=== PATIENT | male | born 1970 | race Caucasian/White ===

== ENCOUNTER 2018-10-11 09:42 | Inpatient (IN) | payer OTHER ==
[2018-10-11] MEDS ORDERED: ONDANSETRON 4 MG/2 ML VIAL IVPUSH ONE ×2 (09:59→13:02)
[2018-10-11] MEDS ORDERED: PANTOPRAZOLE SODIUM 40 MG VIAL IVPUSH ONE (09:59)
[2018-10-11] MEDS ORDERED: SODIUM CHLORIDE 0.9% 1000 ML INFUS.BAG IV ONE ×2 (10:00→11:54)
--- NOTE | 2018-10-11 10:06 | PDOC ---
History of Present Illness - General Chief Complaint: Pain Stated Complaint: VOMITING, ABD DISTENTION, DIARRHEA/CONSTIP Time Seen by Provider: 10/11/18 09:48 History Source: Patient Exam Limitations: No Limitations - History of Present Illness Initial Comments: 10/11/18 10:01 48 yo male here with his mother c/o abd pain n/v. states abd pain started one week ago. initially with mild discomfort and nausea, over the last 2 days pain has progressed to vomiting . pt has threw up today too many times to count. emesis is coffee grounds. abd distension and pain. mostly right sided. no h/o prior abd surgery. also c/o constipation. pt was started on amoxicillin and zofran by doctor few days ago for possible strept throat. had sick contact of nephew who had strept throat. no urinary complaints. does feel generalized weakness and lightheaded. denies vertigo. Past History - Past Medical History Allergies/Adverse Reactions: Allergies Allergy/AdvReac Type Severity Reaction Status Date / Time No Known Allergies Allergy Verified 10/11/18 09:44 Home Medications: Ambulatory Orders Amoxicillin - [Amoxicillin 500mg Capsule -] 500 mg PO BID 10/11/18 Ondansetron HCl [Zofran] 4 mg PO TID PRN 10/11/18 COPD: No Other medical history: CEREBRAL PALSEY Review of Systems - Review of Systems Constitutional: No: Chills, Diaphoresis, Fever HEENTM: No: Eye Pain Respiratory: Yes: Shortness of Breath. No: Cough, Orthopnea Cardiac (ROS): No: Chest Pain ABD/GI: Yes: Abdominal Distended, Constipated, Nausea, Vomiting : No: Burning, Dysuria Musculoskeletal: No: Back Pain, Gout Integumentary: No: Bruising All Other Systems: Reviewed and Negative *Physical Exam - Physical Exam Comments: 10/11/18 10:03 awake alert dry mucous membranes poor dentition. lungs with crackels right base , no wheezes normal effort. heart reg tachycardia. abd distended. RUQ ttp, pos whitmore's . mild right lower quad ttp. ext wwp no edema. skin warm and dry mild pallor. ED Treatment Course - LABORATORY CBC & Chemistry Diagram: 10/11/18 10:15 10/11/18 10:15 - RADIOLOGY Radiology Studies Ordered: Category Date Time Status CHEST X-RAY PORTABLE* [RAD] Stat Radiology 10/11/18 10:00 Ordered GALLBLADDER US [US] Stat Ultrasound 10/11/18 09:58 Ordered Medical Decision Making - Medical Decision Making 10/11/18 10:05 48 yo male with no pmhx here with n/v abd pain which started one week ago, distended abd with ruq ttp. differential cholecystitis, pud, gastric ulcer, perforated ulcer, appendicitis, pyelonephritis, renal colic, plan ruq us, labs lipase, if nondiagnostic will require ct a/p . upright chest xray r/o free air. if fluids rescusitationn, antacid and anti-emetics. 10/11/18 11:52 pt in renal failure creatinine of 3, high wbc 23. us gb normal. will obtain ct / no oral or iv contrast due to severe distension, vomiting concerns for aspiration, and renal failure. iv hydration given, second liter. cxr wtih what appears dilated loops bowel, unclear if free air. 10/11/18 13:03 pt case d/w dr correa promotion producer for surgery. bowel obstruction with free air. pt lactate 6, has been given 2 L NS. wbc 23. given zosyn. pt with persistant emesis in ED. difficult NG tube. dr correa requesting transfer to [facility] for operation there. will d/w ICU due to severity of illness. 10/11/18 13:16 pt d/w student career development specialist at [facility], microblog sent. d/w ICU at [facility]. awaiting transfer and call back from hospitalist. 10/11/18 13:[address] MERCEDES, PT ACCEPTED . 10/11/18 14:14 ng TUBE PLACED, 1400 mL OUT. D/W ANESTHESIA, PT TO BE INTUBATED IN OR BY ANESTHESIA DUE TO FULL STOMACH, concerns for difficult intubation. awaiting superintendent track for transfer to [facility]. 10/11/18 15:06 following ng tube placement, stomach decompressoin, oxygen sats improved to 95 % wth NC 10/11/18 18:51 *DC/Admit/Observation/Transfer Diagnosis at time of Disposition: Bowel perforation, Sepsis Bowel obstruction Qualifiers: Intestinal obstruction type: other intestinal obstruction Renal failure Qualifiers: Renal failure chronicity: acute - Discharge Dispostion Condition at time of disposition: Stable Decision to Admit order: Yes - Referrals - Patient Instructions - Post Discharge Activity
[2018-10-11] MEDS ORDERED: ONDANSETRON 4 MG/2 ML VIAL ONE ×2 (10:23→13:28)
[2018-10-11] MEDS ORDERED: PANTOPRAZOLE SODIUM 40 MG VIAL ONE (10:23)
[2018-10-11 10:31] LABS: HEMATOCRIT 49.6 % (35.4-49); HEMOGLOBIN 16.4 GM/dl (11.7-16.9); MEAN CELL VOLUME 90.9 fl (80-96); MEAN PLT VOLUME 9.5 fl (7.5-11.1); PLATELET COUNT 562 K/MM3 (134-434); RBC 5.45 M/mm3 (4.00-5.60); RDW 13.7 % (11.9-15.9); WHITE BLOOD COUNT 23.1 K/mm3 (4.0-10.8)
[2018-10-11 10:50] LABS: ALK PHOS 80 U/L (45-117); ANION GAP 23 MMOL/L (8-16); BILIRUBIN,TOTAL 1.7 mg/dl (0.2-1); BLOOD UREA NITROGEN 65 mg/dl (7-18); CHLORIDE 82 mmol/L (98-107); CO2 25 mmol/L (21-32); CREATININE 3.4 mg/dl (0.55-1.3); GLUCOSE,RANDOM 150 mg/dl (74-106); POTASSIUM 3.7 mmol/L (3.5-5.1); SGOT/AST 46 U/L (15-37); SGPT/ALT 31 U/L (13-61); SODIUM 130 mmol/L (136-145); TOT PROT 6.8 g/dl (6.4-8.2)
[2018-10-11 11:04] LABS: INR 1.35 (0.82-1.09)
[2018-10-11 11:39] LABS: PLATELET ESTIMATE INCREASED; SMUDGE CELLS FEW
[2018-10-11 12:10] LABS: LIPASE 76 U/L (73-393)
[2018-10-11] MEDS ORDERED: PIPERACILLIN/TAZOB 3.375 GM 3.375 GM in DEXTROSE 5%-WATER - 50 ML IVPB ONE (12:28)
[2018-10-11] MEDS ORDERED: PIPERACILLIN/TAZOBACTAM 3.375 GM VIAL IVPB ONE (12:46)
[2018-10-11] MEDS ORDERED: BENZOCAINE 20% UNIT DOSE SPRAY MM ONE (12:48)
[2018-10-11] MEDS ORDERED: ALBUTEROL SO4 2.5/IPRATROPIUM 0.5 INH SOL 3 ML VIAL.NEB. NEB ONE ×2 (13:03→13:06)
[2018-10-11] MEDS ORDERED: ACETAMINOPHEN INJECTION 100 ML IVPB ONE (13:08)
[2018-10-11] MEDS ORDERED: ACETAMINOPHEN 1000 MG/100 ML VIAL (NON FORMULARY) IVPB ONE (13:17)
--- NOTE | 2018-10-11 13:26 | CONSULT ---
Consult Consult Specialty:: General Surgery Reason for Consultation:: Abdominal pain and vomiting - History of Present Illness History of Present Illness: 48 yo male PMH CP here with his mother c/o abd pain n/v. states abd pain started one week ago. initially with mild discomfort and nausea, over the last 2 days pain has progressed to vomiting . pt has threw up today too many times to count. emesis is coffee grounds. abdominal distension and pain. mostly right sided. no h/o prior abdominal surgery. also c/o constipation. patient was started on amoxicillin and zofran by doctor few days ago for possible strept throat. had sick contact of nephew who had strept throat. no urinary complaints. does feel generalized weakness and lightheaded. denies vertigo. we were called after the CT scan resulted to assess. 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) - Alcohol/Substance Use Hx Alcohol Use: No History of Substance Use: reports: None - Smoking History Smoking history: Never smoked Have you smoked in the past 12 months: No - Social History Usual Living Arrangement: Alone Place of : [facility] History of Recent Travel: No Home Medications - Allergies Allergies/Adverse Reactions: Allergies Allergy/AdvReac Type Severity Reaction Status Date / Time No Known Allergies Allergy Verified 10/11/18 09:44 - Home Medications Home Medications: Ambulatory Orders Amoxicillin - [Amoxicillin 500mg Capsule -] 500 mg PO BID 10/11/18 Ondansetron HCl [Zofran] 4 mg PO TID PRN 10/11/18 Review of Systems - Review of Systems Constitutional: denies: Chills, Fever Eyes: denies: Blind Spots, Recent Change in Vision HENT: denies: Difficult Swallowing, Toothache Neck: denies: Decreased ROM, Pain on Movement Cardiovascular: denies: Chest Pain, Palpitations Respiratory: denies: Cough, SOB Gastrointestinal: reports: Abdominal Pain, Bloating, Indigestion Genitourinary: denies: Discharge, Dysuria Breasts: reports: No Symptoms Reported. denies: Pain Musculoskeletal: denies: Back Pain, Decreased ROM, Muscle Pain Integumentary: denies: Wound, Other Neurological: denies: Seizure, Syncope Endocrine: denies: Unexplained Weight Gain, Unexplained Weight Loss Hematology/Lymphatic: denies: Easily Bruised, Excessive Bleeding Psychiatric: denies: Anxiety, Depression Physical Exam Vital Signs: Vital Signs Temperature 100.9 F H 10/11/18 13:22 Pulse Rate 107 H 10/11/18 13:22 Respiratory Rate 38 H 10/11/18 13:22 Blood Pressure 131/74 10/11/18 13:22 O2 Sat by Pulse Oximetry (%) 92 L 10/11/18 13:22 Constitutional: Yes: Well Nourished, Calm, Mild Distress, Obese Eyes: Yes: Conjunctiva Clear, EOM Intact HENT: Yes: Atraumatic, Normocephalic Neck: Yes: Supple, Trachea Midline Cardiovascular: Yes: Regular Rate and Rhythm, S1, S2 Respiratory: Yes: Regular, CTA Bilaterally Gastrointestinal: Yes: Normal Bowel Sounds, Soft ...Rectal Exam: Yes: Deferred Renal/: No: CVA Tenderness - Left, CVA Tenderness - Right Breast(s): No: Discharge from Nipple, Nipple Inversion Musculoskeletal: No: Muscle Pain, Muscle Weakness Extremities: No: Cool, Cyanosis Edema: No Peripheral Pulses WNL: Yes Integumentary: No: Jaundice, Rash Neurological: Yes: Alert, Oriented Psychiatric: Yes: Alert, Oriented Labs: CBC, BMP 10/11/18 10:15 10/11/18 10:15 Imaging - Results Chest X-ray: Report Reviewed, Image Reviewed Cat Scan: Report Reviewed (portal venous gas, pneumotosis intestinalis and pneumoperitoniuem), Image Reviewed Problem List - Problems (1) Bowel perforation Assessment/Plan: 48yo male with peritonitis and perforated viscus that will need surgical exploration NPO and IVF hydration IV antibiotics Adequate analgesia Exploratory Laparotomy, possible bowel ressection possible ostomy Discussed with patient risks, benefits and alternatives of aformentioned procedure, including but not limited to bleeding, infection, injury to adjacent structures, leak or injury, intraabdominal abscess, incisional hernia, need for further procedures, ; alternatives include antibiotics, delayed or no surgery - risks of this include failure of nonoperative therapy, perforation, sepsis, recurrence, . Patient desires to proceed with operation - will take to OR for above. Informed consent signed for same. Thank you for the opportunity to participate in the care of this patient. Code(s): K63.1 - PERFORATION OF INTESTINE (NONTRAUMATIC) (2) Cerebral palsy Code(s): G80.9 - CEREBRAL PALSY, UNSPECIFIED (3) Bowel obstruction Code(s): K56.609 - UNSP INTESTNL OBST, UNSP TO PARTIAL VERSUS COMPLETE OBST Qualifiers: Intestinal obstruction type: other intestinal obstruction (4) Renal failure Code(s): N19 - UNSPECIFIED KIDNEY FAILURE Qualifiers: Renal failure chronicity: acute (5) Sepsis Code(s): A41.9 - SEPSIS, UNSPECIFIED ORGANISM
[2018-10-11] MEDS ORDERED: LIDOCAINE HCL 2% JELLY (5 ML/TUBE) TP ONE (13:35)
[2018-10-11] MEDS ORDERED: LIDOCAINE HCL 2% JELLY (5 ML/TUBE) ONE (13:37)
[2018-10-11 14:54] LABS: URINE APPEARANCE CLOUDY; URINE BILIRUBIN 2+ (NEGATIVE); URINE COLOR YELLOW; URINE GLUCOSE (UA) NEGATIVE (NEGATIVE); URINE KETONE TRACE (NEGATIVE); URINE LEUK ESTERASE NEGATIVE (NEGATIVE); URINE NITRITE NEGATIVE (NEGATIVE); URINE PROTEIN 2+ (NEGATIVE)
[2018-10-11 14:56] LABS: EPI CELLS 1+ /HPF
[2018-10-11 14:57] LABS: AMORP URATES 3+ /hpf (NONE SEEN)
[2018-10-11 14:58] LABS: URINE HYALINE CAST 0-1 /lpf
[2018-10-11] MEDS ORDERED: SODIUM CHLORIDE 1,000 ML IV SCH ×2 (15:15→18:39)
[2018-10-11] MEDS ORDERED: CEFOXITIN SODIUM 2 GM IVPB ONE (16:23)
[2018-10-11] MEDS ORDERED: cefOXitin SODIUM 2 GM VIAL (RESTRICTED TO ID) IVPB ONE (16:26)
[2018-10-11] MEDS ORDERED: PROPOFOL 20 ML ONE (16:34)
[2018-10-11] MEDS ORDERED: fentaNYL CITRATE 250 MCG/5 ML VIAL ONE ×2 (16:34→20:53)
[2018-10-11] MEDS ORDERED: ROCURONIUM BROMIDE 50 MG/5 ML VIAL ONE ×2 (16:35)
[2018-10-11] MEDS ORDERED: DEXAMETHASONE SOD PHOSPHATE 4 MG/1 ML VIAL ONE (16:49)
[2018-10-11] MEDS ORDERED: MIDAZOLAM HCL 2 MG/2 ML SINGLE DOSE VIAL ONE ×2 (18:14→18:25)
--- NOTE | 2018-10-11 18:28 | OP ---
Operative Note - Note: Operative Date: 10/11/18 Pre-Operative Diagnosis: perforated viscus and pneumoperitonium Operation: exploratory laparotomy, ileocecetomy, with ileocolic stapled anastomosis Findings: ruptured appendix with abscess and fecal contamination of RLQ. Surgeon: Preet Calle Billet Bed Operator: Zack Aponte Anesthesiologist/FAMILY MANAGER: Manjinder Gould Anesthesia: General Specimens Removed: portion of ileum, cecem, appendix ruptued at the base Estimated Blood Loss (mls): 30 Drains & Tubes with Location: hall, NGT Fluid Volume Replaced (mls): 5,100 Operative Report Dictated: Yes
[2018-10-11] MEDS ORDERED: MIDAZOLAM HCL 2 MG/2 ML SINGLE DOSE VIAL IVPUSH PRN ×2 (18:53→22:30)
--- NOTE | 2018-10-11 19:41 | CONSULT ---
Consultation: REQUESTING PROVIDER: CONSULT REQUEST: We have been asked to medically evaluate this patient for ( specify). HISTORY OF PRESENT ILLNESS: REVIEW OF SYSTEMS: CONSTITUTIONAL: Absent: fever, chills, diaphoresis, generalized weakness, malaise, loss of appetite, weight change HEENT: Absent: rhinorrhea, nasal congestion, throat pain, throat swelling, difficulty swallowing, mouth swelling, ear pain, eye pain, visual changes CARDIOVASCULAR: Absent: chest pain, syncope, palpitations, irregular heart rate, lightheadedness , peripheral edema RESPIRATORY: Absent: cough, shortness of breath, dyspnea with exertion, orthopnea, wheezing, stridor, hemoptysis GASTROINTESTINAL: Absent: abdominal pain, abdominal distension, nausea, vomiting, diarrhea, constipation, melena, hematochezia GENITOURINARY: Absent: dysuria, frequency, urgency, hesitancy, hematuria, flank pain, genital pain MUSCULOSKELETAL: Absent: myalgia, arthralgia, joint swelling, back pain, neck pain SKIN: Absent: rash, itching, pallor HEMATOLOGIC/IMMUNOLOGIC: Absent: easy bleeding, easy bruising, lymphadenopathy, frequent infections ENDOCRINE: Absent: unexplained weight gain, unexplained weight loss, heat intolerance, cold intolerance NEUROLOGIC: Absent: headache, focal weakness or paresthesias, dizziness, unsteady gait, seizure, mental status changes, bladder or bowel incontinence PSYCHIATRIC: Absent: anxiety, depression, suicidal or homicidal ideation, hallucinations. PHYSICAL EXAMINATION Vital Signs - 24 hr 10/11/18 10/11/18 10/11/18 09:42 10:30 13:22 Temperature 97.6 F 100.9 F H 100.9 F H Pulse Rate 115 H Pulse Rate [ 107 H Left Apical] Respiratory 20 38 H Rate Blood Pressure 119/73 Blood Pressure 131/74 [Left Arm] O2 Sat by Pulse 95 92 L Oximetry (%) 10/11/18 10/11/18 10/11/18 14:28 14:30 15:15 Temperature 97.6 F Pulse Rate 111 H 101 H Pulse Rate [ 102 H Left Apical] Respiratory 31 H 33 H Rate Blood Pressure 125/74 Blood Pressure 129/77 [Left Arm] O2 Sat by Pulse 96 95 Oximetry (%) 10/11/18 10/11/18 10/11/18 18:43 19:00 19:08 Temperature 97. F L Pulse Rate 97 H 92 H Pulse Rate [ Left Apical] Respiratory 10 10 14 Rate Blood Pressure 117/65 118/71 Blood Pressure [Left Arm] O2 Sat by Pulse 95 96 Oximetry (%) 10/11/18 19:15 Temperature Pulse Rate 95 H Pulse Rate [ Left Apical] Respiratory 10 Rate Blood Pressure 126/72 Blood Pressure [Left Arm] O2 Sat by Pulse 98 Oximetry (%) GENERAL: Awake, alert, and fully oriented, in no acute distress. HEAD: Normal with no signs of trauma. EYES: Pupils equal, round and reactive to light, extraocular movements intact, sclera anicteric, conjunctiva clear. No lid lag. EARS, NOSE, THROAT: Ears normal, nares patent, oropharynx clear without exudates. Moist mucous membranes. NECK: Normal range of motion, supple without lymphadenopathy, JVD, or masses. LUNGS: Breath sounds equal, clear to auscultation bilaterally. No wheezes, and no crackles. No accessory muscle use. HEART: Regular rate and rhythm, normal S1 and S2 without murmur, rub or gallop. ABDOMEN: Soft, nontender, not distended, normoactive bowel sounds, no guarding, no rebound, no masses. No hepatomegaly or splenomegaly. MUSCULOSKELETAL: Normal range of motion at all joints. No bony deformities or tenderness. No CVA tenderness. UPPER EXTREMITIES: 2+ pulses, warm, well-perfused. No cyanosis. No clubbing. Cap refill <2 seconds. No peripheral edema. LOWER EXTREMITIES: 2+ pulses, warm, well-perfused. No calf tenderness. No peripheral edema. NEUROLOGICAL: Cranial nerves II-XII intact. Normal speech. Normal gait. PSYCHIATRIC: Cooperative. Good eye contact. Appropriate mood and affect. SKIN: Warm, dry, normal turgor, no rashes or lesions noted. Laboratory Results - last 24 hr 10/11/18 10/11/18 10/11/18 10:10 10:12 10:15 WBC 23.1 H RBC 5.45 Hgb 16.4 Hct 49.6 H MCV 90.9 MCH 30.0 MCHC 33.0 RDW 13.7 Plt Count 562 H MPV 9.5 Absolute Neuts (auto) 18.7 Neutrophils % No Result Required. Neutrophils % (Manual) 49.0 Band Neutrophils % 22.0 H Lymphocytes % No Result Required. Lymphocytes % (Manual) 12.0 Monocytes % (Manual) 10 Metamyelocytes 7 H Smudge Cells Few Platelet Estimate Increased Platelet Comment Few giant platelets PT with INR 15.0 H INR 1.35 H PTT (Actin FS) 22.0 L Sodium Potassium Chloride Carbon Dioxide Anion Gap BUN Creatinine Creat Clearance w eGFR Random Glucose Lactic Acid Calcium Total Bilirubin AST ALT Alkaline Phosphatase Total Protein Albumin Lipase Urine Color Urine Appearance Urine pH Ur Specific Bow Urine Protein Urine Glucose (UA) Urine Ketones Urine Blood Urine Nitrite Urine Bilirubin Urine Urobilinogen Ur Leukocyte Esterase Urine RBC Urine WBC Ur Epithelial Cells Amorphous Urates Hyaline Casts Group A Strep Rapid Blood Type O POSITIVE Antibody Screen 10/11/18 10/11/18 10/11/18 10:15 10:15 10:15 WBC RBC Hgb Hct MCV MCH MCHC RDW Plt Count MPV Absolute Neuts (auto) Neutrophils % Neutrophils % (Manual) Band Neutrophils % Lymphocytes % Lymphocytes % (Manual) Monocytes % (Manual) Metamyelocytes Smudge Cells Platelet Estimate Platelet Comment PT with INR INR PTT (Actin FS) Sodium 130 L Potassium 3.7 Chloride 82 L Carbon Dioxide 25 Anion Gap 23 H BUN 65 H Creatinine 3.4 H Creat Clearance w eGFR 19.35 Random Glucose 150 H Lactic Acid 6.6 H* Calcium 9.0 Total Bilirubin 1.7 H AST 46 H ALT 31 Alkaline Phosphatase 80 Total Protein 6.8 Albumin 3.0 L Lipase 76 Urine Color Urine Appearance Urine pH Ur Specific Bow Urine Protein Urine Glucose (UA) Urine Ketones Urine Blood Urine Nitrite Urine Bilirubin Urine Urobilinogen Ur Leukocyte Esterase Urine RBC Urine WBC Ur Epithelial Cells Amorphous Urates Hyaline Casts Group A Strep Rapid Negative Blood Type Antibody Screen 10/11/18 10/11/18 10/11/18 10:15 14:29 14:45 WBC RBC Hgb Hct MCV MCH MCHC RDW Plt Count MPV Absolute Neuts (auto) Neutrophils % Neutrophils % (Manual) Band Neutrophils % Lymphocytes % Lymphocytes % (Manual) Monocytes % (Manual) Metamyelocytes Smudge Cells Platelet Estimate Platelet Comment PT with INR INR PTT (Actin FS) Sodium Potassium Chloride Carbon Dioxide Anion Gap BUN Creatinine Creat Clearance w eGFR Random Glucose Lactic Acid 3.8 H* Calcium Total Bilirubin AST ALT Alkaline Phosphatase Total Protein Albumin Lipase Urine Color Yellow Urine Appearance Cloudy Urine pH 5.0 Ur Specific Bow >= 1.030 Urine Protein 2+ H Urine Glucose (UA) Negative Urine Ketones Trace H Urine Blood 1+ H Urine Nitrite Negative Urine Bilirubin 2+ H Urine Urobilinogen 1.0 Ur Leukocyte Esterase Negative Urine RBC 2-5 Urine WBC 2-5 Ur Epithelial Cells 1+ Amorphous Urates 3+ Hyaline Casts 0-1 Group A Strep Rapid Blood Type O POSITIVE Antibody Screen Negative Active Medications Generic Name Dose Route Start Last Admin Trade Name Freq PRN Reason Stop Dose Admin Chlorhexidine Gluconate 1 applic 10/11/18 22:00 Hibiclens For Decolonization - TP HS LYNNE Fentanyl 50 mcg 10/11/18 18:52 Sublimaze Injection - IVPUSH 10/12/18 04:00 Q5M PRN PAIN-PACU ORDER X 4 DOSES ONLY Sodium Chloride 1,000 mls @ 200 mls/hr 10/11/18 18:39 Normal Saline - IV ASDIR [facility] Midazolam HCl 5 mg 10/11/18 18:53 Versed - IVPUSH 10/12/18 18:52 ONCE PRN AGITATION Mupirocin 1 applic 10/11/18 22:00 Bactroban Ointment (For Decolonization) - NS 10/16/18 21:59 BID [facility] ASSESSMENT/PLAN: Dispo: We will continue to follow the patient. Thank you for this consultative opportunity.
--- NOTE | 2018-10-11 19:42 | CONSULT ---
Consultation: REQUESTING PROVIDER: CONSULT REQUEST: We have been asked to medically evaluate this patient for ( post op care). HISTORY OF PRESENT ILLNESS: Patient is sedated and intubated. History obtained from the chart. Patient is a 48 year old male was brought in to the ED by family for evaluation of abdominal pain, nausea and vomiting x week ago. Patient had vomiting, uncountable times, later was coffee ground hence brought in to the ED. Patient was treated with Amoxicillin and Zofran for possible strep throat few days ago as he had sick contact with nephew who had Strep throat. In the ED, CT Abdomen/Pelvis showed: Pneumoperitoneum indicative of bowel perforation. High-grade SBO. Suspected portal venous air. He was then taken to the OR for emergent Ex lap and brought in to the ICU for further monitoring. PAST MEDICAL HISTORY: Cerebral palsy (Mild, able to communicate and give consent ) ALLERGIES: NKDA PAST SURGICAL HISTORY: Unknown SOCIAL HISTORY Smoking: Unknown Alcohol: Unknown Drugs: Unknown REVIEW OF SYSTEMS: Unable to provide PHYSICAL EXAMINATION Vital Signs - 24 hr 10/11/18 10/11/18 10/11/18 09:42 10:30 13:22 Temperature 97.6 F 100.9 F H 100.9 F H Pulse Rate 115 H Pulse Rate [ 107 H Left Apical] Respiratory 20 38 H Rate Blood Pressure 119/73 Blood Pressure 131/74 [Left Arm] O2 Sat by Pulse 95 92 L Oximetry (%) 10/11/18 10/11/18 10/11/18 14:28 14:30 15:15 Temperature 97.6 F Pulse Rate 111 H 101 H Pulse Rate [ 102 H Left Apical] Respiratory 31 H 33 H Rate Blood Pressure 125/74 Blood Pressure 129/77 [Left Arm] O2 Sat by Pulse 96 95 Oximetry (%) 10/11/18 10/11/18 10/11/18 18:43 19:00 19:08 Temperature 97. F L Pulse Rate 97 H 92 H Pulse Rate [ Left Apical] Respiratory 10 10 14 Rate Blood Pressure 117/65 118/71 Blood Pressure [Left Arm] O2 Sat by Pulse 95 96 Oximetry (%) 10/11/18 19:15 Temperature Pulse Rate 95 H Pulse Rate [ Left Apical] Respiratory 10 Rate Blood Pressure 126/72 Blood Pressure [Left Arm] O2 Sat by Pulse 98 Oximetry (%) GENERAL: Intubated and sedated. EYES: No pallor or icterus. EARS, NOSE, THROAT:Moist mucous membranes. NECK: No JVD. LUNGS:B/L decreased breath sounds at the bases, no added sounds. HEART: Regular rate and rhythm, normal S1 and S2 without murmur. ABDOMEN: Surgical dressing in place. Hypoactive bowel sounds. UPPER EXTREMITIES: No peripheral edema. LOWER EXTREMITIES: No peripheral edema. NEUROLOGICAL: Off sedation, able to follow commands and also wrote " Thank you very much" SKIN: Warm, dry, normal turgor, no rashes or lesions noted. Laboratory Results - last 24 hr 10/11/18 10/11/18 10/11/18 10:10 10:12 10:15 WBC 23.1 H RBC 5.45 Hgb 16.4 Hct 49.6 H MCV 90.9 MCH 30.0 MCHC 33.0 RDW 13.7 Plt Count 562 H MPV 9.5 Absolute Neuts (auto) 18.7 Neutrophils % No Result Required. Neutrophils % (Manual) 49.0 Band Neutrophils % 22.0 H Lymphocytes % No Result Required. Lymphocytes % (Manual) 12.0 Monocytes % (Manual) 10 Metamyelocytes 7 H Smudge Cells Few Platelet Estimate Increased Platelet Comment Few giant platelets PT with INR 15.0 H INR 1.35 H PTT (Actin FS) 22.0 L Sodium Potassium Chloride Carbon Dioxide Anion Gap BUN Creatinine Creat Clearance w eGFR Random Glucose Lactic Acid Calcium Total Bilirubin AST ALT Alkaline Phosphatase Total Protein Albumin Lipase Urine Color Urine Appearance Urine pH Ur Specific [place] Urine Protein Urine Glucose (UA) Urine Ketones Urine Blood Urine Nitrite Urine Bilirubin Urine Urobilinogen Ur Leukocyte Esterase Urine RBC Urine WBC Ur Epithelial Cells Amorphous Urates Hyaline Casts Group A Strep Rapid Blood Type O POSITIVE Antibody Screen 10/11/18 10/11/18 10/11/18 10:15 10:15 10:15 WBC RBC Hgb Hct MCV MCH MCHC RDW Plt Count MPV Absolute Neuts (auto) Neutrophils % Neutrophils % (Manual) Band Neutrophils % Lymphocytes % Lymphocytes % (Manual) Monocytes % (Manual) Metamyelocytes Smudge Cells Platelet Estimate Platelet Comment PT with INR INR PTT (Actin FS) Sodium 130 L Potassium 3.7 Chloride 82 L Carbon Dioxide 25 Anion Gap 23 H BUN 65 H Creatinine 3.4 H Creat Clearance w eGFR 19.35 Random Glucose 150 H Lactic Acid 6.6 H* Calcium 9.0 Total Bilirubin 1.7 H AST 46 H ALT 31 Alkaline Phosphatase 80 Total Protein 6.8 Albumin 3.0 L Lipase 76 Urine Color Urine Appearance Urine pH Ur Specific [place] Urine Protein Urine Glucose (UA) Urine Ketones Urine Blood Urine Nitrite Urine Bilirubin Urine Urobilinogen Ur Leukocyte Esterase Urine RBC Urine WBC Ur Epithelial Cells Amorphous Urates Hyaline Casts Group A Strep Rapid Negative Blood Type Antibody Screen 10/11/18 10/11/18 10/11/18 10:15 14:29 14:45 WBC RBC Hgb Hct MCV MCH MCHC RDW Plt Count MPV Absolute Neuts (auto) Neutrophils % Neutrophils % (Manual) Band Neutrophils % Lymphocytes % Lymphocytes % (Manual) Monocytes % (Manual) Metamyelocytes Smudge Cells Platelet Estimate Platelet Comment PT with INR INR PTT (Actin FS) Sodium Potassium Chloride Carbon Dioxide Anion Gap BUN Creatinine Creat Clearance w eGFR Random Glucose Lactic Acid 3.8 H* Calcium Total Bilirubin AST ALT Alkaline Phosphatase Total Protein Albumin Lipase Urine Color Yellow Urine Appearance Cloudy Urine pH 5.0 Ur Specific [place] >= 1.030 Urine Protein 2+ H Urine Glucose (UA) Negative Urine Ketones Trace H Urine Blood 1+ H Urine Nitrite Negative Urine Bilirubin 2+ H Urine Urobilinogen 1.0 Ur Leukocyte Esterase Negative Urine RBC 2-5 Urine WBC 2-5 Ur Epithelial Cells 1+ Amorphous Urates 3+ Hyaline Casts 0-1 Group A Strep Rapid Blood Type O POSITIVE Antibody Screen Negative Active Medications Generic Name Dose Route Start Last Admin Trade Name Freq PRN Reason Stop Dose Admin Chlorhexidine Gluconate 1 applic 10/11/18 22:00 Hibiclens For Decolonization - TP HS [facility] Fentanyl 50 mcg 10/11/18 18:52 Sublimaze Injection - IVPUSH 10/12/18 04:00 Q5M PRN PAIN-PACU ORDER X 4 DOSES ONLY Sodium Chloride 1,000 mls @ 200 mls/hr 10/11/18 18:39 Normal Saline - IV ASDIR [facility] Midazolam HCl 5 mg 10/11/18 18:53 Versed - IVPUSH 10/12/18 18:52 ONCE PRN AGITATION Mupirocin 1 applic 10/11/18 22:00 Bactroban Ointment (For Decolonization) - NS 10/16/18 21:59 BID [facility] IMAGING: CT Abdomen/Pelvis showed 1. Pneumoperitoneum indicative of bowel perforation. 2. Marked distention of the stomach and proximal small bowel loops consistent with a high-grade SBO. 3. Suspected portal venous air. 4. Atrophic horseshoe kidneys. ASSESSMENT/PLAN: Patient is a 48 year old male with significant past medical history of Cerebral palsy (mild) was brought in to the ED by family for evaluation of abdominal pain , nausea and vomiting x week ago was found to have perforated viscus, went for emergent Ex. lap and now brought in to the ICU post op intubated/sedated for further monitoring # Severe sepsis due to Perforated viscus and pneumoperitoneuum from ruptured appendix with abscess and fecal contamination of RLQ s/p Exploratory laparotomy, ileocecetomy with ileocolic stapled anastomosis-- ---POD 0 Received 5.5 L of fluids (reported patient was severely dehydrated), EBL 30. Sedated and Intubated A/C settings at 10/600/100/5 Started on Fentanyl 50mcg and Propofol. Has been hypotensive with Propofol. Will switch to versed 2mg Q3H PRN. If patient still gets agitated, will start on Versed Drip IV NS @ 100 mls/hr Received IV Zosyn 2.275 gm and Cefoxitin once dose Continued IV Zosyn 2.275 gm Q8H and 1000 mg of Vanc one dose ordered. ID consult requested Lactic acid 6.6---> 3.8---> 2.9 Post op labs repeated. NG in place, with low wall suction draining fluid Tomlinson in place, monitor urinary output. Blood cultures/Urine cultures/ Periotneal fluid pending Repeat labs and CXR in AM # Acute kidney injury likely prerenal Creatinien 3.4--> 3.2 Given 5.5 L of fluid in the OR. Will continue IV NS @ 100 mls.hr Avoid nephrotoxic drug # FEN IV NS @ 100 mls/hr Electrolytes WNL NPO # Prophylaxis For DVT: On SCDs, no chemical prophylaxis For GI: IV Protonix daily # Code Status: Full Code. Illness, Investigation and plan of care explained to the patients family. They verbalized understanding. Evie Gaming, PGY 3 Dispo: We will continue to follow the patient. Thank you for this consultative opportunity.
[2018-10-11] MEDS ORDERED: PROPOFOL 1,000,000 MCG/100 ML VIAL IVPB SCH (19:45)
--- NOTE | 2018-10-11 19:57 | HP ---
Admitting History and Physical - Primary Care Physician PCP: Mark Camp - Admission Chief Complaint: abdominal pain History of Present Illness: 48 yo male here with his mother c/o abd pain n/v. states abd pain started one week ago. initially with mild discomfort and nausea, over the last 2 days pain has progressed to vomiting . pt has threw up today too many times to count. emesis is coffee grounds. abd distension and pain. mostly right sided. no h/o prior abd surgery. also c/o constipation. pt was started on amoxicillin and zofran by doctor few days ago for possible strept throat. had sick contact of nephew who had strept throat. no urinary complaints. does feel generalized weakness and lightheaded. denies vertigo. - Smoking History Smoking history: Never smoked Have you smoked in the past 12 months: No - Alcohol/Substance Use Hx Alcohol Use: No History of Substance Use: reports: None - Social History History of Recent Travel: No Home Medications - Allergies Allergies/Adverse Reactions: Allergies Allergy/AdvReac Type Severity Reaction Status Date / Time No Known Allergies Allergy Verified 10/11/18 09:44 - Home Medications Home Medications: Ambulatory Orders Amoxicillin - [Amoxicillin 500mg Capsule -] 500 mg PO BID 10/11/18 Ondansetron HCl [Zofran] 4 mg PO TID PRN 10/11/18 Physical Examination Vital Signs: Vital Signs Temperature 97. F L 10/11/18 18:43 Pulse Rate 95 H 10/11/18 19:15 Respiratory Rate 10 10/11/18 19:15 Blood Pressure 126/72 10/11/18 19:15 O2 Sat by Pulse Oximetry (%) 98 10/11/18 19:15 Constitutional: Yes: Calm Cardiovascular: Yes: Regular Rate and Rhythm Respiratory: Yes: Rhonchi Gastrointestinal: Yes: Hypoactive Bowel Sounds Extremities: Yes: WNL Edema: No Neurological: Yes: Other (intubated) Labs: CBC, BMP 10/11/18 10:15 10/11/18 10:15 Imaging - Results Cat Scan: Report Reviewed Problem List - Problems (1) Appendix perforation Assessment/Plan: s/p surgery intubated iv abx ng tube Code(s): K35.32 - ACUTE APPENDICITIS WITH PERF AND LOC PERITONITIS, W/O ABSCS (2) Bowel obstruction Assessment/Plan: s/p surgery Code(s): K56.609 - UNSP INTESTNL OBST, UNSP TO PARTIAL VERSUS COMPLETE OBST Qualifiers: Intestinal obstruction type: other intestinal obstruction (3) Bowel perforation Code(s): K63.1 - PERFORATION OF INTESTINE (NONTRAUMATIC) (4) Sepsis Assessment/Plan: on abx Code(s): A41.9 - SEPSIS, UNSPECIFIED ORGANISM Assessment/Plan Laboratory Tests 10/11/18 10/11/18 10/11/18 10:10 10:12 10:15 WBC 23.1 H RBC 5.45 Hgb 16.4 Hct 49.6 H MCV 90.9 MCH 30.0 MCHC 33.0 RDW 13.7 Plt Count 562 H MPV 9.5 Absolute Neuts (auto) 18.7 Neutrophils % No Result Required. Neutrophils % (Manual) 49.0 Band Neutrophils % 22.0 H Lymphocytes % No Result Required. Lymphocytes % (Manual) 12.0 Monocytes % (Manual) 10 Metamyelocytes 7 H Smudge Cells Few Platelet Estimate Increased Platelet Comment Few giant platelets PT with INR 15.0 H INR 1.35 H PTT (Actin FS) 22.0 L Sodium Potassium Chloride Carbon Dioxide Anion Gap BUN Creatinine Creat Clearance w eGFR Random Glucose Lactic Acid Calcium Total Bilirubin AST ALT Alkaline Phosphatase Total Protein Albumin Lipase Urine Color Urine Appearance Urine pH Ur Specific [place] Urine Protein Urine Glucose (UA) Urine Ketones Urine Blood Urine Nitrite Urine Bilirubin Urine Urobilinogen Ur Leukocyte Esterase Urine RBC Urine WBC Ur Epithelial Cells Amorphous Urates Hyaline Casts Group A Strep Rapid Blood Type O POSITIVE Antibody Screen 10/11/18 10/11/18 10/11/18 10:15 10:15 10:15 WBC RBC Hgb Hct MCV MCH MCHC RDW Plt Count MPV Absolute Neuts (auto) Neutrophils % Neutrophils % (Manual) Band Neutrophils % Lymphocytes % Lymphocytes % (Manual) Monocytes % (Manual) Metamyelocytes Smudge Cells Platelet Estimate Platelet Comment PT with INR INR PTT (Actin FS) Sodium 130 L Potassium 3.7 Chloride 82 L Carbon Dioxide 25 Anion Gap 23 H BUN 65 H Creatinine 3.4 H Creat Clearance w eGFR 19.35 Random Glucose 150 H Lactic Acid 6.6 H* Calcium 9.0 Total Bilirubin 1.7 H AST 46 H ALT 31 Alkaline Phosphatase 80 Total Protein 6.8 Albumin 3.0 L Lipase 76 Urine Color Urine Appearance Urine pH Ur Specific [place] Urine Protein Urine Glucose (UA) Urine Ketones Urine Blood Urine Nitrite Urine Bilirubin Urine Urobilinogen Ur Leukocyte Esterase Urine RBC Urine WBC Ur Epithelial Cells Amorphous Urates Hyaline Casts Group A Strep Rapid Negative Blood Type Antibody Screen 10/11/18 10/11/18 10/11/18 10:15 14:29 14:45 WBC RBC Hgb Hct MCV MCH MCHC RDW Plt Count MPV Absolute Neuts (auto) Neutrophils % Neutrophils % (Manual) Band Neutrophils % Lymphocytes % Lymphocytes % (Manual) Monocytes % (Manual) Metamyelocytes Smudge Cells Platelet Estimate Platelet Comment PT with INR INR PTT (Actin FS) Sodium Potassium Chloride Carbon Dioxide Anion Gap BUN Creatinine Creat Clearance w eGFR Random Glucose Lactic Acid 3.8 H* Calcium Total Bilirubin AST ALT Alkaline Phosphatase Total Protein Albumin Lipase Urine Color Yellow Urine Appearance Cloudy Urine pH 5.0 Ur Specific [place] >= 1.030 Urine Protein 2+ H Urine Glucose (UA) Negative Urine Ketones Trace H Urine Blood 1+ H Urine Nitrite Negative Urine Bilirubin 2+ H Urine Urobilinogen 1.0 Ur Leukocyte Esterase Negative Urine RBC 2-5 Urine WBC 2-5 Ur Epithelial Cells 1+ Amorphous Urates 3+ Hyaline Casts 0-1 Group A Strep Rapid Blood Type O POSITIVE Antibody Screen Negative Active Medications Generic Name Dose Route Start Last Admin Trade Name Freq PRN Reason Stop Dose Admin Chlorhexidine Gluconate 1 applic 10/11/18 22:00 Hibiclens For Decolonization - TP HS [facility] Fentanyl 50 mcg 10/11/18 18:52 Sublimaze Injection - IVPUSH 10/12/18 04:00 Q5M PRN PAIN-PACU ORDER X 4 DOSES ONLY Sodium Chloride 1,000 mls @ 200 mls/hr 10/11/18 18:39 Normal Saline - IV ASDIR [facility] Fentanyl 500 mcg/ Dextrose 100 mls @ 10 mls/hr 10/11/18 19:45 IVPB TITR [facility] 50 MCG/HR Propofol 1,000,000 mcg in 100 mls @ 2.517 mls/hr 10/11/18 19:45 Diprivan - IVPB TITR [facility] Protocol 5 MCG/KG/MIN Midazolam HCl 5 mg 10/11/18 18:53 Versed - IVPUSH 10/12/18 18:52 ONCE PRN AGITATION Mupirocin 1 applic 10/11/18 22:00 Bactroban Ointment (For Decolonization) - NS 10/16/18 21:59 BID [facility] DIAGNOSIS Ruptured Appendicitis/Fecal Peritonitis s/p ex-lap/ileocecectomy/ileocolic anastamosis s/p Acute Respiratory Failure Severe Sepsis Acute Kidney Injury Lactic Acidosis Cerebral Palsy CC TIME 60 MIN - p
[2018-10-11 20:56] LABS: HEMOGLOBIN 14.9 GM/dL (11.7-16.9); MCH 31.3 pg (25.7-33.7); MCHC 34.5 g/dl (32.0-35.9); MEAN CELL VOLUME 90.7 fl (80-96); MEAN PLT VOLUME 9.1 fl (7.5-11.1); PLATELET COUNT 336 K/MM3 (134-434); RBC 4.74 M/mm3 (4.00-5.60); RDW 14.2 % (11.9-15.9); WHITE BLOOD COUNT 29.8 K/mm3 (4.0-10.0)
[2018-10-11] MEDS: MUPIROCIN 2% TOPICAL OINTMENT FOR DECOLONIZATION NS SCH (21:09)
[2018-10-11] MEDS: CHLORHEXIDINE GLUCONATE 4% CLEANSER FOR DECOLONIZATION TP SCH (21:10)
[2018-10-11 21:15] LABS: INR 1.29 (0.83-1.09); PROTHROMBIN TIME (PATIENT) 15.3 SEC (9.7-13.0)
[2018-10-11] MEDS: FENTANYL INJECTION 500 MCG in DEXTROSE 5%-WATER - 90 ML IVPB SCH (21:22)
[2018-10-11 21:28] LABS: ALBUMIN 1.6 g/dl (3.4-5.0); ALK PHOS 50 U/L (45-117); ANION GAP 13 MMOL/L (8-16); BILIRUBIN,TOTAL 1.9 mg/dL (0.2-1); BLOOD UREA NITROGEN 60 mg/dL (7-18); CHLORIDE 96 mmol/L (98-107); CO2 25 mmol/L (21-32); CREATININE 3.2 mg/dL (0.55-1.3); GLUCOSE,RANDOM 108 mg/dL (74-106); MAGNESIUM 2.1 mg/dL (1.8-2.4); PHOSPHOROUS 7.6 mg/dL (2.5-4.9); POTASSIUM 3.7 mmol/L (3.5-5.1); SGOT/AST 39 U/L (15-37); SGPT/ALT 25 U/L (13-61); SODIUM 134 mmol/L (136-145); TOT PROT 4.1 g/dl (6.4-8.2)
[2018-10-11 21:33] LABS: CALCIUM 6.9 mg/dL (8.5-10.1)
[2018-10-11 21:39] LABS: ARTERIAL BLD GAS O2 SATURATION 90.9 % (95-98); ARTERIAL BLOOD GAS PCO2 37.4 mmHg (35-45); ARTERIAL BLOOD GAS pH 7.39 (7.35-7.45)
[2018-10-11 21:40] LABS: ALLENS TEST POSITIVE; ARTERIAL BLOOD GAS PO2 66.4 mmHg (80-105)
--- NOTE | 2018-10-11 22:52 | EKG ---
Test Reason : Blood Pressure : / mmHG Vent. Rate : 109 BPM Atrial Rate : 109 BPM P-R Int : 122 ms QRS Dur : 092 ms QT Int : 362 ms P-R-T Axes : 026 026 004 degrees QTc Int : 487 ms SINUS TACHYCARDIA NONSPECIFIC ST AND T WAVE ABNORMALITY ABNORMAL ECG NO PREVIOUS ECGS AVAILABLE Confirmed by GILMA ESPINO MD ([id number]) on 10/11/2018 10:51:41 PM Referred By: DR BACA Confirmed By:GILMA ESPINO MD
[2018-10-11] MEDS ORDERED: PIPERACILLIN/TAZOB 2.25 GM 2.25 GM in DEXTROSE 5%-WATER - 50 ML IVPB SCH (23:45)
[2018-10-11] MEDS ORDERED: VANCOMYCIN 1 GRAM (PRE-DOCKED) 1,000 MG/250 ML BAG IVPB ONE (23:45)
[2018-10-12] MEDS ORDERED: DEXTROSE 5%-WATER - 50 ML IVPB ONE ×4 (02:03→21:43)
[2018-10-12] MEDS ORDERED: PIPERACILLIN/TAZOBACTAM 2.25 GM VIAL IVPB ONE ×4 (02:03→21:43)
[2018-10-12] MEDS: PIPERACILLIN/TAZOB 2.25 GM 2.25 GM in DEXTROSE 5%-WATER - 50 ML IVPB SCH ×4 (03:31→21:44)
[2018-10-12] MEDS: SODIUM CHLORIDE 1,000 ML IV SCH (03:31)
[2018-10-12 06:10] LABS: HEMATOCRIT 36.6 % (35.4-49); HEMOGLOBIN 12.4 GM/dL (11.7-16.9); MCH 31.1 pg (25.7-33.7); MCHC 33.9 g/dl (32.0-35.9); MEAN CELL VOLUME 91.7 fl (80-96); MEAN PLT VOLUME 9.4 fl (7.5-11.1); PLATELET COUNT 289 K/MM3 (134-434); RBC 3.99 M/mm3 (4.00-5.60); RDW 14.6 % (11.9-15.9)
[2018-10-12 06:20] LABS: ARTERIAL BLD GAS O2 SATURATION 97.8 % (95-98); ARTERIAL BLOOD GAS BASE EXCESS -0.5 meq/l (-2-2); ARTERIAL BLOOD GAS PCO2 35.4 mmHg (35-45); ARTERIAL BLOOD GAS PO2 119 mmHg (80-105); ARTERIAL BLOOD GAS pH 7.43 (7.35-7.45)
[2018-10-12] MEDS: ACETAMINOPHEN 1000 MG/100 ML VIAL (NON FORMULARY) IVPB PRN (06:27)
[2018-10-12 06:29] LABS: ALLENS TEST POSITIVE
[2018-10-12 06:57] LABS: ANION GAP 12 MMOL/L (8-16); BLOOD UREA NITROGEN 45 mg/dL (7-18); CHLORIDE 107 mmol/L (98-107); CO2 20 mmol/L (21-32); GLUCOSE,RANDOM 184 mg/dL (74-106); SODIUM 139 mmol/L (136-145)
[2018-10-12 06:58] LABS: ALBUMIN 0.9 g/dl (3.4-5.0); ALK PHOS 32 U/L (45-117); BILIRUBIN,TOTAL 1.7 mg/dL (0.2-1); MAGNESIUM 1.3 mg/dL (1.8-2.4); PHOSPHOROUS 4.1 mg/dL (2.5-4.9); SGOT/AST 33 U/L (15-37); SGPT/ALT 19 U/L (13-61); TOT PROT 2.7 g/dl (6.4-8.2)
--- NOTE | 2018-10-12 07:37 | PN ---
Physical Exam: SUBJECTIVE: Patient seen and examined at bedside. Pt has no symptomatic complaints. Awake and alert, communicating via writing that it is hot in the room. Denies chest pain, naqvi/d, n/v, abd pain. OBJECTIVE: Vital Signs Period Temp Pulse Resp BP Sys/Osorio Pulse Ox Last 24 Hr 97. F-100.9 F 92-115 10-38 84-131/60-87 92-98 GENERAL: Intubated and sedated although awake and alert, communicating via writing. EYES: No pallor or icterus. EARS, NOSE, THROAT:Moist mucous membranes. NECK: No JVD. LUNGS:B/L decreased breath sounds at the bases, no added sounds. HEART: Regular rate and rhythm, normal S1 and S2 without murmur. ABDOMEN: Surgical dressing in place, c/d/i. Hypoactive bowel sounds. UPPER EXTREMITIES: No peripheral edema. LOWER EXTREMITIES: No peripheral edema. NEUROLOGICAL: Able to follow commands and says he is "sweating" via writing SKIN: Warm, dry, normal turgor, no rashes or lesions noted. CBC, BMP 10/12/18 05:30 10/12/18 05:30 Active Medications Acetaminophen (Ofirmev Injection -) 1,000 mg IVPB Q6H PRN PRN Reason: PAIN LEVEL 7 - 10 Last Admin: 10/12/18 06:27 Dose: 1,000 mg Chlorhexidine Gluconate (Hibiclens For Decolonization -) 1 applic TP HS [facility] Last Admin: 10/11/18 21:10 Dose: 1 applic Fentanyl 500 mcg/ Dextrose 100 mls @ 10 mls/hr IVPB TITR [facility]; Protocol Last Admin: 10/11/18 21:22 Dose: 50 mcg/hr, 10 mls/hr Propofol (Diprivan -) 1,000,000 mcg in 100 mls @ 2.517 mls/hr IVPB TITR [facility]; Protocol Last Titration: 10/12/18 01:31 Dose: 10 mcg/kg/min, 5.035 mls/hr Piperacillin Sod/Tazobactam (Sod 2.25 gm/ Dextrose) 50 mls @ 100 mls/hr IVPB Q6H-IV [facility]; Protocol Last Admin: 10/12/18 03:31 Dose: 100 mls/hr Sodium Chloride (Normal Saline -) 1,000 mls @ 100 mls/hr IV ASDIR ON LICENSE OF [facility] Last Admin: 10/12/18 03:31 Dose: 100 mls/hr Midazolam HCl (Versed -) 5 mg IVPUSH ONCE PRN PRN Reason: AGITATION Stop: 10/12/18 18:52 Midazolam HCl (Versed -) 2 mg IVPUSH ONCE PRN PRN Reason: ANXIETY Stop: 10/12/18 22:29 Mupirocin (Bactroban Ointment (For Decolonization) -) 1 applic NS BID ON LICENSE OF [facility] Stop: 10/16/18 21:59 Last Admin: 10/11/18 21:09 Dose: 1 applic Pantoprazole Sodium (Protonix Iv) 40 mg IVPUSH DAILY ON LICENSE OF [facility] CONSULT: Surg- Dr. Calle Cardio- Dr. Mueller ID- Dr. Arroyo IMAGING: * Abd U/S (10/11/18): Limited study with sludge filled GB and air throughout biliary tree. * CTAP (10/11/18): Pneumoperitoneum indicative of bowel perf. Marked distension of stomach and proximal small bowel loops c/w high grade SBO. Suspected portal venous air. Atrophic horseshoe kidneys. * EKG (10/12/18): Afib w/ RVR, HR 137, QTc 465 ms, No ST-T changes ASSESSMENT/PLAN: 48M w/ pmhx of mild CP presented with perforated viscus and pneumoperitoneum admitted to the ICU for post-op monitoring s/p ex lap, ileocecotomy, with ileocolic stapled anastomosis, POD #1. Neuro -Extubated this AM. Doing well on venti-mask, satting 98%. Pulm -Satting at 97% on venturi mask -Cont to monitor O2 sat CV #Sinus tachycardia and intermittent PSVT -Per cardio, recommend IV Lopressor 5 mg Q4H for PSVT; then may give PO Lopressor when no longer NPO -Echo ordered to assess LV/RV and valvular fxn -cont to monitor tele for cardiac events GI #S/p ex lap 2/2 perf viscus and pneumoperitoneum, POD #1 -Per ID, cont Zosyn 2.25 Q6H IVPB (started 10/11/18) Day 1 -NG in place, with low wall suction draining fluid -Tomlinson in place, monitor urinary output. -Blood cultures/Urine cultures/ Peritoneal fluid pending -NS @ 100; will additionally give NS 2L bolus. Renal #TITI; Cr today 2.0 - improved -cont NS @ 100 -Add NS x2L bolus -Maintain urine output at >0.5cc/kg/hr; monitor UOP -recheck BMP #Hypokalemia; today K+ 2.6 -Repleted with KCl 10 mEq x3 bags; recheck BMP at 1pm today ID #Perforated viscus w/ ruptured appendix -Per ID, cont Zosyn 2.25 gm Q6H IVP -Peritoneal fluid cx, Ucx, Bcx pending -Throat cx neg Prophylaxis GI- Protonix 40 IVP QD DVT- SQH/SCDs FEN -NS @ 100 -replete lytes PRN (K+) -NPO dispo -cont to monitor in ICU Visit type - Emergency Visit Emergency Visit: Yes ED Registration Date: 10/11/18 Care time: The patient presented to the Emergency Department on the above date and was hospitalized for further evaluation of their emergent condition. - New Patient This patient is new to me today: No - Critical Care Critical Care patient: Yes Total Critical Care Time (in minutes): 30 Critical Care Statement: The care of this patient involved high complexity decision making to prevent further life threatening deterioration of the patient 's condition and/or to evaluate & treat vital organ system(s) failure or risk of failure.
[2018-10-12 07:39] LABS: POTASSIUM 2.6 mmol/L (3.5-5.1)
[2018-10-12] MEDS ORDERED: MAGNESIUM SULF 50% (8.12 MEQ/2 ML-1 GM VIAL) IVPB ONE (08:15)
[2018-10-12] MEDS ORDERED: fentaNYL CITRATE 250 MCG/5 ML VIAL ONE (08:27)
[2018-10-12] MEDS: KCL 10 MEQ IVPB 10 MEQ/100 ML INFUS.BAG IVPB SCH ×3 (08:34→11:42)
[2018-10-12] MEDS: FENTANYL INJECTION 500 MCG in DEXTROSE 5%-WATER - 90 ML IVPB SCH (08:36)
[2018-10-12 09:33] LABS: CALCIUM < 8.5 mg/dL (8.5-10.1)
[2018-10-12] MEDS: MUPIROCIN 2% TOPICAL OINTMENT FOR DECOLONIZATION NS SCH ×2 (10:16→21:44)
[2018-10-12] MEDS: PANTOPRAZOLE SODIUM 40 MG VIAL IVPUSH SCH (10:17)
[2018-10-12] MEDS ORDERED: METOPROLOL TARTRATE 5 MG/5 ML VIAL ONE (11:12)
--- NOTE | 2018-10-12 11:16 | PN ---
Progress Note, Physician Chief Complaint: abdominal pain History of Present Illness: 48 yo male PMH CP here with his mother c/o abd pain n/v. states abd pain started one week ago. initially with mild discomfort and nausea, over the last 2 days pain has progressed to vomiting . He has been stable post operatively. - Current Medication List Current Medications: Active Medications Acetaminophen (Ofirmev Injection -) 1,000 mg IVPB Q6H PRN PRN Reason: PAIN LEVEL 7 - 10 Last Admin: 10/12/18 06:27 Dose: 1,000 mg Chlorhexidine Gluconate (Hibiclens For Decolonization -) 1 applic TP HS [facility] Last Admin: 10/11/18 21:10 Dose: 1 applic Fentanyl 500 mcg/ Dextrose 100 mls @ 10 mls/hr IVPB TITR [facility]; Protocol Last Titration: 10/12/18 10:17 Dose: 0 mcg/hr, 0 mls/hr Propofol (Diprivan -) 1,000,000 mcg in 100 mls @ 2.517 mls/hr IVPB TITR [facility]; Protocol Last Titration: 10/12/18 08:35 Dose: 0 mcg/kg/min, 0 mls/hr Piperacillin Sod/Tazobactam (Sod 2.25 gm/ Dextrose) 50 mls @ 100 mls/hr IVPB Q6H-IV [facility]; Protocol Last Admin: 10/12/18 09:35 Dose: 100 mls/hr Sodium Chloride (Normal Saline -) 1,000 mls @ 100 mls/hr IV ASDIR [facility] Last Admin: 10/12/18 03:31 Dose: 100 mls/hr Midazolam HCl (Versed -) 5 mg IVPUSH ONCE PRN PRN Reason: AGITATION Stop: 10/12/18 18:52 Midazolam HCl (Versed -) 2 mg IVPUSH ONCE PRN PRN Reason: ANXIETY Stop: 10/12/18 22:29 Mupirocin (Bactroban Ointment (For Decolonization) -) 1 applic NS BID [facility] Stop: 10/16/18 21:59 Last Admin: 10/12/18 10:16 Dose: 1 applic Pantoprazole Sodium (Protonix Iv) 40 mg IVPUSH DAILY [facility] Last Admin: 10/12/18 10:17 Dose: 40 mg - Objective Vital Signs: Vital Signs Temperature 100.3 F H 10/12/18 05:00 Pulse Rate 112 H 10/12/18 09:00 Respiratory Rate 17 10/12/18 09:00 Blood Pressure 110/65 10/12/18 09:00 O2 Sat by Pulse Oximetry (%) 96 10/11/18 19:30 Vital Signs Period Temp Pulse Resp BP Sys/Osorio Pulse Ox Last 24 Hr 98.2 F-99 F 83-161 14-26 104-133/59-95 95-98 Intake & Output 10/12/18 10/13/18 10/13/18 23:59 07:59 15:59 Intake Total 2500 1400 Output Total 1100 2800 Balance 1400 -1400 Weight 203 lb 195 lb 11.2 oz Intake: IV 2000 1200 Normal Saline - 1,000 ml 1200 @ 100 mls/hr IV ASDIR [facility] Rx#:[id number] Normal Saline - 1,000 ml 1000 @ 1000 mls/hr IV ASDIR [facility] Rx#:[id number] Normal Saline - 1,000 ml 1000 @ 1000 mls/hr IV ASDIR [facility] Rx#:[id number] IVPB 500 200 Output: Gastric Drainage 800 Urine 1100 2000 Tomlinson 1100 2000 Other: Voiding Method Indwelling Catheter Bowel Movement No No Height 5 ft 8 in Body Mass Index (BMI) 30.9 Weight Measurement Method Built in [facility] Constitutional: Yes: Well Nourished, No Distress, Calm Eyes: Yes: Conjunctiva Clear, EOM Intact HENT: Yes: Atraumatic, Normocephalic Neck: Yes: Supple, Trachea Midline Cardiovascular: Yes: Regular Rate and Rhythm, S1, S2 Respiratory: Yes: Regular, CTA Bilaterally Gastrointestinal: Yes: Normal Bowel Sounds, Soft. No: Tenderness ...Rectal Exam: Yes: Deferred Genitourinary: No: CVA Tenderness - Left, CVA Tenderness - Right Musculoskeletal: No: Muscle Pain, Muscle Weakness Extremities: No: Cool, Cyanosis Edema: No Peripheral Pulses WNL: Yes Peripheral Pulses: Left Radial: 2+, Right Radial: 2+, Left Doralis Pedis: 2+, Right Dorsalis Pedis: 2+, Left Femoral: 2+, Right Femoral: 2+ Integumentary: No: Jaundice, Rash Wound/Incision: Yes: Clean/Dry, [place] Intact, Unapproximated Neurological: Yes: Alert, Oriented Psychiatric: Yes: Alert, Oriented Labs: CBC, BMP 10/12/18 05:30 10/12/18 05:30 INR, PTT INR 1.29 (0.83-1.09) H 10/11/18 20:30 Problem List - Problems (1) Bowel perforation Assessment/Plan: 48yo male with peritonitis and perforated viscus that will need surgical exploration POD#1 s/p Exp Lap, ileocecetomy for a ruptured appendicitis NPO and IVF hydration NGT to LCWS IV antibiotics per ID Adequate analgesia OOB aand ambulate will follow Code(s): K63.1 - PERFORATION OF INTESTINE (NONTRAUMATIC) (2) Cerebral palsy Code(s): G80.9 - CEREBRAL PALSY, UNSPECIFIED (3) Bowel obstruction Code(s): K56.609 - UNSP INTESTNL OBST, UNSP TO PARTIAL VERSUS COMPLETE OBST Qualifiers: Intestinal obstruction type: other intestinal obstruction (4) Renal failure Code(s): N19 - UNSPECIFIED KIDNEY FAILURE Qualifiers: Renal failure chronicity: acute (5) Sepsis Code(s): A41.9 - SEPSIS, UNSPECIFIED ORGANISM
--- NOTE | 2018-10-12 11:18 | CON.CARD ---
Consult Consult Specialty:: Cardiology Referred by:: Dr. Camp Reason for Consultation:: Cardiac evaluation - History of Present Illness Chief Complaint: Post op abdominal surgery for ruptured viscus and having narrow complex tachycardia intermittently History of Present Illness: Patient is a 48 year old male with underlying history of Cerebral Palsy who presented with nausea and vomiting and found to have pneumoperitoneum indicative of bowel perforation and underlying high grade SBO. Patient underwent emergent ex. laparotomy and repair and then now in ICU. He is awake and alert. He denies chest pain or SOB. Monitor reveals underlying sinus tachycardia at 110-120 bpm and at times develops what appears to be SVT at 160 bpm. WBC is elevated to 41,000. Denies headache or lightheadedness. He is on a ventimask O2 and is tolerating. Cardiology consultation was called for further evaluation. - History Source History Provided By: Patient, Family Member Limitations to Obtaining History: No Limitations - Past Surgical History Additional Surgical History: Surgery on his lower extemity in the past - Alcohol/Substance Use Hx Alcohol Use: No History of Substance Use: reports: None - Smoking History Smoking history: Never smoked Have you smoked in the past 12 months: No - Social History Usual Living Arrangement: Alone History of Recent Travel: No Home Medications - Allergies Allergies/Adverse Reactions: Allergies Allergy/AdvReac Type Severity Reaction Status Date / Time No Known Allergies Allergy Verified 10/11/18 09:44 - Home Medications Home Medications: Ambulatory Orders Amoxicillin - [Amoxicillin 500mg Capsule -] 500 mg PO BID 10/11/18 Ondansetron HCl [Zofran] 4 mg PO TID PRN 10/11/18 Review of Systems - Review of Systems Constitutional: denies: Chills, Fever Cardiovascular: denies: Chest Pain, Palpitations, Shortness of Breath Respiratory: denies: Cough, Hemoptysis, Orthopnea, PND, SOB, SOB on Exertion Gastrointestinal: reports: Abdominal Pain, Nausea, Vomiting Neurological: denies: Dizziness, Headache, Seizure, Syncope Vital Signs: Vital Signs Temperature 100.3 F H 10/12/18 05:00 Pulse Rate 112 H 10/12/18 09:00 Respiratory Rate 17 10/12/18 09:00 Blood Pressure 110/65 10/12/18 09:00 O2 Sat by Pulse Oximetry (%) 96 10/11/18 19:30 Neck: Yes: Supple Respiratory: Yes: CTA Bilaterally Gastrointestinal: Yes: Other (Post op) Cardiovascular: Yes: Regular Rate and Rhythm, Tachycardia JVD: No Carotid Bruit: No PMI: Non-Displaced Heart Sounds: Yes: S1, S2 Edema: No - Other Data Labs, Other Data: CBC, BMP 10/12/18 05:30 10/12/18 05:30 INR, PTT INR 1.29 (0.83-1.09) H 10/11/18 20:30 Troponin, BNP 10/11/18 20:30 Troponin I < 0.02 Laboratory Results - last 24 hr 10/11/18 10/11/18 10/11/18 10:15 10:15 14:29 WBC RBC Hgb Hct MCV MCH MCHC RDW Plt Count MPV Neutrophils % (Manual) Band Neutrophils % Lymphocytes % (Manual) Monocytes % (Manual) Metamyelocytes Smudge Cells Platelet Estimate Platelet Comment PT with INR INR Puncture Site ABG pH ABG pCO2 at Pt Temp ABG pO2 at Pt Temp ABG HCO3 ABG O2 Sat (Measured) ABG O2 Content ABG Base Excess Garry Test O2 Delivery Device Oxygen Flow Rate Vent Mode Vent Rate Mechanical Rate PEEP Pressure Support Vent Sodium Potassium Chloride Carbon Dioxide Anion Gap BUN Creatinine Creat Clearance w eGFR Random Glucose Lactic Acid 6.6 H* Calcium Phosphorus Magnesium Total Bilirubin AST ALT Alkaline Phosphatase Troponin I Total Protein Albumin Lipase Urine Color Yellow Urine Appearance Cloudy Urine pH 5.0 Ur Specific Ortley >= 1.030 Urine Protein 2+ H Urine Glucose (UA) Negative Urine Ketones Trace H Urine Blood 1+ H Urine Nitrite Negative Urine Bilirubin 2+ H Urine Urobilinogen 1.0 Ur Leukocyte Esterase Negative Urine RBC 2-5 Urine WBC 2-5 Ur Epithelial Cells 1+ Amorphous Urates 3+ Hyaline Casts 0-1 Blood Type O POSITIVE Antibody Screen Negative 10/11/18 10/11/18 10/11/18 20:30 20:30 20:30 WBC RBC Hgb Hct MCV MCH MCHC RDW Plt Count MPV Neutrophils % (Manual) Band Neutrophils % Lymphocytes % (Manual) Monocytes % (Manual) Metamyelocytes Smudge Cells Platelet Estimate Platelet Comment PT with INR INR Puncture Site ABG pH ABG pCO2 at Pt Temp ABG pO2 at Pt Temp ABG HCO3 ABG O2 Sat (Measured) ABG O2 Content ABG Base Excess Garry Test O2 Delivery Device Oxygen Flow Rate Vent Mode Vent Rate Mechanical Rate PEEP Pressure Support Vent Sodium 134 L Potassium 3.7 Chloride 96 L Carbon Dioxide 25 Anion Gap 13 BUN 60 H Creatinine 3.2 H Creat Clearance w eGFR 20.75 Random Glucose 108 H Lactic Acid 2.9 H* Calcium 6.9 L* Phosphorus 7.6 H Magnesium 2.1 Total Bilirubin 1.9 H AST 39 H ALT 25 Alkaline Phosphatase 50 Troponin I < 0.02 Total Protein 4.1 L Albumin 1.6 L Lipase Urine Color Urine Appearance Urine pH Ur Specific Ortley Urine Protein Urine Glucose (UA) Urine Ketones Urine Blood Urine Nitrite Urine Bilirubin Urine Urobilinogen Ur Leukocyte Esterase Urine RBC Urine WBC Ur Epithelial Cells Amorphous Urates Hyaline Casts Blood Type Antibody Screen 10/11/18 10/12/18 10/12/18 21:30 00:20 05:30 WBC 41.0 H* RBC 3.99 L Hgb 12.4 Hct 36.6 MCV 91.7 MCH 31.1 MCHC 33.9 RDW 14.6 Plt Count 289 MPV 9.4 Neutrophils % (Manual) Band Neutrophils % Lymphocytes % (Manual) Monocytes % (Manual) Metamyelocytes Smudge Cells Platelet Estimate Platelet Comment PT with INR INR Puncture Site Right radial ABG pH 7.39 ABG pCO2 at Pt Temp 37.4 ABG pO2 at Pt Temp 66.4 L ABG HCO3 22.1 ABG O2 Sat (Measured) 90.9 L ABG O2 Content 17.8 ABG Base Excess -2.0 Garry Test Positive O2 Delivery Device Mech vent Oxygen Flow Rate 100% Vent Mode A/c Vent Rate 10 Mechanical Rate Yes PEEP 5.0 Pressure Support Vent 600 Sodium Potassium Chloride Carbon Dioxide Anion Gap BUN Creatinine Creat Clearance w eGFR Random Glucose Lactic Acid 0.7 Calcium Phosphorus Magnesium Total Bilirubin AST ALT Alkaline Phosphatase Troponin I Total Protein Albumin Lipase Urine Color Urine Appearance Urine pH Ur Specific Ortley Urine Protein Urine Glucose (UA) Urine Ketones Urine Blood Urine Nitrite Urine Bilirubin Urine Urobilinogen Ur Leukocyte Esterase Urine RBC Urine WBC Ur Epithelial Cells Amorphous Urates Hyaline Casts Blood Type Antibody Screen 10/12/18 10/12/18 10/12/18 05:30 05:30 06:00 WBC RBC Hgb Hct MCV MCH MCHC RDW Plt Count MPV Neutrophils % (Manual) Band Neutrophils % Lymphocytes % (Manual) Monocytes % (Manual) Metamyelocytes Smudge Cells Platelet Estimate Platelet Comment PT with INR INR Puncture Site Right radial ABG pH 7.43 ABG pCO2 at Pt Temp 35.4 ABG pO2 at Pt Temp 119 H ABG HCO3 22.9 ABG O2 Sat (Measured) 97.8 ABG O2 Content 19.7 ABG Base Excess -0.5 Garry Test Positive O2 Delivery Device Oxygen Flow Rate 100 Vent Mode A/c Vent Rate 10 Mechanical Rate Yes PEEP 5.0 Pressure Support Vent 600 Sodium 139 Potassium 2.6 L* Chloride 107 Carbon Dioxide 20 L Anion Gap 12 BUN 45 H Creatinine 2.0 H Creat Clearance w eGFR 35.69 Random Glucose 184 H Lactic Acid 2.9 H* Calcium < 8.5 L Phosphorus 4.1 Magnesium 1.3 L Total Bilirubin 1.7 H AST 33 ALT 19 Alkaline Phosphatase 32 L Troponin I Total Protein 2.7 L Albumin 0.9 L Lipase Urine Color Urine Appearance Urine pH Ur Specific Ortley Urine Protein Urine Glucose (UA) Urine Ketones Urine Blood Urine Nitrite Urine Bilirubin Urine Urobilinogen Ur Leukocyte Esterase Urine RBC Urine WBC Ur Epithelial Cells Amorphous Urates Hyaline Casts Blood Type Antibody Screen Sinus tachycardia Echo: Pending Imaging - Results Chest X-ray: Report Reviewed (Decreased bibasilar changes) Cat Scan: Report Reviewed (Abd/pelvic CT pneumoperitoneum) EKG: Report Reviewed Problem List - Problems (1) PSVT (paroxysmal supraventricular tachycardia) Code(s): I47.1 - SUPRAVENTRICULAR TACHYCARDIA (2) Sinus tachycardia Code(s): R00.0 - TACHYCARDIA, UNSPECIFIED (3) Appendix perforation Code(s): K35.32 - ACUTE APPENDICITIS WITH PERF AND LOC PERITONITIS, W/O ABSCS (4) Bowel obstruction Code(s): K56.609 - UNSP INTESTNL OBST, UNSP TO PARTIAL VERSUS COMPLETE OBST Qualifiers: Intestinal obstruction type: other intestinal obstruction (5) Bowel perforation Code(s): K63.1 - PERFORATION OF INTESTINE (NONTRAUMATIC) (6) Cerebral palsy Code(s): G80.9 - CEREBRAL PALSY, UNSPECIFIED (7) Renal failure Code(s): N19 - UNSPECIFIED KIDNEY FAILURE Qualifiers: Renal failure chronicity: acute (8) Sepsis Code(s): A41.9 - SEPSIS, UNSPECIFIED ORGANISM Assessment/Plan 1. Pneumoperitoneum due to bowel perforation and underlying SBO s/p exp lap and repair 2. Sinus tachycardia and intermittent PSVT 3. Leukocytosis 4. Hypokalemia 5. Underlying cerebral palsy PLAN: 1. May give IV Lopressor for PSVT and then PO Lopressor when oral intake is restored 2. Echocardiography to assess LV/RV and valvular function 3. Broad spectrum antibiotic post operatively 4. Surgical follow up and continue with wound care 5. K supplement Further plans are to follow Jet Blank MD
[2018-10-12] MEDS ORDERED: METOPROLOL TARTRATE 5 MG/5 ML VIAL IVPUSH PRN ×3 (11:28→12:39)
--- NOTE | 2018-10-12 11:41 | PN ---
Teaching Attending Note Name of Resident: Briseida Lema ATTENDING PHYSICIAN STATEMENT I saw and evaluated the patient. I reviewed the resident's note and discussed the case with the resident. I agree with the resident's findings and plan as documented. SUBJECTIVE: Pt seen and examined in the ICU. s/p ex-lap/ileocecectomy/ileocolic anastamosis. Awake, following commands. Tolerated CPAP/PS trials with good RSBI and subsequently extubated. OBJECTIVE: Vital Signs Period Temp Pulse Resp BP Sys/Osorio Pulse Ox Last 24 Hr 97. F-100.9 F 92-115 10-38 84-131/60-87 92-98 Intake & Output 10/09/18 10/10/18 10/11/18 10/12/18 23:59 23:59 23:59 23:59 Intake Total 9800 1620 Output Total 2480 950 Balance 7320 670 Weight 92.442 kg Gen: extubated Heart: RRR Lung: decreased breath sounds at the bases Abd: soft, nontender, dressings dry Ext: no edema CBC, BMP 10/12/18 05:30 10/12/18 05:30 Active Medications Acetaminophen (Ofirmev Injection -) 1,000 mg IVPB Q6H PRN PRN Reason: PAIN LEVEL 7 - 10 Last Admin: 10/12/18 06:27 Dose: 1,000 mg Chlorhexidine Gluconate (Hibiclens For Decolonization -) 1 applic TP HS LYNNE Last Admin: 10/11/18 21:10 Dose: 1 applic Fentanyl 500 mcg/ Dextrose 100 mls @ 10 mls/hr IVPB TITR LYNNE; Protocol Last Titration: 10/12/18 10:17 Dose: 0 mcg/hr, 0 mls/hr Propofol (Diprivan -) 1,000,000 mcg in 100 mls @ 2.517 mls/hr IVPB TITR LYNNE; Protocol Last Titration: 10/12/18 08:35 Dose: 0 mcg/kg/min, 0 mls/hr Piperacillin Sod/Tazobactam (Sod 2.25 gm/ Dextrose) 50 mls @ 100 mls/hr IVPB Q6H-IV LYNNE; Protocol Last Admin: 10/12/18 09:35 Dose: 100 mls/hr Sodium Chloride (Normal Saline -) 1,000 mls @ 100 mls/hr IV ASDIR LYNNE Last Admin: 10/12/18 03:31 Dose: 100 mls/hr Metoprolol Tartrate (Lopressor Injection -) 5 mg IVPUSH Q4H PRN PRN Reason: HYPERTENSION Midazolam HCl (Versed -) 5 mg IVPUSH ONCE PRN PRN Reason: AGITATION Stop: 10/12/18 18:52 Midazolam HCl (Versed -) 2 mg IVPUSH ONCE PRN PRN Reason: ANXIETY Stop: 10/12/18 22:29 Mupirocin (Bactroban Ointment (For Decolonization) -) 1 applic NS BID [facility] Stop: 10/16/18 21:59 Last Admin: 10/12/18 10:16 Dose: 1 applic Pantoprazole Sodium (Protonix Iv) 40 mg IVPUSH DAILY [facility] Last Admin: 10/12/18 10:17 Dose: 40 mg ASSESSMENT AND PLAN: Ruptured Appendicitis/Fecal Peritonitis s/p ex-lap/ileocecectomy/ileocolic anastamosis s/p Acute Respiratory Failure Severe Sepsis Acute Kidney Injury Lactic Acidosis Cerebral Palsy - pt extubated - continue antibiotics - f/u cultures - IVF resuscitation - monitor urine output, creatinine - maintain urine output >0.5cc/kg/hr - replete and monitor lytes - pain control - incentive spirometry - NPO - DVT prophylaxis - continue ICU monitoring critical care time spent in reviewing chart, evaluating patient and formulating plan 35 min
[2018-10-12] MEDS ORDERED: SODIUM CHLORIDE 1,000 ML IV STA ×2 (11:58→11:59)
--- NOTE | 2018-10-12 12:39 | PN ---
Progress Note (short form) - Note Progress Note: Anesthesia postop note 48 y/o M, s/p GA for exploratory laparotomy POD#1, vss, in icu, aaox3, no complaints. No anesthesia complications.
--- NOTE | 2018-10-12 13:43 | OP ---
DATE OF OPERATION: 10/11/2018 PREOPERATIVE DIAGNOSIS: Perforated viscus with pneumoperitoneum. POSTOPERATIVE DIAGNOSIS: Ruptured appendicitis with abscess and fecal contamination. PROCEDURE: Exploratory laparotomy, ileocecectomy inclusive of the appendix, with ileocolic stapled anastomosis. ATTENDING SURGEON: Preet Calle MD HOUSEKEEPING CLEANER: BEKAH Dee ANESTHESIOLOGIST: Manjinder Gould MD ANESTHESIA TYPE: General. ESTIMATED BLOOD LOSS: 30 mL. INTRAVENOUS FLUID ADMINISTERED: Crystalloid, 5100 mL. DRAINS POSTOPERATIVELY: Tomlinson and NG tube. BRIEF FINDINGS: Patient had a ruptured appendix localized in the right lower quadrant of the cecum causing significant inflammation and ischemia. It was ruptured at the base. There was cecal contamination. Stool and pus was recovered from the area. INDICATIONS: Patient is a 48-year-old male with cerebral palsy who presented with a week of worsening lower abdominal pain, perfuse vomiting in the emergency department. He was counseled regarding risks, benefits, and alternatives to surgical exploration once the CT scan confirmed the presence of a significant pneumoperitoneum with the high suspicion for perforated viscus and peritonitis. He signed informed consent and was taken for the procedure. DESCRIPTION OF PROCEDURE: The patient was brought to the operating room. He was placed in supine position on the operating table. Lower extremities had SCDs placed to compression. He received intravenous antibiotics in the form of 2 g of Mefoxin prior to the start of surgery. He was induced with general anesthesia, endotracheally intubated. At which point, the anterior abdominal wall was clipped, prepped, and draped in standard surgical fashion. A midline laparotomy entry was planned. It was scribed on the skin, and after a formal time-out identifying the operative site and procedure, we began with a 10-blade scalpel into the abdomen. It was used to deepen and widen through subcutaneous tissue. Bovie cautery was used to obtain hemostasis throughout the dissection down to the midline fascia and the rectus muscles. Midline fascia was opened with Bovie cautery, and then, a blunt entry was made into the abdomen. With the fingers protecting the abdominal viscera, the remainder of the incision was extended proximally and distally from the inferior and superior poles. At which point, we began first to identify what appeared to be significant dilated small bowel. It was eviscerated carefully as it was approximately 4 cm in diameter. Care was taken to dissect down into the abdomen, and a systematic exploration of the abdomen revealed that there was a normal-appearing liver and stomach without clear signs of visceral perforation. There was a sigmoid colon which appeared significantly redundant on a pedicle, but viable and non-torsed, and then, in the right lower quadrant, the cecum itself was dilated. When mobilizing the cecum immediately after opening the line of Toldt, it was clear that there was a perforated appendiceal base. There was significant contamination of stool and pus. It was suctioned from the abdomen and removed, and then, the site was irrigated. We began first by then extending the white line of Toldt dissection and medializing the right colon towards the midline. Additional packs were placed lateral to it to further lateralize the structure. A cut-point was determined in the terminal ileum, and it was stapled with a PATTI size 60-mm stapler with a blue load. This was taken, and then, LigaSure was used to take the mesentery close to the bowel wall along the cecum. A second cut-point was determined in the ascending colon on the right. It was stapled as well with a 60-mm PATTI stapler. We then began to bridge the mesenteric dissection with the LigaSure device until it met. The specimen was then passed off the field. It was clear at this point that there was a rupture at the base of the appendix, which was adherent to the cecum, and it was passed off in the specimen, and it required no marking. We then began to irrigate the area, pack the area for hemostasis. Small punctate bleeders were controlled with surgical ties and Bovie cautery. Once complete, we proceeded then with a fashioned anastomosis of the ascending colon and the terminal ileum. They were approximated using 0 silk. Once approximated, enterotomy and colotomy were made, appropriately controlled, for contamination. Additional attempt was made to decompress the small intestine through this enterotomy and suction it clear, milking back the apparent fluid and air burden in the small intestine until it could be easily reduced into the abdomen. Once complete, the enterotomy was controlled, and a TA stapler size 60-mm with a blue load was also used to close the final common lumen stapled anastomosis. Once complete, the viscera was returned to the abdomen, re-explored. Finding no additional pathology, the abdomen was irrigated with 2 L of sterile irrigation fluid, and the patient then had the abdomen closed. Closure was carried through from the superior and inferior poles using No. 1 looped PDS in running fashion and tied in the center. At which point, the decision was made to leave the skin agape. Shira were placed at the umbilicus as well as a small portion to reduce the amount of scar. This was packed with Iodoform and then dressed with gauze sponges and ABD pads. The skin was cleaned, sterile dressings were placed. The patient was awoken from general anesthesia having tolerated the procedure well. He was kept intubated and returned to ICU. MD JOE Thompson/[id number]
--- NOTE | 2018-10-12 14:38 | EKG ---
Test Reason : Blood Pressure : / mmHG Vent. Rate : 137 BPM Atrial Rate : 136 BPM P-R Int : 000 ms QRS Dur : 088 ms QT Int : 308 ms P-R-T Axes : 000 007 -28 degrees QTc Int : 465 ms ATRIAL FIBRILLATION WITH RAPID VENTRICULAR RESPONSE NONSPECIFIC ST AND T WAVE ABNORMALITY ABNORMAL ECG Confirmed by Gino Martinez MD ([id number]) on 10/12/2018 2:37:54 PM Referred By: Everette BISHOP Confirmed By:Gino Martinez MD
--- NOTE | 2018-10-12 14:43 | ECHO ---
Name: GETACHEW GARCIA Exam:Adult Echocardiogram Study Date: 10/12/2018 01:07 PM Age: 48 yrs Height: 68 in Weight: 203 lb BSA: 2.1 m2 MMode/2D Measurements & Calculations IVSd: 0.98 cm Ao root diam: 2.8 cm LVIDd: 4.6 cm LA dimension: 4.4 cm LVIDs: 3.2 cm LVPWd: 0.76 cm EDV(Teich): 96.6 ml LVOT diam: 2.3 cm ESV(Teich): 41.4 ml TAPSE: 2.8 cm Doppler Measurements & Calculations MV E max joshua: 58.1 cm/sec Ao V2 max: 107.0 cm/sec MV A max joshua: 29.1 cm/sec Ao max P.6 mmHg MV E/A: 2.0 Ao V2 mean: 71.9 cm/sec MV dec time: 0.14 sec Ao mean P.6 mmHg Ao V2 VTI: 15.7 cm JAXON(I,D): 3.1 cm2 JAXON(V,D): 3.1 cm2 LV V1 max P.6 mmHg MR max joshua: 400.7 cm/sec LV V1 mean P.6 mmHg MR max P.2 mmHg LV V1 max: 80.5 cm/sec LV V1 mean: 59.9 cm/sec LV V1 VTI: 11.8 cm SV(LVOT): 47.9 ml TR max joshua: 215.6 cm/sec TR max P.6 mmHg Med Peak E' Joshua: 7.8 cm/sec Med E/e': 7.5 Lat Peak E' Joshua: 15.7 cm/sec Lat E/e': 3.7 Procedure A complete two-dimensional transthoracic echocardiogram was performed (2D, M-mode, Doppler and color flow Doppler). The patient was in a tachycardic rhythm during the exam. Left Ventricle The left ventricular size, thickness and function are normal. Ejection Fraction = 60%. The transmitra l spectral Doppler flow pattern is suggestive of impaired LV relaxation. The left ventricular wall michelle on is normal. Right Ventricle The right ventricle is normal in size and function. Atria The left atrium is mildly dilated. Right atrial size is normal. Mitral Valve The mitral valve is normal in structure and function. There is mild mitral regurgitation. Tricuspid Valve The tricuspid valve is normal in structure and function. There is trace tricuspid regurgitation. Righ t ventricular systolic pressure is 24 mmhg. Aortic Valve The aortic valve is normal in structure and function. Pulmonic Valve The pulmonic valve is normal in structure and function. Trace pulmonic valvular regurgitation. Great Vessels The aortic root is normal size. Pericardium/Pleura There is no pericardial effusion. There is no pleural effusion. Interpretation Summary The patient was in a tachycardic rhythm during the exam. The left ventricular size, thickness and function are normal Ejection Fraction = 60%. The right ventricle is normal in size and function. The left atrium is mildly dilated. There is mild mitral regurgitation. There is trace tricuspid regurgitation. Right ventricular systolic pressure is 24 mmhg. Trace pulmonic valvular regurgitation. MD Gino Martinez 10/12/2018 02:43 PM
[2018-10-12] MEDS: HEPARIN NA (PORCINE) 5,000 UNITS/ML 1ML VIAL SQ SCH ×2 (14:52→21:44)
--- NOTE | 2018-10-12 17:01 | CON.ID ---
Consult Consult Specialty:: infectious diseases Referred by:: Reason for Consultation:: perforated appendix,leukocytosis - History of Present Illness Chief Complaint: abd pain History of Present Illness: 48 yo male PMH CP here with his mother c/o abd pain n/v. states abd pain started one week ago. initially with mild discomfort and nausea, over the last 2 days pain has progressed to vomiting . pt has threw up today too many times to count. emesis is coffee grounds. abdominal distension and pain. mostly right sided. no h/o prior abdominal surgery. also c/o constipation. patient was started on amoxicillin and zofran by doctor few days ago for possible strept throat. had sick contact of nephew who had strept throat. no urinary complaints. does feel generalized weakness and lightheaded. denies vertigo. we were called after the CT scan resulted to assess. the above was the history of the patient on admission. patient was then seen by surgery and worked up and found to ahve ruptured appendicitis and was taken to the operating room patient underwent exploratory laparotomy, ileocecetomy, with ileocolic stapled anastomosis and findings were ruptured appendix with abscess and fecal contamination of RLQ. post op patient was extubated and has been stable patient has been on zosyn now patients wbc has jumped up a lot clinically patient is on the face mask and his mother is in the room,his vitals are stable patient spiked fever and has been tachy with svt at times - History Source History Provided By: Patient, Family Member Limitations to Obtaining History: No Limitations - Past Medical History [employer]: Yes: Other (Cerebral Palsy) - Past Surgical History Additional Surgical History: Surgery on his lower extemity in the past - Alcohol/Substance Use Hx Alcohol Use: No History of Substance Use: reports: None - Smoking History Smoking history: Never smoked Have you smoked in the past 12 months: No - Social History Usual Living Arrangement: Alone History of Recent Travel: No Home Medications - Allergies Allergies/Adverse Reactions: Allergies Allergy/AdvReac Type Severity Reaction Status Date / Time No Known Allergies Allergy Verified 10/11/18 09:44 - Home Medications Home Medications: Ambulatory Orders Amoxicillin - [Amoxicillin 500mg Capsule -] 500 mg PO BID 10/11/18 Ondansetron HCl [Zofran] 4 mg PO TID PRN 10/11/18 Review of Systems - Review of Systems Constitutional: reports: Fever Eyes: reports: No Symptoms HENT: reports: No Symptoms Neck: reports: No Symptoms Cardiovascular: reports: No Symptoms Respiratory: reports: No Symptoms Gastrointestinal: reports: Abdominal Pain Musculoskeletal: reports: No Symptoms Integumentary: reports: No Symptoms Neurological: reports: No Symptoms Endocrine: reports: No Symptoms Hematology/Lymphatic: reports: No Symptoms Psychiatric: reports: No Symptoms Physical Exam Vital Signs: Vital Signs Temperature 100.3 F H 10/12/18 05:00 Pulse Rate 93 H 10/12/18 16:00 Respiratory Rate 24 H 10/12/18 16:00 Blood Pressure 108/63 10/12/18 16:00 O2 Sat by Pulse Oximetry (%) 95 10/12/18 14:11 Constitutional: Yes: Well Nourished, Calm, Mild Distress Eyes: Yes: Conjunctiva Clear HENT: Yes: Atraumatic, Normocephalic Neck: Yes: Supple, Trachea Midline Cardiovascular: Yes: Regular Rate and Rhythm Respiratory: Yes: Regular, Poor Air Entry Gastrointestinal: Yes: Other (absent bowel sounds,ng tube in place) Musculoskeletal: Yes: WNL Extremities: Yes: WNL Wound/Incision: Yes: Dressing Dry and Intact Neurological: Yes: Alert, Oriented Psychiatric: Yes: Alert, Oriented Labs: CBC, BMP 10/12/18 05:30 Imaging - Results Chest X-ray: Report Reviewed, Image Reviewed Cat Scan: Report Reviewed, Image Reviewed Assessment/Plan Problem List - Problems (1) Bowel perforation Code(s): K63.1 - PERFORATION OF INTESTINE (NONTRAUMATIC) (2) Cerebral palsy Code(s): G80.9 - CEREBRAL PALSY, UNSPECIFIED (3) Bowel obstruction Code(s): K56.609 - UNSP INTESTNL OBST, UNSP TO PARTIAL VERSUS COMPLETE OBST (4) Renal failure Code(s): N19 - UNSPECIFIED KIDNEY FAILURE (5) Sepsis Code(s): A41.9 - SEPSIS, UNSPECIFIED ORGANISM 6 leukocytosis Ruptured Appendicitis/Fecal Peritonitis s/p ex-lap/ileocecectomy/ileocolic anastamosis s/p Acute Respiratory Failure Severe Sepsis Acute Kidney Injury Lactic Acidosis Cerebral Palsy plan repeat a ct scan of the belly continue abx monitor wbc hydration close watch rest as per icu cc 40 min
--- NOTE | 2018-10-12 17:22 | PN ---
Progress Note, Physician History of Present Illness: comfortable - Current Medication List Current Medications: Active Medications Acetaminophen (Ofirmev Injection -) 1,000 mg IVPB Q6H PRN PRN Reason: PAIN LEVEL 7 - 10 Last Admin: 10/12/18 06:27 Dose: 1,000 mg Chlorhexidine Gluconate (Hibiclens For Decolonization -) [address] [facility] Last Admin: 10/11/18 21:10 Dose: 1 applic Heparin Sodium (Porcine) (Heparin -) 5,000 unit SQ TID [facility] Last Admin: 10/12/18 14:52 Dose: 5,000 unit Piperacillin Sod/Tazobactam (Sod 2.25 gm/ Dextrose) 50 mls @ 100 mls/hr IVPB Q6H-IV [facility]; Protocol Last Admin: 10/12/18 14:52 Dose: 100 mls/hr Sodium Chloride (Normal Saline -) 1,000 mls @ 100 mls/hr IV ASDIR [facility] Last Admin: 10/12/18 03:31 Dose: 100 mls/hr Metoprolol Tartrate (Lopressor Injection -) 5 mg IVPUSH Q4H PRN PRN Reason: HYPERTENSION Last Admin: 10/12/18 12:46 Dose: 5 mg Midazolam HCl (Versed -) 5 mg IVPUSH ONCE PRN PRN Reason: AGITATION Stop: 10/12/18 18:52 Midazolam HCl (Versed -) 2 mg IVPUSH ONCE PRN PRN Reason: ANXIETY Stop: 10/12/18 22:29 Mupirocin (Bactroban Ointment (For Decolonization) -) [address] [facility] Stop: 10/16/18 21:59 Last Admin: 10/12/18 10:16 Dose: 1 applic Pantoprazole Sodium (Protonix Iv) [address] [facility] Last Admin: 10/12/18 10:17 Dose: 40 mg - Objective Vital Signs: Vital Signs Temperature 100.3 F H 10/12/18 05:00 Pulse Rate 93 H 10/12/18 16:00 Respiratory Rate 24 H 10/12/18 16:00 Blood Pressure 108/63 10/12/18 16:00 O2 Sat by Pulse Oximetry (%) 95 10/12/18 14:11 HENT: Yes: Atraumatic Neck: Yes: Supple Cardiovascular: Yes: Regular Rate and Rhythm Respiratory: Yes: Rhonchi Gastrointestinal: Yes: Hypoactive Bowel Sounds Extremities: Yes: WNL Edema: No Neurological: Yes: Other (intubated and sedated) Labs: CBC, BMP 10/12/18 05:30 INR, PTT INR 1.29 (0.83-1.09) H 10/11/18 20:30 Problem List - Problems (1) Appendix perforation Assessment/Plan: s/p surgery iv abx ng tube Code(s): K35.32 - ACUTE APPENDICITIS WITH PERF AND LOC PERITONITIS, W/O ABSCS (2) Bowel obstruction Assessment/Plan: s/p surgery Code(s): K56.609 - UNSP INTESTNL OBST, UNSP TO PARTIAL VERSUS COMPLETE OBST Qualifiers: Intestinal obstruction type: other intestinal obstruction (3) Bowel perforation Code(s): K63.1 - PERFORATION OF INTESTINE (NONTRAUMATIC) (4) Sepsis Assessment/Plan: on abx id on board Code(s): A41.9 - SEPSIS, UNSPECIFIED ORGANISM Assessment/Plan cc time 35 min
[2018-10-12 18:08] LABS: ANION GAP 11 MMOL/L (8-16); BLOOD UREA NITROGEN 60 mg/dL (7-18); CHLORIDE 103 mmol/L (98-107); CO2 25 mmol/L (21-32); CREATININE 2.5 mg/dL (0.55-1.3); GLUCOSE,RANDOM 91 mg/dL (74-106); MAGNESIUM 3.2 mg/dL (1.8-2.4); POTASSIUM 3.6 mmol/L (3.5-5.1); SODIUM 138 mmol/L (136-145)
[2018-10-12 18:10] LABS: CALCIUM 6.9 mg/dL (8.5-10.1)
[2018-10-12 18:18] LABS: EOS % 0.1 % (0-4.5); HEMATOCRIT 36.2 % (35.4-49); HEMOGLOBIN 12.4 GM/dL (11.7-16.9); LYMPH % 3.4 % (8-40); MCH 30.8 pg (25.7-33.7); MCHC 34.2 g/dl (32.0-35.9); MEAN CELL VOLUME 89.8 fl (80-96); MEAN PLT VOLUME 9.1 fl (7.5-11.1); MONO % 2.8 % (3.8-10.2); NEUT % 93.7 % (42.8-82.8); PLATELET COUNT 263 K/MM3 (134-434); RBC 4.03 M/mm3 (4.00-5.60); RDW 14.4 % (11.9-15.9)
[2018-10-12 18:22] LABS: WHITE BLOOD COUNT 40.6 K/mm3 (4.0-10.0)
[2018-10-12 19:37] LABS: PLATELET ESTIMATE ADEQUATE
[2018-10-12] MEDS: CHLORHEXIDINE GLUCONATE 4% CLEANSER FOR DECOLONIZATION TP SCH (21:44)
[2018-10-13] MEDS ORDERED: PIPERACILLIN/TAZOBACTAM 2.25 GM VIAL IVPB ONE ×4 (02:06→21:31)
[2018-10-13] MEDS ORDERED: DEXTROSE 5%-WATER - 50 ML IVPB ONE ×4 (02:07→21:31)
[2018-10-13] MEDS: PIPERACILLIN/TAZOB 2.25 GM 2.25 GM in DEXTROSE 5%-WATER - 50 ML IVPB SCH ×4 (02:07→21:36)
[2018-10-13] MEDS: SODIUM CHLORIDE 1,000 ML IV SCH (05:09)
[2018-10-13] MEDS: HEPARIN NA (PORCINE) 5,000 UNITS/ML 1ML VIAL SQ SCH ×3 (05:09→21:37)
[2018-10-13 06:39] LABS: BASO % 0.1 % (0-2.0); EOS % 0.1 % (0-4.5); HEMATOCRIT 35.1 % (35.4-49); HEMOGLOBIN 11.9 GM/dL (11.7-16.9); MCH 30.6 pg (25.7-33.7); MCHC 33.9 g/dl (32.0-35.9); MEAN CELL VOLUME 90.3 fl (80-96); MEAN PLT VOLUME 8.9 fl (7.5-11.1); MONO % 4.3 % (3.8-10.2); NEUT % 90.5 % (42.8-82.8); PLATELET COUNT 270 K/MM3 (134-434); RBC 3.89 M/mm3 (4.00-5.60); RDW 14.6 % (11.9-15.9); WHITE BLOOD COUNT 29.6 K/mm3 (4.0-10.0)
[2018-10-13 06:42] LABS: ALBUMIN 1.4 g/dl (3.4-5.0); ALK PHOS 63 U/L (45-117); ANION GAP 7 MMOL/L (8-16); BILIRUBIN,TOTAL 2.3 mg/dL (0.2-1); BLOOD UREA NITROGEN 53 mg/dL (7-18); CALCIUM 7.3 mg/dL (8.5-10.1); CHLORIDE 102 mmol/L (98-107); CO2 29 mmol/L (21-32); CREATININE 1.7 mg/dL (0.55-1.3); GLUCOSE,RANDOM 97 mg/dL (74-106); MAGNESIUM 3.7 mg/dL (1.8-2.4); PHOSPHOROUS 3.8 mg/dL (2.5-4.9); POTASSIUM 3.8 mmol/L (3.5-5.1); SGOT/AST 67 U/L (15-37); SGPT/ALT 30 U/L (13-61); SODIUM 138 mmol/L (136-145); TOT PROT 4.6 g/dl (6.4-8.2)
--- NOTE | 2018-10-13 07:39 | PN ---
Physical Exam: SUBJECTIVE: Patient seen and examined at bedside. Pt output ~800cc from NG tube overnight. No other acute events overnight. Pt has no symptomatic complaints at this time. Seen resting comfortably on venturi mask. OBJECTIVE: Vital Signs Period Temp Pulse Resp BP Sys/Osorio Pulse Ox Last 24 Hr 98.2 F-99 F 83-161 14-26 104-133/59-95 95-98 GENERAL: Pleasant male. Awake and alert. NAD. On ventimask EYES: No pallor or icterus. EARS, NOSE, THROAT:Moist mucous membranes. NECK: No JVD. LUNGS:B/L decreased breath sounds at the bases, no added sounds. HEART: Regular rate and rhythm, normal S1 and S2 without murmur. ABDOMEN: Surgical dressing in place, c/d/i. Hypoactive bowel sounds. UPPER EXTREMITIES: No peripheral edema. LOWER EXTREMITIES: No peripheral edema. NEUROLOGICAL: Able to follow commands and communicate. SKIN: Warm, dry, normal turgor, no rashes or lesions noted. CBC, BMP 10/13/18 05:30 10/13/18 05:30 Active Medications Acetaminophen (Ofirmev Injection -) 1,000 mg IVPB Q6H PRN PRN Reason: PAIN LEVEL 7 - 10 Last Admin: 10/12/18 06:27 Dose: 1,000 mg Chlorhexidine Gluconate (Hibiclens For Decolonization -) 1 applic TP HS [facility] Last Admin: 10/12/18 21:44 Dose: 1 applic Heparin Sodium (Porcine) (Heparin -) 5,000 unit SQ TID [facility] Last Admin: 10/13/18 05:09 Dose: 5,000 unit Piperacillin Sod/Tazobactam (Sod 2.25 gm/ Dextrose) 50 mls @ 100 mls/hr IVPB Q6H-IV [facility]; Protocol Last Admin: 10/13/18 02:07 Dose: 100 mls/hr Sodium Chloride (Normal Saline -) 1,000 mls @ 100 mls/hr IV ASDIR [facility] Last Admin: 10/13/18 05:09 Dose: 100 mls/hr Metoprolol Tartrate (Lopressor Injection -) 5 mg IVPUSH Q4H PRN PRN Reason: HYPERTENSION Last Admin: 10/12/18 12:46 Dose: 5 mg Mupirocin (Bactroban Ointment (For Decolonization) -) 1 applic NS BID [facility] Stop: 10/16/18 21:59 Last Admin: 10/12/18 21:44 Dose: 1 applic Pantoprazole Sodium (Protonix Iv) 40 mg IVPUSH DAILY [facility] Last Admin: 10/12/18 10:17 Dose: 40 mg CONSULT: Surg- Dr. Calle Cardio- Dr. Mueller ID- Dr. Arroyo IMAGING: * Abd U/S (10/11/18): Limited study with sludge filled GB and air throughout biliary tree. * CTAP (10/11/18): Pneumoperitoneum indicative of bowel perf. Marked distension of stomach and proximal small bowel loops c/w high grade SBO. Suspected portal venous air. Atrophic horseshoe kidneys. * EKG (10/12/18): Afib w/ RVR, HR 137, QTc 465 ms, No ST-T changes * CTAP w/o contrast (10/12/18): Equivocal visualization of an approximate 6 x2 cm fluid collection within R lateral aspect of mid to upper pelvis vs. representing unopacified bowel. Interval development of bibasilar consolidation noted which may be on basis of atelectasis and/or infiltrates. Partial imaging of R middle lobe infiltrate/atelectasis. * Echo (10/12/18): Pt tachycardic during exam. LV size, thickness, fxn are normal. EF = 60%. RV nl in size and fxn. LA mildly dilated. Mild MR. Trace TR. RV systolic pressure 24 mmHg. Trace pulmonic valvular regurgitation. ASSESSMENT/PLAN: 48M w/ pmhx of mild CP presented with perforated viscus and pneumoperitoneum admitted to the ICU for post-op monitoring s/p ex lap, ileocecotomy, with ileocolic stapled anastomosis, POD #2 (surgery done on 10/11/18). Neuro -Extubated yesterday. Doing well on ventimask satting at 96%. Pulm -Stable. -Cont to monitor O2 sat CV #Sinus tachycardia and intermittent PSVT -Per cardio, recommend IV Lopressor 5 mg Q4H for PSVT; then may give PO Lopressor when no longer NPO -Echo noted above -cont to monitor tele for cardiac events -F/u cardio recs GI #S/p ex lap 2/2 perf viscus and pneumoperitoneum, POD #2 -Per ID, cont Zosyn 2.25 Q6H IVPB (started 10/11/18) Day 3 -NG in place, with low wall suction draining fluid; output ~800cc overnight -Tomlinson in place, monitor urinary output. -BCx neg x24h, UCx neg, Peritoneal fluid Cx neg/Gram stain and anaerobic cx pending -Await return bowel function -IS/OOB to chair/PT Renal #TITI; Cr today 1.7 - improved -cont NS @ 100 -Maintain urine output at >0.5cc/kg/hr; monitor UOP -recheck BMP #Hypokalemia; today K+ 3.8 -Replete PRN ID #Perforated viscus w/ ruptured appendix -Per ID, cont Zosyn 2.25 gm Q6H IVP -Peritoneal fluid cx, Ucx, Bcx pending -Throat cx neg Prophylaxis GI- Protonix 40 IVP QD DVT- SQH/SCDs FEN -switched to D5-1/2NS + 20 KCl mEq @ 100 -replete lytes PRN (K+) -NPO dispo -cont to monitor in ICU Visit type - Emergency Visit Emergency Visit: Yes ED Registration Date: 10/11/18 Care time: The patient presented to the Emergency Department on the above date and was hospitalized for further evaluation of their emergent condition. - New Patient This patient is new to me today: No - Critical Care Critical Care patient: Yes Total Critical Care Time (in minutes): 40 Critical Care Statement: The care of this patient involved high complexity decision making to prevent further life threatening deterioration of the patient 's condition and/or to evaluate & treat vital organ system(s) failure or risk of failure.
[2018-10-13] MEDS: KCL 10 MEQ IVPB 10 MEQ/100 ML INFUS.BAG IVPB SCH ×3 (08:37→11:24)
--- NOTE | 2018-10-13 08:46 | PN ---
Progress Note, Physician Chief Complaint: abdominal pain History of Present Illness: 48 yo male PMH CP here with his mother c/o abd pain n/v. states abd pain started one week ago. initially with mild discomfort and nausea, over the last 2 days pain has progressed to vomiting . He has been stable post operatively. - Current Medication List Current Medications: Active Medications Acetaminophen (Ofirmev Injection -) 1,000 mg IVPB Q6H PRN PRN Reason: PAIN LEVEL 7 - 10 Last Admin: 10/12/18 06:27 Dose: 1,000 mg Chlorhexidine Gluconate (Hibiclens For Decolonization -) 1 applic TP HS [facility] Last Admin: 10/12/18 21:44 Dose: 1 applic Heparin Sodium (Porcine) (Heparin -) 5,000 unit SQ TID [facility] Last Admin: 10/13/18 05:09 Dose: 5,000 unit Piperacillin Sod/Tazobactam (Sod 2.25 gm/ Dextrose) 50 mls @ 100 mls/hr IVPB Q6H-IV [facility]; Protocol Last Admin: 10/13/18 02:07 Dose: 100 mls/hr Sodium Chloride (Normal Saline -) 1,000 mls @ 100 mls/hr IV ASDIR [facility] Last Admin: 10/13/18 05:09 Dose: 100 mls/hr Potassium Chloride (Potassium Chloride 10 Meq Premix Ivpb -) 10 meq in 100 mls @ 100 mls/hr IVPB Q60M [facility] Stop: 10/13/18 11:14 Metoprolol Tartrate (Lopressor Injection -) 5 mg IVPUSH Q4H PRN PRN Reason: HYPERTENSION Last Admin: 10/12/18 12:46 Dose: 5 mg Mupirocin (Bactroban Ointment (For Decolonization) -) 1 applic NS BID [facility] Stop: 10/16/18 21:59 Last Admin: 10/12/18 21:44 Dose: 1 applic Pantoprazole Sodium (Protonix Iv) 40 mg IVPUSH DAILY [facility] Last Admin: 10/12/18 10:17 Dose: 40 mg - Objective Vital Signs: Vital Signs Temperature 98.2 F 10/13/18 06:00 Pulse Rate 90 10/13/18 06:00 Respiratory Rate 18 10/13/18 06:00 Blood Pressure 121/77 10/13/18 06:00 O2 Sat by Pulse Oximetry (%) 98 10/12/18 23:03 Constitutional: Yes: Well Nourished, No Distress, Calm Eyes: Yes: Conjunctiva Clear, EOM Intact HENT: Yes: Atraumatic, Normocephalic Neck: Yes: Supple, Trachea Midline Cardiovascular: Yes: Regular Rate and Rhythm, S1, S2 Respiratory: Yes: Regular, CTA Bilaterally Gastrointestinal: Yes: Soft, Hypoactive Bowel Sounds, Tenderness (incisional) ...Rectal Exam: Yes: Deferred Genitourinary: No: CVA Tenderness - Left, CVA Tenderness - Right Musculoskeletal: No: Muscle Pain, Muscle Weakness Extremities: No: Cool, Cyanosis Neurological: Yes: Alert, Oriented Psychiatric: Yes: Alert, Oriented Labs: CBC, BMP 10/13/18 05:30 10/13/18 05:30 INR, PTT INR 1.29 (0.83-1.09) H 10/11/18 20:30 Problem List - Problems (1) Bowel perforation Assessment/Plan: 48yo male with peritonitis and perforated viscus that will need surgical exploration POD#3 s/p Exp Lap, ileocecetomy for a ruptured appendicitis down grade at discretion of ICU team NPO and IVF hydration NGT to LCWS IV antibiotics per ID Adequate analgesia OOB aand ambulate DVT and GI prophylaxsis Code(s): K63.1 - PERFORATION OF INTESTINE (NONTRAUMATIC) (2) Cerebral palsy Code(s): G80.9 - CEREBRAL PALSY, UNSPECIFIED (3) Bowel obstruction Code(s): K56.609 - UNSP INTESTNL OBST, UNSP TO PARTIAL VERSUS COMPLETE OBST Qualifiers: Intestinal obstruction type: other intestinal obstruction (4) Renal failure Code(s): N19 - UNSPECIFIED KIDNEY FAILURE Qualifiers: Renal failure chronicity: acute (5) Sepsis Code(s): A41.9 - SEPSIS, UNSPECIFIED ORGANISM
[2018-10-13] MEDS ORDERED: MAGNESIUM SULF 50% (8.12 MEQ/2 ML-1 GM VIAL) IVPB ONE (08:58)
[2018-10-13 10:27] LABS: ANISOCYTOSIS 0; MACROCYTOSIS 0; PLATELET ESTIMATE NORMAL; TOXIC GRANULATION 1+
[2018-10-13] MEDS: PANTOPRAZOLE SODIUM 40 MG VIAL IVPUSH SCH (10:37)
[2018-10-13] MEDS: MUPIROCIN 2% TOPICAL OINTMENT FOR DECOLONIZATION NS SCH ×2 (10:44→21:38)
[2018-10-13] MEDS: D5-1/2NS+20 MEQ KCL - 20 MEQ/1,000 ML INFUS.BAG IV SCH (11:25)
--- NOTE | 2018-10-13 11:59 | PN ---
Teaching Attending Note Name of Resident: Briseida Lema ATTENDING PHYSICIAN STATEMENT I saw and evaluated the patient. I reviewed the resident's note and discussed the case with the resident. I agree with the resident's findings and plan as documented. SUBJECTIVE: Pt seen and examined in the ICU. Remains extubated. Still with NGT output. No flatus. Pain controlled. Good urine output. OBJECTIVE: Vital Signs Period Temp Pulse Resp BP Sys/Osorio Pulse Ox Last 24 Hr 98.2 F-99 F 83-144 14-26 104-126/63-95 95-98 Intake & Output 10/10/18 10/11/18 10/12/18 10/13/18 23:59 23:59 23:59 23:59 Intake Total 9800 4120 1400 Output Total 2480 2050 2800 Balance 7320 2070 -1400 Weight 92.442 kg 92.079 kg 88.768 kg Gen: NAD at rest Heart: RRR Lung: decreased breath sounds at the bases Abd: soft, dressings dry Ext: no edema CBC, BMP 10/13/18 05:30 10/13/18 05:30 Active Medications Acetaminophen (Ofirmev Injection -) 1,000 mg IVPB Q6H PRN PRN Reason: PAIN LEVEL 7 - 10 Last Admin: 10/12/18 06:27 Dose: 1,000 mg Chlorhexidine Gluconate (Hibiclens For Decolonization -) 1 applic TP HS [facility] Last Admin: 10/12/18 21:44 Dose: 1 applic Heparin Sodium (Porcine) (Heparin -) 5,000 unit SQ TID [facility] Last Admin: 10/13/18 05:09 Dose: 5,000 unit Piperacillin Sod/Tazobactam (Sod 2.25 gm/ Dextrose) 50 mls @ 100 mls/hr IVPB Q6H-IV [facility]; Protocol Last Admin: 10/13/18 09:36 Dose: 100 mls/hr Potassium Chloride/Dextrose/Sod Cl (D5-1/2ns+20 Meq Kcl -) 20 meq in 1,000 mls @ 100 mls/hr IV ASDIR [facility] Last Admin: 10/13/18 11:25 Dose: 100 mls/hr Metoprolol Tartrate (Lopressor Injection -) 5 mg IVPUSH Q4H PRN PRN Reason: HYPERTENSION Last Admin: 10/12/18 12:46 Dose: 5 mg Mupirocin (Bactroban Ointment (For Decolonization) -) 1 applic NS BID [facility] Stop: 10/16/18 21:59 Last Admin: 10/13/18 10:44 Dose: 1 applic Pantoprazole Sodium (Protonix Iv) 40 mg IVPUSH DAILY [facility] Last Admin: 10/13/18 10:37 Dose: 40 mg ASSESSMENT AND PLAN: Ruptured Appendicitis/Fecal Peritonitis s/p ex-lap/ileocecectomy/ileocolic anastamosis s/p Acute Respiratory Failure Severe Sepsis Acute Kidney Injury Lactic Acidosis Cerebral Palsy - continue antibiotics - f/u cultures - IVF - monitor urine output, creatinine - maintain urine output >0.5cc/kg/hr - replete and monitor lytes - pain control - incentive spirometry - await return of bowel function - DVT prophylaxis - continue ICU monitoring critical care time spent in reviewing chart, evaluating patient and formulating plan 35 min
--- NOTE | 2018-10-13 15:19 | PN ---
Progress Note, Physician - Current Medication List Current Medications: Active Medications Acetaminophen (Ofirmev Injection -) 1,000 mg IVPB Q6H PRN PRN Reason: PAIN LEVEL 7 - 10 Last Admin: 10/12/18 06:27 Dose: 1,000 mg Chlorhexidine Gluconate (Hibiclens For Decolonization -) 1 applic TP HS [facility] Last Admin: 10/12/18 21:44 Dose: 1 applic Heparin Sodium (Porcine) (Heparin -) 5,000 unit SQ TID [facility] Last Admin: 10/13/18 14:13 Dose: 5,000 unit Piperacillin Sod/Tazobactam (Sod 2.25 gm/ Dextrose) 50 mls @ 100 mls/hr IVPB Q6H-IV [facility]; Protocol Last Admin: 10/13/18 14:13 Dose: 100 mls/hr Potassium Chloride/Dextrose/Sod Cl (D5-1/2ns+20 Meq Kcl -) 20 meq in 1,000 mls @ 100 mls/hr IV ASDIR [facility] Last Admin: 10/13/18 11:25 Dose: 100 mls/hr Metoprolol Tartrate (Lopressor Injection -) 5 mg IVPUSH Q4H PRN PRN Reason: HYPERTENSION Last Admin: 10/12/18 12:46 Dose: 5 mg Mupirocin (Bactroban Ointment (For Decolonization) -) 1 applic NS BID [facility] Stop: 10/16/18 21:59 Last Admin: 10/13/18 10:44 Dose: 1 applic Pantoprazole Sodium (Protonix Iv) 40 mg IVPUSH DAILY [facility] Last Admin: 10/13/18 10:37 Dose: 40 mg - Objective Vital Signs: Vital Signs Temperature 98.1 F 10/13/18 14:00 Pulse Rate 102 H 10/13/18 14:00 Respiratory Rate 21 H 10/13/18 14:00 Blood Pressure 137/85 10/13/18 14:00 O2 Sat by Pulse Oximetry (%) 95 10/13/18 10:00 Labs: CBC, BMP 10/13/18 05:30 10/13/18 05:30 INR, PTT INR 1.29 (0.83-1.09) H 10/11/18 20:30
--- NOTE | 2018-10-13 18:44 | PN ---
Progress Note, Physician History of Present Illness: comfortable - Current Medication List Current Medications: Active Medications Acetaminophen (Ofirmev Injection -) 1,000 mg IVPB Q6H PRN PRN Reason: PAIN LEVEL 7 - 10 Last Admin: 10/12/18 06:27 Dose: 1,000 mg Chlorhexidine Gluconate (Hibiclens For Decolonization -) 1 applic TP HS [facility] Last Admin: 10/12/18 21:44 Dose: 1 applic Heparin Sodium (Porcine) (Heparin -) 5,000 unit SQ TID [facility] Last Admin: 10/13/18 14:13 Dose: 5,000 unit Piperacillin Sod/Tazobactam (Sod 2.25 gm/ Dextrose) 50 mls @ 100 mls/hr IVPB Q6H-IV [facility]; Protocol Last Admin: 10/13/18 14:13 Dose: 100 mls/hr Potassium Chloride/Dextrose/Sod Cl (D5-1/2ns+20 Meq Kcl -) 20 meq in 1,000 mls @ 100 mls/hr IV ASDIR [facility] Last Admin: 10/13/18 11:25 Dose: 100 mls/hr Metoprolol Tartrate (Lopressor Injection -) 5 mg IVPUSH Q4H PRN PRN Reason: HYPERTENSION Last Admin: 10/12/18 12:46 Dose: 5 mg Mupirocin (Bactroban Ointment (For Decolonization) -) 1 applic NS BID [facility] Stop: 10/16/18 21:59 Last Admin: 10/13/18 10:44 Dose: 1 applic Pantoprazole Sodium (Protonix Iv) 40 mg IVPUSH DAILY [facility] Last Admin: 10/13/18 10:37 Dose: 40 mg - Objective Vital Signs: Vital Signs Temperature 99.1 F 10/13/18 18:00 Pulse Rate 99 H 10/13/18 18:00 Respiratory Rate 21 H 10/13/18 18:00 Blood Pressure 130/71 10/13/18 18:00 O2 Sat by Pulse Oximetry (%) 95 10/13/18 10:00 Constitutional: Yes: No Distress HENT: Yes: Atraumatic Neck: Yes: Supple Cardiovascular: Yes: Regular Rate and Rhythm Respiratory: Yes: CTA Bilaterally Gastrointestinal: Yes: Normal Bowel Sounds, Tenderness Extremities: Yes: WNL Edema: No Neurological: Yes: Alert, Oriented Labs: CBC, BMP 10/13/18 05:30 10/13/18 05:30 INR, PTT INR 1.29 (0.83-1.09) H 10/11/18 20:30 Problem List - Problems (1) Appendix perforation Assessment/Plan: s/p surgery iv abx prn pain meds Code(s): K35.32 - ACUTE APPENDICITIS WITH PERF AND LOC PERITONITIS, W/O ABSCS (2) Bowel obstruction Assessment/Plan: s/p surgery Code(s): K56.609 - UNSP INTESTNL OBST, UNSP TO PARTIAL VERSUS COMPLETE OBST Qualifiers: Intestinal obstruction type: other intestinal obstruction (3) Bowel perforation Code(s): K63.1 - PERFORATION OF INTESTINE (NONTRAUMATIC) (4) Sepsis Assessment/Plan: on abx id on board Code(s): A41.9 - SEPSIS, UNSPECIFIED ORGANISM Assessment/Plan DIAGNOSES Ruptured Appendicitis/Fecal Peritonitis s/p ex-lap/ileocecectomy/ileocolic anastamosis s/p Acute Respiratory Failure Severe Sepsis Acute Kidney Injury Lactic Acidosis Cerebral Palsy - cc time 35 min
--- NOTE | 2018-10-13 19:00 | PN ---
Progress Note, Physician History of Present Illness: Remains in SR, afebrile, no flatus yet. - Current Medication List Current Medications: Active Medications Acetaminophen (Ofirmev Injection -) 1,000 mg IVPB Q6H PRN PRN Reason: PAIN LEVEL 7 - 10 Last Admin: 10/12/18 06:27 Dose: 1,000 mg Chlorhexidine Gluconate (Hibiclens For Decolonization -) 1 applic TP HS [facility] Last Admin: 10/12/18 21:44 Dose: 1 applic Heparin Sodium (Porcine) (Heparin -) 5,000 unit SQ TID [facility] Last Admin: 10/13/18 14:13 Dose: 5,000 unit Piperacillin Sod/Tazobactam (Sod 2.25 gm/ Dextrose) 50 mls @ 100 mls/hr IVPB Q6H-IV [facility]; Protocol Last Admin: 10/13/18 14:13 Dose: 100 mls/hr Potassium Chloride/Dextrose/Sod Cl (D5-1/2ns+20 Meq Kcl -) 20 meq in 1,000 mls @ 100 mls/hr IV ASDIR [facility] Last Admin: 10/13/18 11:25 Dose: 100 mls/hr Metoprolol Tartrate (Lopressor Injection -) 5 mg IVPUSH Q4H PRN PRN Reason: HYPERTENSION Last Admin: 10/12/18 12:46 Dose: 5 mg Mupirocin (Bactroban Ointment (For Decolonization) -) 1 applic NS BID [facility] Stop: 10/16/18 21:59 Last Admin: 10/13/18 10:44 Dose: 1 applic Pantoprazole Sodium (Protonix Iv) 40 mg IVPUSH DAILY [facility] Last Admin: 10/13/18 10:37 Dose: 40 mg - Objective Vital Signs: Vital Signs Temperature 99.1 F 10/13/18 18:00 Pulse Rate 99 H 10/13/18 18:00 Respiratory Rate 21 H 10/13/18 18:00 Blood Pressure 130/71 10/13/18 18:00 O2 Sat by Pulse Oximetry (%) 95 10/13/18 10:00 Constitutional: Yes: No Distress, Calm Neck: Yes: Supple Cardiovascular: Yes: Regular Rate and Rhythm Respiratory: Yes: Regular, Diminished, On Nasal O2 Gastrointestinal: Yes: Soft, Hypoactive Bowel Sounds Edema: No Labs: CBC, BMP 10/13/18 05:30 10/13/18 05:30 INR, PTT INR 1.29 (0.83-1.09) H 10/11/18 20:30 - ....Imaging EKG: Report Reviewed (Afib @ 137) Problem List - Problems (1) Paroxysmal atrial fibrillation with rapid ventricular response Code(s): I48.0 - PAROXYSMAL ATRIAL FIBRILLATION (2) Appendix perforation Code(s): K35.32 - ACUTE APPENDICITIS WITH PERF AND LOC PERITONITIS, W/O ABSCS (3) Bowel perforation Code(s): K63.1 - PERFORATION OF INTESTINE (NONTRAUMATIC) (4) Cerebral palsy Code(s): G80.9 - CEREBRAL PALSY, UNSPECIFIED (5) PSVT (paroxysmal supraventricular tachycardia) Code(s): I47.1 - SUPRAVENTRICULAR TACHYCARDIA (6) Sepsis Code(s): A41.9 - SEPSIS, UNSPECIFIED ORGANISM (7) Acute kidney injury Code(s): N17.9 - ACUTE KIDNEY FAILURE, UNSPECIFIED Assessment/Plan 10/12/2018 Normal biventricular size and fxn, mild MR, tr MD 1. Pneumoperitoneum due to bowel perforation/fecal peritonitis and SBO POD#2 s/ p Exp Lap, ileocecetomy for a ruptured appendicitis 2. PAF, PSVT->SR 3. Leukocytosis 4. Hypokalemia 5. Underlying cerebral palsy 6. s/p acute respiratory failure 7. TITI due to sepsis resolving PLAN: 1. May give IV Lopressor for PSVT/PAF and then PO Lopressor when oral intake is restored 2. Broad spectrum antibiotic post operatively 3. Surgical follow up and continue with wound care 4. K supplement, DVT and GI prophylaxis
[2018-10-13] MEDS: CHLORHEXIDINE GLUCONATE 4% CLEANSER FOR DECOLONIZATION TP SCH (21:37)
[2018-10-14] MEDS ORDERED: PIPERACILLIN/TAZOBACTAM 2.25 GM VIAL IVPB ONE ×4 (02:24→21:18)
[2018-10-14] MEDS ORDERED: DEXTROSE 5%-WATER - 50 ML IVPB ONE ×4 (02:25→21:18)
[2018-10-14] MEDS: PIPERACILLIN/TAZOB 2.25 GM 2.25 GM in DEXTROSE 5%-WATER - 50 ML IVPB SCH ×4 (02:25→21:42)
[2018-10-14] MEDS: HEPARIN NA (PORCINE) 5,000 UNITS/ML 1ML VIAL SQ SCH ×3 (05:09→21:42)
--- NOTE | 2018-10-14 08:05 | PN ---
Physical Exam: SUBJECTIVE: Patient seen and examined at bedside. Awake and alert. Expresses that he would like to eat, but understands that he cannot do so until cleared. Denies naqvi/d, f/c, n/v, cp, sob, abd pain. No flatus. NG tube still draining fluid. OBJECTIVE: Vital Signs Period Temp Pulse Resp BP Sys/Osorio Pulse Ox Last 24 Hr 98 F-99.1 F 84-104 20-24 113-137/64-85 95-95 GENERAL: Pleasant male. Awake and alert. NAD. On NC. EYES: No pallor or icterus. EARS, NOSE, THROAT:Moist mucous membranes. NG tube in place draining brown fluid. NECK: No JVD. LUNGS:B/L decreased breath sounds at the bases, no added sounds. HEART: Regular rate and rhythm, normal S1 and S2 without murmur. ABDOMEN: Surgical dressing in place, c/d/i. Hypoactive bowel sounds. : Tomlinson in place draining clear yellow urine. UPPER EXTREMITIES: No peripheral edema. LOWER EXTREMITIES: No peripheral edema. NEUROLOGICAL: Able to follow commands and communicate. SKIN: Warm, dry, normal turgor, no rashes or lesions noted. Laboratory Results - last 24 hr 10/13/18 05:30 Neutrophils % (Manual) 81.0 D Band Neutrophils % 7.0 Lymphocytes % (Manual) 2.0 L D Monocytes % (Manual) 5 Eosinophils % (Manual) 0.0 Basophils % (Manual) 0.0 Myelocytes % (Man) 3 H D Promyelocytes % (Man) 0 Blast Cells % (Manual) 0 Metamyelocytes 1 Hypochromia 0 Toxic Granulation 1+ Platelet Estimate Normal Polychromasia 0 Poikilocytosis 0 Anisocytosis 0 Microcytosis 0 Macrocytosis 0 Active Medications Acetaminophen (Ofirmev Injection -) 1,000 mg IVPB Q6H PRN PRN Reason: PAIN LEVEL 7 - 10 Last Admin: 10/12/18 06:27 Dose: 1,000 mg Chlorhexidine Gluconate (Hibiclens For Decolonization -) 1 applic TP HS [facility] Last Admin: 10/13/18 21:37 Dose: 1 applic Heparin Sodium (Porcine) (Heparin -) 5,000 unit SQ TID [facility] Last Admin: 10/14/18 05:09 Dose: 5,000 unit Piperacillin Sod/Tazobactam (Sod 2.25 gm/ Dextrose) 50 mls @ 100 mls/hr IVPB Q6H-IV [facility]; Protocol Last Admin: 10/14/18 02:25 Dose: 100 mls/hr Potassium Chloride/Dextrose/Sod Cl (D5-1/2ns+20 Meq Kcl -) 20 meq in 1,000 mls @ 100 mls/hr IV ASDIR [facility] Last Admin: 10/13/18 11:25 Dose: 100 mls/hr Metoprolol Tartrate (Lopressor Injection -) 5 mg IVPUSH Q4H PRN PRN Reason: HYPERTENSION Last Admin: 10/12/18 12:46 Dose: 5 mg Mupirocin (Bactroban Ointment (For Decolonization) -) 1 applic NS BID [facility] Stop: 10/16/18 21:59 Last Admin: 10/13/18 21:38 Dose: 1 applic Pantoprazole Sodium (Protonix Iv) 40 mg IVPUSH DAILY [facility] Last Admin: 10/13/18 10:37 Dose: 40 mg CONSULT: Surg- Dr. Calle Cardio- Dr. Mueller ID- Dr. Arroyo IMAGING: * Abd U/S (10/11/18): Limited study with sludge filled GB and air throughout biliary tree. * CTAP (10/11/18): Pneumoperitoneum indicative of bowel perf. Marked distension of stomach and proximal small bowel loops c/w high grade SBO. Suspected portal venous air. Atrophic horseshoe kidneys. * EKG (10/12/18): Afib w/ RVR, HR 137, QTc 465 ms, No ST-T changes * CTAP w/o contrast (10/12/18): Equivocal visualization of an approximate 6 x2 cm fluid collection within R lateral aspect of mid to upper pelvis vs. representing unopacified bowel. Interval development of bibasilar consolidation noted which may be on basis of atelectasis and/or infiltrates. Partial imaging of R middle lobe infiltrate/atelectasis. * Echo (10/12/18): Pt tachycardic during exam. LV size, thickness, fxn are normal. EF = 60%. RV nl in size and fxn. LA mildly dilated. Mild MR. Trace TR. RV systolic pressure 24 mmHg. Trace pulmonic valvular regurgitation. ASSESSMENT/PLAN: 48M w/ pmhx of mild CP presented with perforated viscus and pneumoperitoneum admitted to the ICU for post-op monitoring s/p ex lap, ileocecotomy, with ileocolic stapled anastomosis, POD #3 (surgery done on 10/11/18). Neuro -Extubated yesterday. Doing well on NC satting at 96%. Pulm -Stable. -Cont to monitor O2 sat CV #Sinus tachycardia and intermittent PSVT -Per cardio, recommend IV Lopressor 5 mg Q4H for PSVT; then may give PO Lopressor when no longer NPO -Echo noted above -cont to monitor tele for cardiac events -F/u cardio recs GI #S/p ex lap 2/2 perf viscus and pneumoperitoneum, POD #3 -Per ID, cont Zosyn 2.25 Q6H IVPB (started 10/11/18) Day 4 -NG in place, with low wall suction draining fluid; output ~800cc overnight -Tomlinson in place, monitor urinary output. -BCx neg x72h, UCx neg, Peritoneal fluid Cx neg/Gram stain and anaerobic cx pending -Await return bowel function -IS/OOB to chair/PT Renal #TITI; Cr today 1.0 - improved -cont D5-1/2NS @ 100 -Maintain urine output at >0.5cc/kg/hr; monitor UOP -recheck BMP #Hypokalemia; today K+ 3.8 -Replete PRN ID #Perforated viscus w/ ruptured appendix -Per ID, cont Zosyn 2.25 gm Q6H IVP -Peritoneal fluid cx, Ucx, Bcx pending -Throat cx neg Prophylaxis GI- Protonix 40 IVP QD DVT- SQH/SCDs FEN -switched to D5-1/2NS + 20 KCl mEq @ 100 -replete lytes PRN (K+) -NPO dispo -cont to monitor in ICU Visit type - Emergency Visit Emergency Visit: Yes ED Registration Date: 10/11/18 Care time: The patient presented to the Emergency Department on the above date and was hospitalized for further evaluation of their emergent condition. - New Patient This patient is new to me today: No - Critical Care Critical Care patient: Yes Total Critical Care Time (in minutes): 40 Critical Care Statement: The care of this patient involved high complexity decision making to prevent further life threatening deterioration of the patient 's condition and/or to evaluate & treat vital organ system(s) failure or risk of failure.
[2018-10-14] MEDS: PANTOPRAZOLE SODIUM 40 MG VIAL IVPUSH SCH (09:25)
[2018-10-14] MEDS: MUPIROCIN 2% TOPICAL OINTMENT FOR DECOLONIZATION NS SCH ×2 (09:25→21:42)
[2018-10-14 09:50] LABS: HEMATOCRIT 32.9 % (35.4-49); HEMOGLOBIN 11.5 GM/dL (11.7-16.9); MCH 31.5 pg (25.7-33.7); MEAN PLT VOLUME 9.4 fl (7.5-11.1); PLATELET COUNT 267 K/MM3 (134-434); RBC 3.66 M/mm3 (4.00-5.60); RDW 14.5 % (11.9-15.9); WHITE BLOOD COUNT 22.1 K/mm3 (4.0-10.0)
[2018-10-14 10:34] LABS: ALBUMIN 1.5 g/dl (3.4-5.0); ALK PHOS 59 U/L (45-117); ANION GAP 6 MMOL/L (8-16); BILIRUBIN,TOTAL 1.5 mg/dL (0.2-1); BLOOD UREA NITROGEN 33 mg/dL (7-18); CALCIUM 7.3 mg/dL (8.5-10.1); CHLORIDE 107 mmol/L (98-107); CO2 27 mmol/L (21-32); GLUCOSE,RANDOM 101 mg/dL (74-106); MAGNESIUM 3.2 mg/dL (1.8-2.4); PHOSPHOROUS 2.3 mg/dL (2.5-4.9); POTASSIUM 3.8 mmol/L (3.5-5.1); SGOT/AST 46 U/L (15-37); SGPT/ALT 24 U/L (13-61); SODIUM 141 mmol/L (136-145); TOT PROT 4.6 g/dl (6.4-8.2)
--- NOTE | 2018-10-14 12:24 | PN ---
Progress Note, Physician History of Present Illness: Remains in SR, afebrile, no flatus yet. - Current Medication List Current Medications: Active Medications Acetaminophen (Ofirmev Injection -) 1,000 mg IVPB Q6H PRN PRN Reason: PAIN LEVEL 7 - 10 Last Admin: 10/12/18 06:27 Dose: 1,000 mg Chlorhexidine Gluconate (Hibiclens For Decolonization -) 1 applic TP HS [facility] Last Admin: 10/13/18 21:37 Dose: 1 applic Heparin Sodium (Porcine) (Heparin -) 5,000 unit SQ TID [facility] Last Admin: 10/14/18 05:09 Dose: 5,000 unit Piperacillin Sod/Tazobactam (Sod 2.25 gm/ Dextrose) 50 mls @ 100 mls/hr IVPB Q6H-IV [facility]; Protocol Last Admin: 10/14/18 09:24 Dose: 100 mls/hr Potassium Chloride/Dextrose/Sod Cl (D5-1/2ns+20 Meq Kcl -) 20 meq in 1,000 mls @ 100 mls/hr IV ASDIR [facility] Last Admin: 10/13/18 11:25 Dose: 100 mls/hr Metoprolol Tartrate (Lopressor Injection -) 5 mg IVPUSH Q4H PRN PRN Reason: HYPERTENSION Last Admin: 10/12/18 12:46 Dose: 5 mg Mupirocin (Bactroban Ointment (For Decolonization) -) 1 applic NS BID [facility] Stop: 10/16/18 21:59 Last Admin: 10/14/18 09:25 Dose: 1 applic Pantoprazole Sodium (Protonix Iv) 40 mg IVPUSH DAILY [facility] Last Admin: 10/14/18 09:25 Dose: 40 mg - Objective Vital Signs: Vital Signs Temperature 99.3 F 10/14/18 10:00 Pulse Rate 82 10/14/18 10:00 Respiratory Rate 20 10/14/18 10:00 Blood Pressure 129/70 10/14/18 10:00 O2 Sat by Pulse Oximetry (%) 95 10/14/18 10:00 Constitutional: Yes: No Distress, Calm Neck: Yes: Supple Cardiovascular: Yes: Regular Rate and Rhythm Respiratory: Yes: Regular, Diminished, On Nasal O2 Gastrointestinal: Yes: Soft, Hypoactive Bowel Sounds Edema: No Labs: CBC, BMP 10/14/18 09:26 03/21/19 09:26 INR, PTT INR 1.29 (0.83-1.09) H 10/11/18 20:30 - ....Imaging EKG: Report Reviewed (Tele: NSR) Problem List - Problems (1) Paroxysmal atrial fibrillation with rapid ventricular response Code(s): I48.0 - PAROXYSMAL ATRIAL FIBRILLATION (2) Appendix perforation Code(s): K35.32 - ACUTE APPENDICITIS WITH PERF AND LOC PERITONITIS, W/O ABSCS (3) Bowel perforation Code(s): K63.1 - PERFORATION OF INTESTINE (NONTRAUMATIC) (4) Cerebral palsy Code(s): G80.9 - CEREBRAL PALSY, UNSPECIFIED (5) PSVT (paroxysmal supraventricular tachycardia) Code(s): I47.1 - SUPRAVENTRICULAR TACHYCARDIA (6) Sepsis Code(s): A41.9 - SEPSIS, UNSPECIFIED ORGANISM (7) Acute kidney injury Code(s): N17.9 - ACUTE KIDNEY FAILURE, UNSPECIFIED Assessment/Plan 10/12/2018 Normal biventricular size and fxn, mild MR, tr MN 1. Pneumoperitoneum due to bowel perforation/fecal peritonitis and SBO POD#3 s/ p Exp Lap, ileocecetomy for a ruptured appendicitis 2. PAF, PSVT->SR 3. Leukocytosis 4. Hypokalemia 5. Cerebral palsy 6. s/p acute respiratory failure 7. TITI due to sepsis resolving PLAN: 1. IV Lopressor for PSVT/PAF and then PO Lopressor when oral intake is restored 2. Broad spectrum antibiotic post operatively 3. Surgical follow up and continue with wound care 4. K supplement, DVT and GI prophylaxis 5. Await return of bowel function, OOB to chair
--- NOTE | 2018-10-14 12:28 | PN ---
Teaching Attending Note Name of Resident: Briseida Lema ATTENDING PHYSICIAN STATEMENT I saw and evaluated the patient. I reviewed the resident's note and discussed the case with the resident. I agree with the resident's findings and plan as documented. SUBJECTIVE: Pt seen and examined in the ICU. Pain controlled. Still without flatus and significant NGT output. No shortness of breath or chest pain. OBJECTIVE: Vital Signs Period Temp Pulse Resp BP Sys/Osorio Pulse Ox Last 24 Hr 98.1 F-99.3 F 73-104 18-24 118-137/64-85 95-95 Intake & Output 10/11/18 10/12/18 10/13/18 10/14/18 23:59 23:59 23:59 23:59 Intake Total 9800 4120 2700 1400 Output Total 2480 2050 4600 2000 Balance 7320 2070 -1900 -600 Weight 92.442 kg 92.079 kg 88.768 kg 86.6 kg Gen: NAD at rest Heart: RRR Lung: decreased breath sounds at the bases Abd: soft, +dressings with some old heme Ext: no edema CBC, BMP 10/14/18 09:26 10/14/18 09:26 Active Medications Acetaminophen (Ofirmev Injection -) 1,000 mg IVPB Q6H PRN PRN Reason: PAIN LEVEL 7 - 10 Last Admin: 10/12/18 06:27 Dose: 1,000 mg Chlorhexidine Gluconate (Hibiclens For Decolonization -) 1 applic TP HS [facility] Last Admin: 10/13/18 21:37 Dose: 1 applic Heparin Sodium (Porcine) (Heparin -) 5,000 unit SQ TID [facility] Last Admin: 10/14/18 05:09 Dose: 5,000 unit Piperacillin Sod/Tazobactam (Sod 2.25 gm/ Dextrose) 50 mls @ 100 mls/hr IVPB Q6H-IV [facility]; Protocol Last Admin: 10/14/18 09:24 Dose: 100 mls/hr Potassium Chloride/Dextrose/Sod Cl (D5-1/2ns+20 Meq Kcl -) 20 meq in 1,000 mls @ 100 mls/hr IV ASDIR [facility] Last Admin: 10/13/18 11:25 Dose: 100 mls/hr Metoprolol Tartrate (Lopressor Injection -) 5 mg IVPUSH Q4H PRN PRN Reason: HYPERTENSION Last Admin: 10/12/18 12:46 Dose: 5 mg Mupirocin (Bactroban Ointment (For Decolonization) -) 1 applic NS BID [facility] Stop: 10/16/18 21:59 Last Admin: 10/14/18 09:25 Dose: 1 applic Pantoprazole Sodium (Protonix Iv) 40 mg IVPUSH DAILY [facility] Last Admin: 10/14/18 09:25 Dose: 40 mg ASSESSMENT AND PLAN: Ruptured Appendicitis/Fecal Peritonitis s/p ex-lap/ileocecectomy/ileocolic anastamosis s/p Acute Respiratory Failure Severe Sepsis Acute Kidney Injury Lactic Acidosis Cerebral Palsy - continue antibiotics - f/u cultures - IVF - monitor urine output, creatinine - maintain urine output >0.5cc/kg/hr - replete and monitor lytes - pain control - incentive spirometry - await return of bowel function - rehab/PT - OOB to chair - DVT prophylaxis - continue ICU monitoring critical care time spent in reviewing chart, evaluating patient and formulating plan 35 min
--- NOTE | 2018-10-14 16:07 | PN ---
Progress Note, Physician History of Present Illness: comfortable ngt in place - Current Medication List Current Medications: Active Medications Acetaminophen (Ofirmev Injection -) 1,000 mg IVPB Q6H PRN PRN Reason: PAIN LEVEL 7 - 10 Last Admin: 10/12/18 06:27 Dose: 1,000 mg Chlorhexidine Gluconate (Hibiclens For Decolonization -) 1 applic TP HS [facility] Last Admin: 10/13/18 21:37 Dose: 1 applic Heparin Sodium (Porcine) (Heparin -) 5,000 unit SQ TID [facility] Last Admin: 10/14/18 15:00 Dose: 5,000 unit Piperacillin Sod/Tazobactam (Sod 2.25 gm/ Dextrose) 50 mls @ 100 mls/hr IVPB Q6H-IV [facility]; Protocol Last Admin: 10/14/18 15:45 Dose: 100 mls/hr Potassium Chloride/Dextrose/Sod Cl (D5-1/2ns+20 Meq Kcl -) 20 meq in 1,000 mls @ 100 mls/hr IV ASDIR [facility] Last Admin: 10/13/18 11:25 Dose: 100 mls/hr Metoprolol Tartrate (Lopressor Injection -) 5 mg IVPUSH Q4H PRN PRN Reason: HYPERTENSION Last Admin: 10/12/18 12:46 Dose: 5 mg Mupirocin (Bactroban Ointment (For Decolonization) -) 1 applic NS BID [facility] Stop: 10/16/18 21:59 Last Admin: 10/14/18 09:25 Dose: 1 applic Pantoprazole Sodium (Protonix Iv) 40 mg IVPUSH DAILY [facility] Last Admin: 10/14/18 09:25 Dose: 40 mg - Objective Vital Signs: Vital Signs Temperature 99.3 F 10/14/18 10:00 Pulse Rate 82 10/14/18 10:00 Respiratory Rate 20 10/14/18 10:00 Blood Pressure 129/70 10/14/18 10:00 O2 Sat by Pulse Oximetry (%) 95 10/14/18 10:00 Constitutional: Yes: No Distress HENT: Yes: Atraumatic Neck: Yes: Supple Cardiovascular: Yes: Regular Rate and Rhythm Respiratory: Yes: Rhonchi Gastrointestinal: Yes: Tenderness Extremities: Yes: WNL Edema: No Peripheral Pulses WNL: Yes Neurological: Yes: Alert, Oriented Labs: CBC, BMP 10/14/18 09:26 10/14/18 09:26 INR, PTT INR 1.29 (0.83-1.09) H 10/11/18 20:30 Problem List - Problems (1) Appendix perforation Assessment/Plan: s/p surgery iv abx prn pain meds Code(s): K35.32 - ACUTE APPENDICITIS WITH PERF AND LOC PERITONITIS, W/O ABSCS (2) Bowel obstruction Assessment/Plan: s/p surgery Code(s): K56.609 - UNSP INTESTNL OBST, UNSP TO PARTIAL VERSUS COMPLETE OBST Qualifiers: Intestinal obstruction type: other intestinal obstruction (3) Bowel perforation Code(s): K63.1 - PERFORATION OF INTESTINE (NONTRAUMATIC) (4) Sepsis Assessment/Plan: on abx id on board Code(s): A41.9 - SEPSIS, UNSPECIFIED ORGANISM Assessment/Plan DIAGNOSES Ruptured Appendicitis/Fecal Peritonitis s/p ex-lap/ileocecectomy/ileocolic anastamosis s/p Acute Respiratory Failure Severe Sepsis Acute Kidney Injury Lactic Acidosis Cerebral Palsy - cc time 35 min
--- NOTE | 2018-10-14 16:47 | PN ---
Progress Note, Physician History of Present Illness: stable doing well still ng tube draining abd still distended gi function still awaited - Current Medication List Current Medications: Active Medications Acetaminophen (Ofirmev Injection -) 1,000 mg IVPB Q6H PRN PRN Reason: PAIN LEVEL 7 - 10 Last Admin: 10/12/18 06:27 Dose: 1,000 mg Chlorhexidine Gluconate (Hibiclens For Decolonization -) 1 applic TP HS [facility] Last Admin: 10/13/18 21:37 Dose: 1 applic Heparin Sodium (Porcine) (Heparin -) 5,000 unit SQ TID [facility] Last Admin: 10/14/18 15:00 Dose: 5,000 unit Piperacillin Sod/Tazobactam (Sod 2.25 gm/ Dextrose) 50 mls @ 100 mls/hr IVPB Q6H-IV [facility]; Protocol Last Admin: 10/14/18 15:45 Dose: 100 mls/hr Potassium Chloride/Dextrose/Sod Cl (D5-1/2ns+20 Meq Kcl -) 20 meq in 1,000 mls @ 100 mls/hr IV ASDIR [facility] Last Admin: 10/13/18 11:25 Dose: 100 mls/hr Metoprolol Tartrate (Lopressor Injection -) 5 mg IVPUSH Q4H PRN PRN Reason: HYPERTENSION Last Admin: 10/12/18 12:46 Dose: 5 mg Mupirocin (Bactroban Ointment (For Decolonization) -) 1 applic NS BID [facility] Stop: 10/16/18 21:59 Last Admin: 10/14/18 09:25 Dose: 1 applic Pantoprazole Sodium (Protonix Iv) 40 mg IVPUSH DAILY [facility] Last Admin: 10/14/18 09:25 Dose: 40 mg - Objective Vital Signs: Vital Signs Temperature 99.3 F 10/14/18 10:00 Pulse Rate 82 10/14/18 10:00 Respiratory Rate 20 10/14/18 10:00 Blood Pressure 129/70 10/14/18 10:00 O2 Sat by Pulse Oximetry (%) 95 10/14/18 10:00 Constitutional: Yes: No Distress, Mild Distress Cardiovascular: Yes: Regular Rate and Rhythm Respiratory: Yes: Regular, CTA Bilaterally Gastrointestinal: Yes: Tenderness, Other (absent bowel sounds ng tube in place) Musculoskeletal: Yes: WNL Extremities: Yes: WNL Neurological: Yes: Alert, Oriented Psychiatric: Yes: Alert, Oriented Labs: CBC, BMP 10/14/18 09:26 10/14/18 09:26 INR, PTT INR 1.29 (0.83-1.09) H 10/11/18 20:30 Assessment/Plan Problem List - Problems (1) Bowel perforation Code(s): K63.1 - PERFORATION OF INTESTINE (NONTRAUMATIC) (2) Cerebral palsy Code(s): G80.9 - CEREBRAL PALSY, UNSPECIFIED (3) Bowel obstruction Code(s): K56.609 - UNSP INTESTNL OBST, UNSP TO PARTIAL VERSUS COMPLETE OBST (4) Renal failure Code(s): N19 - UNSPECIFIED KIDNEY FAILURE (5) Sepsis Code(s): A41.9 - SEPSIS, UNSPECIFIED ORGANISM 6 leukocytosis Ruptured Appendicitis/Fecal Peritonitis s/p ex-lap/ileocecectomy/ileocolic anastamosis s/p Acute Respiratory Failure Severe Sepsis Acute Kidney Injury Lactic Acidosis Cerebral Palsy plan continue abx wbc trending down monitor wbc awaiting gi function rest as per icu cc 40 min
[2018-10-14] MEDS: D5-1/2NS+20 MEQ KCL - 20 MEQ/1,000 ML INFUS.BAG IV SCH (21:42)
[2018-10-14] MEDS: CHLORHEXIDINE GLUCONATE 4% CLEANSER FOR DECOLONIZATION TP SCH (21:43)
[2018-10-14] MEDS: ACETAMINOPHEN 1000 MG/100 ML VIAL (NON FORMULARY) IVPB PRN (22:04)
[2018-10-15] MEDS ORDERED: PIPERACILLIN/TAZOBACTAM 2.25 GM VIAL IVPB ONE ×4 (03:10→21:22)
[2018-10-15] MEDS ORDERED: DEXTROSE 5%-WATER - 50 ML IVPB ONE ×4 (03:11→21:22)
[2018-10-15] MEDS: PIPERACILLIN/TAZOB 2.25 GM 2.25 GM in DEXTROSE 5%-WATER - 50 ML IVPB SCH ×4 (03:12→22:09)
[2018-10-15] MEDS ORDERED: TETRACAINE/BENZOCAINE/BUTAMBEN 20 GM SPR TP PRN ×2 (04:35→08:42)
[2018-10-15] MEDS ORDERED: BENZOCAINE/MENTH/CETYLPYRD CL 1 EACH LOZENGE MM PRN ×2 (04:36→08:42)
[2018-10-15 06:19] LABS: BASO % 0.2 % (0-2.0); EOS % 0.6 % (0-4.5); HEMOGLOBIN 11.3 GM/dL (11.7-16.9); LYMPH % 8.6 % (8-40); MCH 30.7 pg (25.7-33.7); MCHC 34.1 g/dl (32.0-35.9); MEAN PLT VOLUME 8.8 fl (7.5-11.1); MONO % 8.6 % (3.8-10.2); PLATELET COUNT 266 K/MM3 (134-434); RBC 3.67 M/mm3 (4.00-5.60); RDW 14.8 % (11.9-15.9); WHITE BLOOD COUNT 19.8 K/mm3 (4.0-10.0)
[2018-10-15] MEDS: HEPARIN NA (PORCINE) 5,000 UNITS/ML 1ML VIAL SQ SCH ×3 (06:27→22:10)
[2018-10-15 07:28] LABS: ALBUMIN 1.5 g/dl (3.4-5.0); ALK PHOS 60 U/L (45-117); ANION GAP 5 MMOL/L (8-16); BILIRUBIN,TOTAL 1.3 mg/dL (0.2-1); BLOOD UREA NITROGEN 26 mg/dL (7-18); CALCIUM 7.2 mg/dL (8.5-10.1); CHLORIDE 105 mmol/L (98-107); CO2 29 mmol/L (21-32); CREATININE 0.9 mg/dL (0.55-1.3); GLUCOSE,RANDOM 98 mg/dL (74-106); MAGNESIUM 2.9 mg/dL (1.8-2.4); PHOSPHOROUS 3.1 mg/dL (2.5-4.9); POTASSIUM 3.9 mmol/L (3.5-5.1); SGOT/AST 38 U/L (15-37); SGPT/ALT 24 U/L (13-61); SODIUM 139 mmol/L (136-145); TOT PROT 4.6 g/dl (6.4-8.2)
--- NOTE | 2018-10-15 08:26 | PN ---
Physical Exam: SUBJECTIVE: Patient seen and examined at bedside. No acute events overnight. Still no flatus or BM. Denies cp, sob, abd pain. OBJECTIVE: Vital Signs Period Temp Pulse Resp BP Sys/Osorio Pulse Ox Last 24 Hr 98.9 F-99.5 F 71-87 17-23 117-137/63-79 95-95 GENERAL: Pleasant male. Awake and alert. NAD. On NC. EYES: No pallor or icterus. EARS, NOSE, THROAT: Moist mucous membranes. NG tube in place draining brown fluid. NECK: No JVD. LUNGS:B/L decreased breath sounds at the bases, no added sounds. HEART: Regular rate and rhythm, normal S1 and S2 without murmur. ABDOMEN: Surgical dressing in place, c/d/i. No bowel sounds. : Tomlinson in place draining clear yellow urine. UPPER EXTREMITIES: No peripheral edema. LOWER EXTREMITIES: No peripheral edema. NEUROLOGICAL: Able to follow commands and communicate. SKIN: Warm, dry, normal turgor, no rashes or lesions noted. CBC, BMP 10/15/18 05:30 10/15/18 05:30 Active Medications Acetaminophen (Ofirmev Injection -) 1,000 mg IVPB Q6H PRN PRN Reason: PAIN LEVEL 7 - 10 Last Admin: 10/14/18 22:04 Dose: 1,000 mg Benzocaine/Butamben/Tetracaine HCl (Cetacaine [place] -) 1 spray TP DAILY PRN PRN Reason: SORE THROAT Benzocaine/Menthol (Cepacol Lozenge -) 1 each MM PRN PRN PRN Reason: SORE THROAT Chlorhexidine Gluconate (Hibiclens For Decolonization -) 1 applic TP HS [facility] Last Admin: 10/14/18 21:43 Dose: 1 applic Heparin Sodium (Porcine) (Heparin -) 5,000 unit SQ TID [facility] Last Admin: 10/15/18 06:27 Dose: 5,000 unit Piperacillin Sod/Tazobactam (Sod 2.25 gm/ Dextrose) 50 mls @ 100 mls/hr IVPB Q6H-IV [facility]; Protocol Last Admin: 10/15/18 03:12 Dose: 100 mls/hr Potassium Chloride/Dextrose/Sod Cl (D5-1/2ns+20 Meq Kcl -) 20 meq in 1,000 mls @ 100 mls/hr IV ASDIR [facility] Last Admin: 10/14/18 21:42 Dose: 100 mls/hr Metoprolol Tartrate (Lopressor Injection -) 5 mg IVPUSH Q4H PRN PRN Reason: HYPERTENSION Last Admin: 10/12/18 12:46 Dose: 5 mg Mupirocin (Bactroban Ointment (For Decolonization) -) 1 applic NS BID [facility] Stop: 10/16/18 21:59 Last Admin: 10/14/18 21:42 Dose: 1 applic Pantoprazole Sodium (Protonix Iv) 40 mg IVPUSH DAILY [facility] Last Admin: 10/14/18 09:25 Dose: 40 mg CONSULT: Surg- Dr. Calle Cardio- Dr. Mueller ID- Dr. Arroyo IMAGING: * Abd U/S (10/11/18): Limited study with sludge filled GB and air throughout biliary tree. * CTAP (10/11/18): Pneumoperitoneum indicative of bowel perf. Marked distension of stomach and proximal small bowel loops c/w high grade SBO. Suspected portal venous air. Atrophic horseshoe kidneys. * EKG (10/12/18): Afib w/ RVR, HR 137, QTc 465 ms, No ST-T changes * CTAP w/o contrast (10/12/18): Equivocal visualization of an approximate 6 x2 cm fluid collection within R lateral aspect of mid to upper pelvis vs. representing unopacified bowel. Interval development of bibasilar consolidation noted which may be on basis of atelectasis and/or infiltrates. Partial imaging of R middle lobe infiltrate/atelectasis. * Echo (10/12/18): Pt tachycardic during exam. LV size, thickness, fxn are normal. EF = 60%. RV nl in size and fxn. LA mildly dilated. Mild MR. Trace TR. RV systolic pressure 24 mmHg. Trace pulmonic valvular regurgitation. ASSESSMENT/PLAN: 48M w/ pmhx of mild CP presented with perforated viscus and pneumoperitoneum admitted to the ICU for post-op monitoring s/p ex lap, ileocecotomy, with ileocolic stapled anastomosis, POD #4 (surgery done on 10/11/18). Neuro -Extubated, doing well on NC satting at 96%. Pulm -Stable. -Cont to monitor O2 sat CV #Sinus tachycardia and intermittent PSVT -Per cardio, recommend IV Lopressor 5 mg Q4H for PSVT; then may give PO Lopressor when no longer NPO -Echo noted above -cont to monitor tele for cardiac events -F/u cardio recs GI #S/p ex lap 2/2 perf viscus and pneumoperitoneum, POD #4 -Per ID, cont Zosyn 2.25 Q6H IVPB (started 10/11/18) Day 5 -NG in place, with low wall suction draining fluid; output ~1700cc over past 24h -Tomlinson in place, monitor urinary output. -BCx neg x96h, UCx neg; Peritoneal fluid growing alpha hemolytic strep; ID recs -Await return bowel function -IS/OOB to chair/PT Renal #TITI; Cr today 0.9, resolved -cont D5-1/2NS @ 100 -Maintain urine output at >0.5cc/kg/hr; monitor UOP -recheck BMP #Hypokalemia; today K+ 3.8 -Replete PRN ID #Perforated viscus w/ ruptured appendix -Per ID, cont Zosyn 2.25 gm Q6H IVP -Peritoneal fluid cx +alpha hemo strep -Throat cx neg Prophylaxis GI- Protonix 40 IVP QD DVT- SQH/SCDs FEN -switched to D5-1/2NS + 20 KCl mEq @ 100 -replete lytes PRN (K+) -NPO dispo -transfer to tele Visit type - Emergency Visit Emergency Visit: Yes ED Registration Date: 10/11/18 Care time: The patient presented to the Emergency Department on the above date and was hospitalized for further evaluation of their emergent condition. - New Patient This patient is new to me today: No - Critical Care Critical Care patient: Yes Total Critical Care Time (in minutes): 30 Critical Care Statement: The care of this patient involved high complexity decision making to prevent further life threatening deterioration of the patient 's condition and/or to evaluate & treat vital organ system(s) failure or risk of failure.
[2018-10-15] MEDS ORDERED: ACETAMINOPHEN 1000 MG/100 ML VIAL (NON FORMULARY) IVPB PRN (08:42)
[2018-10-15] MEDS ORDERED: METOPROLOL TARTRATE 5 MG/5 ML VIAL IVPUSH PRN (08:42)
[2018-10-15] MEDS ORDERED: FLU VACCINE QUAD 60 MCG/0.5 ML (MDV 18-19) IM ONE (10:00)
[2018-10-15] MEDS: D5-1/2NS+20 MEQ KCL - 20 MEQ/1,000 ML INFUS.BAG IV SCH (10:06)
[2018-10-15] MEDS: PANTOPRAZOLE SODIUM 40 MG VIAL IVPUSH SCH (10:07)
[2018-10-15] MEDS: MUPIROCIN 2% TOPICAL OINTMENT FOR DECOLONIZATION NS SCH ×2 (10:07→22:10)
--- NOTE | 2018-10-15 10:08 | PN ---
Progress Note, Physician History of Present Illness: Remains in SR, afebrile, no flatus yet. - Current Medication List Current Medications: Active Medications Acetaminophen (Ofirmev Injection -) 1,000 mg IVPB Q6H PRN PRN Reason: PAIN LEVEL 7 - 10 Benzocaine/Butamben/Tetracaine HCl (Cetacaine [place] -) 1 spray TP DAILY PRN PRN Reason: SORE THROAT Benzocaine/Menthol (Cepacol Lozenge -) 1 each MM PRN PRN PRN Reason: SORE THROAT Chlorhexidine Gluconate (Hibiclens For Decolonization -) 1 applic TP HS [facility] Heparin Sodium (Porcine) (Heparin -) 5,000 unit SQ TID [facility] Potassium Chloride/Dextrose/Sod Cl (D5-1/2ns+20 Meq Kcl -) 20 meq in 1,000 mls @ 100 mls/hr IV ASDIR [facility] Last Admin: 10/15/18 10:06 Dose: 100 mls/hr Piperacillin Sod/Tazobactam (Sod 2.25 gm/ Dextrose) 50 mls @ 100 mls/hr IVPB Q6H-IV [facility]; Protocol Last Admin: 10/15/18 10:07 Dose: 100 mls/hr Metoprolol Tartrate (Lopressor Injection -) 5 mg IVPUSH Q4H PRN PRN Reason: HYPERTENSION Mupirocin (Bactroban Ointment (For Decolonization) -) 1 applic NS BID [facility] Stop: 10/16/18 21:59 Last Admin: 10/15/18 10:07 Dose: 1 applic Pantoprazole Sodium (Protonix Iv) 40 mg IVPUSH DAILY [facility] Last Admin: 10/15/18 10:07 Dose: 40 mg - Objective Vital Signs: Vital Signs Temperature 99.5 F 10/15/18 06:00 Pulse Rate 85 10/15/18 06:00 Respiratory Rate 20 10/15/18 06:00 Blood Pressure 123/67 10/15/18 06:00 O2 Sat by Pulse Oximetry (%) 95 10/14/18 20:59 Constitutional: Yes: No Distress, Calm Neck: Yes: Supple Cardiovascular: Yes: Regular Rate and Rhythm Respiratory: Yes: Regular, Diminished Gastrointestinal: Yes: Soft, Hypoactive Bowel Sounds Edema: Yes Labs: CBC, BMP 10/15/18 05:30 10/15/18 05:30 INR, PTT INR 1.29 (0.83-1.09) H 10/11/18 20:30 Problem List - Problems (1) Paroxysmal atrial fibrillation with rapid ventricular response Code(s): I48.0 - PAROXYSMAL ATRIAL FIBRILLATION (2) Appendix perforation Code(s): K35.32 - ACUTE APPENDICITIS WITH PERF AND LOC PERITONITIS, W/O ABSCS (3) Bowel perforation Code(s): K63.1 - PERFORATION OF INTESTINE (NONTRAUMATIC) (4) Cerebral palsy Code(s): G80.9 - CEREBRAL PALSY, UNSPECIFIED (5) PSVT (paroxysmal supraventricular tachycardia) Code(s): I47.1 - SUPRAVENTRICULAR TACHYCARDIA (6) Sepsis Code(s): A41.9 - SEPSIS, UNSPECIFIED ORGANISM (7) Acute kidney injury Code(s): N17.9 - ACUTE KIDNEY FAILURE, UNSPECIFIED Assessment/Plan 10/12/2018 Normal biventricular size and fxn, mild MR, tr [place] 1. Pneumoperitoneum due to bowel perforation/fecal peritonitis and SBO POD#4 s/ p Exp Lap, ileocecetomy for a ruptured appendicitis 2. PAF, PSVT->SR 3. Leukocytosis 4. Hypokalemia 5. Cerebral palsy 6. s/p acute respiratory failure 7. TITI due to sepsis resolving PLAN: 1. IV Lopressor for PSVT/PAF and then PO Lopressor when oral intake is restored 2. Broad spectrum antibiotic post operatively 3. Surgical follow up and continue with wound care 4. K supplement, DVT and GI prophylaxis 5. Await return of bowel function, OOB to chair
[2018-10-15 12:00] LABS: ANISOCYTOSIS 0; MACROCYTOSIS 0; PLATELET ESTIMATE NORMAL
--- NOTE | 2018-10-15 13:42 | PN ---
Progress Note (short form) - Note Progress Note: Patient seen and examined. NGT remains in place. No flatus. OBJECTIVE: Intake & Output 10/12/18 10/13/18 10/14/18 10/15/18 23:59 23:59 23:59 23:59 Intake Total 4120 2700 2700 1200 Output Total 2049 4600 3100 1300 Balance 2070 -1900 -400 -100 Weight 203 lb 195 lb 11.2 oz 190 lb 14.725 oz 191 lb 9.6 oz Last Vital Signs Temp Pulse Resp BP Pulse Ox 98.5 F 88 20 127/62 95 10/15/18 10:00 10/15/18 10:00 10/15/18 10:00 10/15/18 10:00 10/15/18 10:00 Active Medications Acetaminophen (Ofirmev Injection -) 1,000 mg IVPB Q6H PRN PRN Reason: PAIN LEVEL 7 - 10 Benzocaine/Butamben/Tetracaine HCl (Cetacaine [place] -) 1 spray TP DAILY PRN PRN Reason: SORE THROAT Benzocaine/Menthol (Cepacol Lozenge -) 1 each MM PRN PRN PRN Reason: SORE THROAT Chlorhexidine Gluconate (Hibiclens For Decolonization -) 1 applic TP HS [facility] Heparin Sodium (Porcine) (Heparin -) 5,000 unit SQ TID [facility] Last Admin: 10/15/18 13:27 Dose: 5,000 unit Potassium Chloride/Dextrose/Sod Cl (D5-1/2ns+20 Meq Kcl -) 20 meq in 1,000 mls @ 100 mls/hr IV ASDIR [facility] Last Admin: 10/15/18 10:06 Dose: 100 mls/hr Piperacillin Sod/Tazobactam (Sod 2.25 gm/ Dextrose) 50 mls @ 100 mls/hr IVPB Q6H-IV [facility]; Protocol Last Admin: 10/15/18 10:07 Dose: 100 mls/hr Metoprolol Tartrate (Lopressor Injection -) 5 mg IVPUSH Q4H PRN PRN Reason: HYPERTENSION Mupirocin (Bactroban Ointment (For Decolonization) -) 1 applic NS BID [facility] Stop: 10/16/18 21:59 Last Admin: 10/15/18 10:07 Dose: 1 applic Pantoprazole Sodium (Protonix Iv) 40 mg IVPUSH DAILY [facility] Last Admin: 10/15/18 10:07 Dose: 40 mg Gen: NAD at rest Heart: RRR Lung: decreased breath sounds at the bases Abd: soft, +dressings intact, Hypoactive BS Ext: (+) edema Laboratory Results - last 24 hr 10/15/18 10/15/18 05:30 05:30 WBC 19.8 H RBC 3.67 L Hgb 11.3 L Hct 33.0 L MCV 90.0 MCH 30.7 MCHC 34.1 RDW 14.8 Plt Count 266 MPV 8.8 Absolute Neuts (auto) 16.2 H Neutrophils % 82.0 Neutrophils % (Manual) 78.4 Band Neutrophils % 1.0 Lymphocytes % 8.6 D Lymphocytes % (Manual) 6.9 L D Monocytes % 8.6 D Monocytes % (Manual) 6 Eosinophils % 0.6 D Eosinophils % (Manual) 0.0 Basophils % 0.2 Basophils % (Manual) 0.0 Myelocytes % (Man) 5 H D Promyelocytes % (Man) 0 Blast Cells % (Manual) 0 Nucleated RBC % 0 Metamyelocytes 3 H D Hypochromia 0 Platelet Estimate Normal Polychromasia 0 Poikilocytosis 0 Anisocytosis 0 Microcytosis 0 Macrocytosis 0 Sodium 139 Potassium 3.9 Chloride 105 Carbon Dioxide 29 Anion Gap 5 L BUN 26 H Creatinine 0.9 Creat Clearance w eGFR 89.69 Random Glucose 98 Calcium 7.2 L Phosphorus 3.1 Magnesium 2.9 H Total Bilirubin 1.3 H Direct Bilirubin 1.0 H AST 38 H ALT 24 Alkaline Phosphatase 60 Total Protein 4.6 L Albumin 1.5 L ASSESSMENT AND PLAN: Ruptured Appendicitis/Fecal Peritonitis s/p ex-lap/ileocecectomy/ileocolic anastamosis s/p Acute Respiratory Failure Severe Sepsis Acute Kidney Injury Lactic Acidosis Cerebral Palsy - ABX - IVF - monitor urine output, creatinine - maintain urine output >0.5cc/kg/hr - replete and monitor lytes - pain control - incentive spirometry - await return of bowel function - rehab/PT - OOB to chair - DVT prophylaxis Dr Yang
--- NOTE | 2018-10-15 13:49 | PATH ---
Surgical Pathology Report Patient Name: GETACHEW GARCIA [facility]. Rec. #: [id number] /Age/Gender: 1970 (Age: 48) / M Account: [id number] Location: [facility] R Taken: 10/11/2018 Received: 10/12/2018 Reported: 10/15/2018 Physicians: Mark Camp M.D. Specimen(s) Received PORTION OF TERMIAL ILEUM, APPENDIX AND CECUM Clinical History Perforated appendicitis with abscess and generalized peritonitis Final Diagnosis PORTION OF TERMINAL ILEUM, APPENDIX, AND CEUM, RESECTION: SEVERE ACUTE TRANSMURAL APPENDICITIS WITH FOCAL PERFORATION. PORTION OF CECUM SHOWING DILATED LUMEN WITH THINNING OF COLONIC WALL, MARKED VASCULAR CONGESTION, AND FOCAL ISCHEMIC CHANGE OF THE COLONIC MUCOSA. PORTION OF ILEUM WITH MARKED VASCULAR CONGESTION. SEVERE ACUTE PERITONITIS. VIABLE MARGINS. Electronically Signed Chencho Garcia M.D. Gross Description Specimen received in formalin labeled "portion of terminal ileum, appendix, and cecum" and consists of the terminal portion of the ileum in continuity with the cecum, a segment of colon, attached appendix, and mesenteric adipose tissue. The terminal portion of the ileum measures 12 cm in length and 6 cm in average circumference. The segment of colon measures 17 cm in length and 10 to 15 cm in average circumference. The serosal surface shows white exudate involving the ileum, cecum and appendix. On opening, the colon reveals focal paper thin wall near the distal portion, no mass or polyp is identified. The rest of the bowel mucosa of the terminal ileum and colon is unremarkable with the usual folding pattern. The appendix measures 6 cm in length and 0.7 cm in diameter and show white exudate. The base of the appendix show dark brown gangrenous change, with focal perforation/rupture, which measures 0.4cm in greatest dimension. Serial sections reveal bloody purulent material in the appendiceal lumen. [employer] sections are submitted in 10 cassettes. 1: Proximal margin. 2: Distal margin 3: Paper thin area of the colon wall. 4 to 5: Colon. 6: Ileum 7: tips of appendix, bisected. 8: Mid sections of the appendix 9 and 10: Base of the appendix KWS/10/12/2018 sulki/10/12/2018
--- NOTE | 2018-10-15 17:27 | PN ---
Progress Note, Physician History of Present Illness: comfortable on RA ngt dc today npo - Current Medication List Current Medications: Active Medications Acetaminophen (Ofirmev Injection -) 1,000 mg IVPB Q6H PRN PRN Reason: PAIN LEVEL 7 - 10 Benzocaine/Butamben/Tetracaine HCl (Cetacaine [place] -) 1 spray TP DAILY PRN PRN Reason: SORE THROAT Benzocaine/Menthol (Cepacol Lozenge -) 1 each MM PRN PRN PRN Reason: SORE THROAT Chlorhexidine Gluconate (Hibiclens For Decolonization -) 1 applic TP HS [facility] Heparin Sodium (Porcine) (Heparin -) 5,000 unit SQ TID [facility] Last Admin: 10/15/18 13:27 Dose: 5,000 unit Potassium Chloride/Dextrose/Sod Cl (D5-1/2ns+20 Meq Kcl -) 20 meq in 1,000 mls @ 100 mls/hr IV ASDIR [facility] Last Admin: 10/15/18 10:06 Dose: 100 mls/hr Piperacillin Sod/Tazobactam (Sod 2.25 gm/ Dextrose) 50 mls @ 100 mls/hr IVPB Q6H-IV [facility]; Protocol Last Admin: 10/15/18 15:47 Dose: 100 mls/hr Metoprolol Tartrate (Lopressor Injection -) 5 mg IVPUSH Q4H PRN PRN Reason: HYPERTENSION Mupirocin (Bactroban Ointment (For Decolonization) -) 1 applic NS BID [facility] Stop: 10/16/18 21:59 Last Admin: 10/15/18 10:07 Dose: 1 applic Pantoprazole Sodium (Protonix Iv) 40 mg IVPUSH DAILY [facility] Last Admin: 10/15/18 10:07 Dose: 40 mg - Objective Vital Signs: Vital Signs Temperature 98.5 F 10/15/18 10:00 Pulse Rate 88 10/15/18 15:00 Respiratory Rate 20 10/15/18 15:00 Blood Pressure 115/65 10/15/18 15:00 O2 Sat by Pulse Oximetry (%) 95 10/15/18 10:00 Constitutional: Yes: No Distress HENT: Yes: Atraumatic Neck: Yes: Supple Cardiovascular: Yes: Regular Rate and Rhythm Respiratory: Yes: Rhonchi Gastrointestinal: Yes: Hypoactive Bowel Sounds Extremities: Yes: WNL Edema: No Neurological: Yes: Alert, Oriented Labs: CBC, BMP 10/15/18 05:30 10/15/18 05:30 INR, PTT INR 1.29 (0.83-1.09) H 10/11/18 20:30 Problem List - Problems (1) Appendix perforation Assessment/Plan: s/p surgery iv abx prn pain meds Code(s): K35.32 - ACUTE APPENDICITIS WITH PERF AND LOC PERITONITIS, W/O ABSCS (2) Bowel obstruction Assessment/Plan: s/p surgery Code(s): K56.609 - UNSP INTESTNL OBST, UNSP TO PARTIAL VERSUS COMPLETE OBST Qualifiers: Intestinal obstruction type: other intestinal obstruction (3) Bowel perforation Code(s): K63.1 - PERFORATION OF INTESTINE (NONTRAUMATIC) (4) Sepsis Assessment/Plan: on abx id on board Code(s): A41.9 - SEPSIS, UNSPECIFIED ORGANISM
[2018-10-15] MEDS ORDERED: PT OWN MED DRAWER 7, Y5N ONE (21:21)
[2018-10-15] MEDS: CHLORHEXIDINE GLUCONATE 4% CLEANSER FOR DECOLONIZATION TP SCH (22:11)
[2018-10-16] MEDS ORDERED: PIPERACILLIN/TAZOBACTAM 2.25 GM VIAL IVPB ONE ×4 (00:35→22:10)
[2018-10-16] MEDS ORDERED: DEXTROSE 5%-WATER - 50 ML IVPB ONE ×4 (00:35→22:10)
[2018-10-16] MEDS: PIPERACILLIN/TAZOB 2.25 GM 2.25 GM in DEXTROSE 5%-WATER - 50 ML IVPB SCH ×4 (03:05→22:17)
[2018-10-16] MEDS: HEPARIN NA (PORCINE) 5,000 UNITS/ML 1ML VIAL SQ SCH ×3 (06:20→22:16)
--- NOTE | 2018-10-16 07:33 | PN ---
Progress Note (short form) - Note Progress Note: Chief Complaint: Events noted, notes reviewed, denies any chest pain or dyspnea , sinus rhythm noted History of Present Illness: Seen and examined on telemetry. Events noted, notes reviewed, denies any chest pain or dyspnea, sinus rhythm noted Echocardiography 10/12/2018 Normal bi-ventricular size and function, mild MR, trace AL - Current Medication List Current Medications Acetaminophen (Ofirmev Injection -) 1,000 mg IVPB Q6H PRN PRN Reason: PAIN LEVEL 7 - 10 Benzocaine/Butamben/Tetracaine HCl (Cetacaine [place] -) 1 spray TP DAILY PRN PRN Reason: SORE THROAT Benzocaine/Menthol (Cepacol Lozenge -) 1 each MM PRN PRN PRN Reason: SORE THROAT Chlorhexidine Gluconate (Hibiclens For Decolonization -) 1 applic TP HS [facility] Last Admin: 10/15/18 22:11 Dose: 1 applic Heparin Sodium (Porcine) (Heparin -) 5,000 unit SQ TID [facility] Last Admin: 10/16/18 06:20 Dose: 5,000 unit Potassium Chloride/Dextrose/Sod Cl (D5-1/2ns+20 Meq Kcl -) 20 meq in 1,000 mls @ 100 mls/hr IV ASDIR [facility] Last Admin: 10/15/18 10:06 Dose: 100 mls/hr Piperacillin Sod/Tazobactam (Sod 2.25 gm/ Dextrose) 50 mls @ 100 mls/hr IVPB Q6H-IV [facility]; Protocol Last Admin: 10/16/18 03:05 Dose: 100 mls/hr Metoprolol Tartrate (Lopressor Injection -) 5 mg IVPUSH Q4H PRN PRN Reason: HYPERTENSION Mupirocin (Bactroban Ointment (For Decolonization) -) 1 applic NS BID [facility] Stop: 10/16/18 21:59 Last Admin: 10/15/18 22:10 Dose: 1 applic Pantoprazole Sodium (Protonix Iv) 40 mg IVPUSH DAILY [facility] Last Admin: 10/15/18 10:07 Dose: 40 mg Review of Systems Cardiovascular: As noted above Respiratory: denies: Cough or Sputum Production Gastrointestinal: denies: Nausea, Vomiting, Diarrhea, Constipation Musculoskeletal: No Symptoms Reported Endocrine: No Symptoms Reported - Objective Vital Signs: Last Vital Signs Temp Pulse Resp BP Pulse Ox 99 F 76 22 H 116/64 95 10/15/18 18:37 10/16/18 06:00 10/16/18 06:00 10/16/18 06:00 10/15/18 20:57 Intake & Output 10/13/18 10/14/18 10/15/18 10/16/18 23:59 23:59 23:59 23:59 Intake Total 2700 2700 2400 Output Total 4600 3100 2000 Balance -1900 -400 400 Weight 195 lb 11.2 oz 190 lb 14.725 oz 191 lb 9.6 oz Neck: Supple Negative JVD No Bruit Cardiovascular: S1 S2 Regualr Rate Rhythm Respiratory: Diminished Breath Sounds at the Bases Gastrointestinal: Soft Benign Hypoactive Bowel Sounds Ext: Negative Edema Labs: CBC, BMP 10/15/18 05:30 10/15/18 05:30 INR, PTT INR 1.29 (0.83-1.09) H 10/11/18 20:30 Assessment/Plan ASSESSMENT: 1. Pneumo-peritoneum due to bowel perforation/fecal peritonitis/SBO POD#5 post Exp-Lap, ileocecetomy for a ruptured appendicitis 2. PAF [id number] score of 0, PSVT currently in sinus rhythm 3. Leukocytosis, persistent 4. Post acute respiratory failure 5. History of Cerebral palsy 6. Acute renal insufficiency due to sepsis syndrome/resolved PLAN: 1. Continue IV Lopressor and then switch to PO Lopressor once oral intake is restored 2. No indications for long tern A/C considering the above noted [id number] score of 0 3. Antibiotic as per the primary team 4. OOB/ambulate Martin Rubio M.D.
[2018-10-16] MEDS: MUPIROCIN 2% TOPICAL OINTMENT FOR DECOLONIZATION NS SCH (09:48)
[2018-10-16] MEDS: D5-1/2NS+20 MEQ KCL - 20 MEQ/1,000 ML INFUS.BAG IV SCH (09:48)
[2018-10-16] MEDS: PANTOPRAZOLE SODIUM 40 MG VIAL IVPUSH SCH (09:48)
--- NOTE | 2018-10-16 13:22 | PN ---
Progress Note, Physician Chief Complaint: abdominal pain History of Present Illness: 48 yo male PMH CP here with his mother c/o abd pain n/v. states abd pain started one week ago. initially with mild discomfort and nausea, over the last 2 days pain has progressed to vomiting . He has been stable post operatively. - Current Medication List Current Medications: Active Medications Acetaminophen (Ofirmev Injection -) 1,000 mg IVPB Q6H PRN PRN Reason: PAIN LEVEL 7 - 10 Benzocaine/Butamben/Tetracaine HCl (Cetacaine [place] -) 1 spray TP DAILY PRN PRN Reason: SORE THROAT Benzocaine/Menthol (Cepacol Lozenge -) 1 each MM PRN PRN PRN Reason: SORE THROAT Chlorhexidine Gluconate (Hibiclens For Decolonization -) 1 applic TP HS [facility] Last Admin: 10/15/18 22:11 Dose: 1 applic Heparin Sodium (Porcine) (Heparin -) 5,000 unit SQ TID [facility] Last Admin: 10/16/18 06:20 Dose: 5,000 unit Potassium Chloride/Dextrose/Sod Cl (D5-1/2ns+20 Meq Kcl -) 20 meq in 1,000 mls @ 100 mls/hr IV ASDIR [facility] Last Admin: 10/16/18 09:48 Dose: 100 mls/hr Piperacillin Sod/Tazobactam (Sod 2.25 gm/ Dextrose) 50 mls @ 100 mls/hr IVPB Q6H-IV [facility]; Protocol Last Admin: 10/16/18 09:48 Dose: 100 mls/hr Metoprolol Tartrate (Lopressor Injection -) 5 mg IVPUSH Q4H PRN PRN Reason: HYPERTENSION Mupirocin (Bactroban Ointment (For Decolonization) -) 1 applic NS BID [facility] Stop: 10/16/18 21:59 Last Admin: 10/16/18 09:48 Dose: 1 applic Pantoprazole Sodium (Protonix Iv) 40 mg IVPUSH DAILY [facility] Last Admin: 10/16/18 09:48 Dose: 40 mg - Objective Vital Signs: Vital Signs Temperature 99 F 10/15/18 18:37 Pulse Rate 76 10/16/18 06:00 Respiratory Rate 22 H 10/16/18 06:00 Blood Pressure 116/64 10/16/18 06:00 O2 Sat by Pulse Oximetry (%) 95 10/15/18 20:57 Vital Signs Period Temp Pulse Resp BP Sys/Osorio Pulse Ox Last 24 Hr 98.2 F-100.5 F 89-108 19-35 94-136/56-85 92-98 Constitutional: Yes: Well Nourished, No Distress, Calm Eyes: Yes: Conjunctiva Clear, EOM Intact HENT: Yes: Atraumatic, Normocephalic Neck: Yes: Supple, Trachea Midline Cardiovascular: Yes: Regular Rate and Rhythm, S1, S2 Respiratory: Yes: Regular, CTA Bilaterally Gastrointestinal: Yes: Normal Bowel Sounds, Soft. No: Tenderness ...Rectal Exam: Yes: Deferred Genitourinary: No: CVA Tenderness - Left, CVA Tenderness - Right Musculoskeletal: No: Muscle Pain, Muscle Weakness Extremities: No: Cool, Cyanosis Edema: No Peripheral Pulses WNL: Yes Peripheral Pulses: Left Radial: 2+, Right Radial: 2+, Left Doralis Pedis: 2+, Right Dorsalis Pedis: 2+, Left Femoral: 2+, Right Femoral: 2+ Integumentary: No: Jaundice, Onychomycosis Wound/Incision: Yes: Clean/Dry, Shira Intact, Draining, Unapproximated Neurological: Yes: Alert, Oriented Psychiatric: Yes: Alert, Oriented Labs: CBC, BMP 10/15/18 05:30 10/15/18 05:30 INR, PTT INR 1.29 (0.83-1.09) H 10/11/18 20:30 Problem List - Problems (1) Bowel perforation Assessment/Plan: 48yo male with peritonitis and perforated viscus that will need surgical exploration POD#2 s/p Exp Lap, ileocecetomy for a ruptured appendicitis NPO and IVF hydration NGT to [facility]WS IV antibiotics per ID Adequate analgesia OOB aand ambulate will follow This patient is critically ill. Time spent reviewing chart, examining patient, talking with providers and/or family and documentation is 35 minutes. Code(s): K63.1 - PERFORATION OF INTESTINE (NONTRAUMATIC) (2) Cerebral palsy Code(s): G80.9 - CEREBRAL PALSY, UNSPECIFIED (3) Bowel obstruction Code(s): K56.609 - UNSP INTESTNL OBST, UNSP TO PARTIAL VERSUS COMPLETE OBST Qualifiers: Intestinal obstruction type: other intestinal obstruction (4) Renal failure Code(s): N19 - UNSPECIFIED KIDNEY FAILURE Qualifiers: Renal failure chronicity: acute (5) Sepsis Code(s): A41.9 - SEPSIS, UNSPECIFIED ORGANISM
--- NOTE | 2018-10-16 16:33 | PN ---
Progress Note, Physician - Current Medication List Current Medications: Active Medications Acetaminophen (Ofirmev Injection -) 1,000 mg IVPB Q6H PRN PRN Reason: PAIN LEVEL 7 - 10 Benzocaine/Butamben/Tetracaine HCl (Cetacaine [place] -) 1 spray TP DAILY PRN PRN Reason: SORE THROAT Benzocaine/Menthol (Cepacol Lozenge -) 1 each MM PRN PRN PRN Reason: SORE THROAT Chlorhexidine Gluconate (Hibiclens For Decolonization -) 1 applic TP HS COUNTS INCLUDE 234 BEDS AT THE [facility] Last Admin: 10/15/18 22:11 Dose: 1 applic Heparin Sodium (Porcine) (Heparin -) 5,000 unit SQ TID COUNTS INCLUDE 234 BEDS AT THE [facility] Last Admin: 10/16/18 14:44 Dose: 5,000 unit Potassium Chloride/Dextrose/Sod Cl (D5-1/2ns+20 Meq Kcl -) 20 meq in 1,000 mls @ 100 mls/hr IV ASDIR COUNTS INCLUDE 234 BEDS AT THE [facility] Last Admin: 10/16/18 09:48 Dose: 100 mls/hr Piperacillin Sod/Tazobactam (Sod 2.25 gm/ Dextrose) 50 mls @ 100 mls/hr IVPB Q6H-IV [facility]; Protocol Last Admin: 10/16/18 14:44 Dose: 100 mls/hr Metoprolol Tartrate (Lopressor Injection -) 5 mg IVPUSH Q4H PRN PRN Reason: HYPERTENSION Mupirocin (Bactroban Ointment (For Decolonization) -) 1 applic NS BID COUNTS INCLUDE 234 BEDS AT THE [facility] Stop: 10/16/18 21:59 Last Admin: 10/16/18 09:48 Dose: 1 applic Pantoprazole Sodium (Protonix Iv) 40 mg IVPUSH DAILY COUNTS INCLUDE 234 BEDS AT THE [facility] Last Admin: 10/16/18 09:48 Dose: 40 mg - Objective Vital Signs: Vital Signs Temperature 99 F 10/15/18 18:37 Pulse Rate 95 H 10/16/18 14:47 Respiratory Rate 20 10/16/18 14:47 Blood Pressure 117/81 10/16/18 14:47 O2 Sat by Pulse Oximetry (%) 95 10/16/18 10:00 Labs: CBC, BMP 10/15/18 05:30 10/15/18 05:30 INR, PTT INR 1.29 (0.83-1.09) H 10/11/18 20:30
--- NOTE | 2018-10-16 16:45 | PN ---
Progress Note, Physician History of Present Illness: stable improving ng tube in place - Current Medication List Current Medications: Active Medications Acetaminophen (Ofirmev Injection -) 1,000 mg IVPB Q6H PRN PRN Reason: PAIN LEVEL 7 - 10 Benzocaine/Butamben/Tetracaine HCl (Cetacaine [place] -) 1 spray TP DAILY PRN PRN Reason: SORE THROAT Benzocaine/Menthol (Cepacol Lozenge -) 1 each MM PRN PRN PRN Reason: SORE THROAT Chlorhexidine Gluconate (Hibiclens For Decolonization -) 1 applic TP HS [facility] Last Admin: 10/15/18 22:11 Dose: 1 applic Heparin Sodium (Porcine) (Heparin -) 5,000 unit SQ TID [facility] Last Admin: 10/16/18 14:44 Dose: 5,000 unit Potassium Chloride/Dextrose/Sod Cl (D5-1/2ns+20 Meq Kcl -) 20 meq in 1,000 mls @ 100 mls/hr IV ASDIR [facility] Last Admin: 10/16/18 09:48 Dose: 100 mls/hr Piperacillin Sod/Tazobactam (Sod 2.25 gm/ Dextrose) 50 mls @ 100 mls/hr IVPB Q6H-IV [facility]; Protocol Last Admin: 10/16/18 14:44 Dose: 100 mls/hr Metoprolol Tartrate (Lopressor Injection -) 5 mg IVPUSH Q4H PRN PRN Reason: HYPERTENSION Mupirocin (Bactroban Ointment (For Decolonization) -) 1 applic NS BID [facility] Stop: 10/16/18 21:59 Last Admin: 10/16/18 09:48 Dose: 1 applic Pantoprazole Sodium (Protonix Iv) 40 mg IVPUSH DAILY [facility] Last Admin: 10/16/18 09:48 Dose: 40 mg - Objective Vital Signs: Vital Signs Temperature 99 F 10/15/18 18:37 Pulse Rate 95 H 10/16/18 14:47 Respiratory Rate 20 10/16/18 14:47 Blood Pressure 117/81 10/16/18 14:47 O2 Sat by Pulse Oximetry (%) 95 10/16/18 10:00 Constitutional: Yes: No Distress, Calm Cardiovascular: Yes: S1, S2 Respiratory: Yes: On Nasal O2, Poor Air Entry (bases) Gastrointestinal: Yes: Soft, Other (absent bowel sounds) Musculoskeletal: Yes: WNL Extremities: Yes: WNL Neurological: Yes: Alert, Oriented Psychiatric: Yes: Alert, Oriented Labs: CBC, BMP 10/15/18 05:30 10/15/18 05:30 INR, PTT INR 1.29 (0.83-1.09) H 10/11/18 20:30 Assessment/Plan Problem List - Problems (1) Bowel perforation Code(s): K63.1 - PERFORATION OF INTESTINE (NONTRAUMATIC) (2) Cerebral palsy Code(s): G80.9 - CEREBRAL PALSY, UNSPECIFIED (3) Bowel obstruction Code(s): K56.609 - UNSP INTESTNL OBST, UNSP TO PARTIAL VERSUS COMPLETE OBST (4) Renal failure Code(s): N19 - UNSPECIFIED KIDNEY FAILURE (5) Sepsis Code(s): A41.9 - SEPSIS, UNSPECIFIED ORGANISM 6 leukocytosis Ruptured Appendicitis/Fecal Peritonitis s/p ex-lap/ileocecectomy/ileocolic anastamosis s/p Acute Respiratory Failure Severe Sepsis Acute Kidney Injury Lactic Acidosis Cerebral Palsy plan continue abx wbc trending down monitor wbc awaiting gi function close watch rest support rest as per the team
--- NOTE | 2018-10-16 18:32 | PN ---
Progress Note, Physician History of Present Illness: comfortable - Current Medication List Current Medications: Active Medications Acetaminophen (Ofirmev Injection -) 1,000 mg IVPB Q6H PRN PRN Reason: PAIN LEVEL 7 - 10 Benzocaine/Butamben/Tetracaine HCl (Cetacaine [place] -) 1 spray TP DAILY PRN PRN Reason: SORE THROAT Benzocaine/Menthol (Cepacol Lozenge -) 1 each MM PRN PRN PRN Reason: SORE THROAT Chlorhexidine Gluconate (Hibiclens For Decolonization -) 1 applic TP HS [facility] Last Admin: 10/15/18 22:11 Dose: 1 applic Heparin Sodium (Porcine) (Heparin -) 5,000 unit SQ TID [facility] Last Admin: 10/16/18 14:44 Dose: 5,000 unit Potassium Chloride/Dextrose/Sod Cl (D5-1/2ns+20 Meq Kcl -) 20 meq in 1,000 mls @ 100 mls/hr IV ASDIR [facility] Last Admin: 10/16/18 09:48 Dose: 100 mls/hr Piperacillin Sod/Tazobactam (Sod 2.25 gm/ Dextrose) 50 mls @ 100 mls/hr IVPB Q6H-IV [facility]; Protocol Last Admin: 10/16/18 14:44 Dose: 100 mls/hr Metoprolol Tartrate (Lopressor Injection -) 5 mg IVPUSH Q4H PRN PRN Reason: HYPERTENSION Mupirocin (Bactroban Ointment (For Decolonization) -) 1 applic NS BID [facility] Stop: 10/16/18 21:59 Last Admin: 10/16/18 09:48 Dose: 1 applic Pantoprazole Sodium (Protonix Iv) 40 mg IVPUSH DAILY [facility] Last Admin: 10/16/18 09:48 Dose: 40 mg - Objective Vital Signs: Vital Signs Temperature 99 F 10/15/18 18:37 Pulse Rate 95 H 10/16/18 14:47 Respiratory Rate 20 10/16/18 14:47 Blood Pressure 117/81 10/16/18 14:47 O2 Sat by Pulse Oximetry (%) 95 10/16/18 10:00 Constitutional: Yes: No Distress HENT: Yes: Atraumatic Neck: Yes: Supple Cardiovascular: Yes: Regular Rate and Rhythm Respiratory: Yes: CTA Bilaterally Gastrointestinal: Yes: Hypoactive Bowel Sounds Extremities: Yes: WNL Edema: No Neurological: Yes: Alert, Oriented Labs: CBC, BMP 10/15/18 05:30 10/15/18 05:30 INR, PTT INR 1.29 (0.83-1.09) H 10/11/18 20:30 Problem List - Problems (1) Appendix perforation Assessment/Plan: s/p surgery iv abx prn pain meds Code(s): K35.32 - ACUTE APPENDICITIS WITH PERF AND LOC PERITONITIS, W/O ABSCS (2) Bowel obstruction Assessment/Plan: s/p surgery Code(s): K56.609 - UNSP INTESTNL OBST, UNSP TO PARTIAL VERSUS COMPLETE OBST Qualifiers: Intestinal obstruction type: other intestinal obstruction (3) Bowel perforation Code(s): K63.1 - PERFORATION OF INTESTINE (NONTRAUMATIC) (4) Sepsis Assessment/Plan: on abx id on board Code(s): A41.9 - SEPSIS, UNSPECIFIED ORGANISM
[2018-10-16] MEDS: CHLORHEXIDINE GLUCONATE 4% CLEANSER FOR DECOLONIZATION TP SCH (22:17)
[2018-10-17] MEDS ORDERED: PIPERACILLIN/TAZOBACTAM 2.25 GM VIAL IVPB ONE ×4 (03:51→21:51)
[2018-10-17] MEDS ORDERED: DEXTROSE 5%-WATER - 50 ML IVPB ONE ×4 (03:51→21:51)
[2018-10-17] MEDS: PIPERACILLIN/TAZOB 2.25 GM 2.25 GM in DEXTROSE 5%-WATER - 50 ML IVPB SCH ×4 (03:57→21:54)
[2018-10-17] MEDS: HEPARIN NA (PORCINE) 5,000 UNITS/ML 1ML VIAL SQ SCH ×3 (06:52→21:54)
[2018-10-17] MEDS: D5-1/2NS+20 MEQ KCL - 20 MEQ/1,000 ML INFUS.BAG IV SCH (09:35)
[2018-10-17] MEDS: PANTOPRAZOLE SODIUM 40 MG VIAL IVPUSH SCH (09:36)
--- NOTE | 2018-10-17 10:35 | PN ---
Progress Note (short form) - Note Progress Note: Chief Complaint: Events noted, notes reviewed, denies any chest pain or dyspnea , sinus rhythm noted, clear liquid diet initiated/tolerated History of Present Illness: Seen and examined on telemetry. Events noted, notes reviewed, denies any chest pain or dyspnea, sinus rhythm noted, clear liquid diet initiated/tolerated Echocardiography 10/12/2018 Normal bi-ventricular size and function, mild MR, trace DC - Current Medication List Current Medications Acetaminophen (Ofirmev Injection -) 1,000 mg IVPB Q6H PRN PRN Reason: PAIN LEVEL 7 - 10 Benzocaine/Butamben/Tetracaine HCl (Cetacaine [place] -) 1 spray TP DAILY PRN PRN Reason: SORE THROAT Benzocaine/Menthol (Cepacol Lozenge -) 1 each MM PRN PRN PRN Reason: SORE THROAT Chlorhexidine Gluconate (Hibiclens For Decolonization -) 1 applic TP HS [facility] Last Admin: 10/16/18 22:17 Dose: 1 applic Heparin Sodium (Porcine) (Heparin -) 5,000 unit SQ TID [facility] Last Admin: 10/17/18 06:52 Dose: 5,000 unit Potassium Chloride/Dextrose/Sod Cl (D5-1/2ns+20 Meq Kcl -) 20 meq in 1,000 mls @ 100 mls/hr IV ASDIR [facility] Last Admin: 10/17/18 09:35 Dose: 100 mls/hr Piperacillin Sod/Tazobactam (Sod 2.25 gm/ Dextrose) 50 mls @ 100 mls/hr IVPB Q6H-IV [facility]; Protocol Last Admin: 10/17/18 09:35 Dose: 100 mls/hr Metoprolol Tartrate (Lopressor Injection -) 5 mg IVPUSH Q4H PRN PRN Reason: HYPERTENSION Pantoprazole Sodium (Protonix Iv) 40 mg IVPUSH DAILY [facility] Last Admin: 10/17/18 09:36 Dose: 40 mg Review of Systems Cardiovascular: As noted above Respiratory: denies: Cough or Sputum Production Gastrointestinal: denies: Nausea, Vomiting, Diarrhea, Constipation Musculoskeletal: No Symptoms Reported Endocrine: No Symptoms Reported - Objective Vital Signs: Last Vital Signs Temp Pulse Resp BP Pulse Ox 98.1 F 84 20 137/77 98 10/17/18 03:00 10/17/18 06:30 10/17/18 06:30 10/17/18 06:30 10/16/18 23:00 Intake & Output 10/14/18 10/15/18 10/16/18 10/17/18 23:59 23:59 23:59 23:59 Intake Total 2700 2400 1200 100 Output Total 3100 2000 1000 600 Balance -400 400 200 -500 Weight 190 lb 14.725 oz 191 lb 9.6 oz 188 lb 9 oz Neck: Supple Negative JVD No Bruit Cardiovascular: S1 S2 Regualr Rate Rhythm Respiratory: Diminished Breath Sounds at the Bases Gastrointestinal: Soft Benign Hypoactive Bowel Sounds Ext: Negative Edema Labs: CBC, BMP 10/15/18 05:30 10/15/18 05:30 Hepatic Panel Total Bilirubin 1.3 mg/dL (0.2-1) H 10/15/18 05:30 Direct Bilirubin 1.0 mg/dL (0.0-0.2) H 10/15/18 05:30 AST 38 U/L (15-37) H 10/15/18 05:30 ALT 24 U/L (13-61) 10/15/18 05:30 Alkaline Phosphatase 60 U/L (45-117) 10/15/18 05:30 Albumin 1.5 g/dl (3.4-5.0) L 10/15/18 05:30 INR, PTT INR 1.29 (0.83-1.09) H 10/11/18 20:30 Assessment/Plan ASSESSMENT: 1. Pneumo-peritoneum due to bowel perforation/fecal peritonitis/SBO POD#6 post Exp-Lap, ileocecetomy for a ruptured appendicitis 2. PAF [id number] score of 0, PSVT currently in sinus rhythm 3. Leukocytosis, persistent 4. Post acute respiratory failure 5. History of Cerebral palsy 6. Acute renal insufficiency due to sepsis syndrome/resolved PLAN: 1. Initiate PO Lopressor 2. No indications for long tern A/C considering the above noted [id number] score of 0, recommend ASA unless contraindicated 3. Antibiotic as per the primary team 4. OOB/ambulate Martin Rubio M.D.
[2018-10-17] MEDS: METOPROLOL TARTRATE 25 MG TABLET (FP) PO SCH ×3 (11:41→21:59)
--- NOTE | 2018-10-17 14:07 | PN ---
Progress Note, Physician History of Present Illness: patient says he is not feeling well says very tired - Current Medication List Current Medications: Active Medications Acetaminophen (Ofirmev Injection -) 1,000 mg IVPB Q6H PRN PRN Reason: PAIN LEVEL 7 - 10 Benzocaine/Butamben/Tetracaine HCl (Cetacaine [place] -) 1 spray TP DAILY PRN PRN Reason: SORE THROAT Benzocaine/Menthol (Cepacol Lozenge -) 1 each MM PRN PRN PRN Reason: SORE THROAT Chlorhexidine Gluconate (Hibiclens For Decolonization -) 1 applic TP HS [facility] Last Admin: 10/16/18 22:17 Dose: 1 applic Heparin Sodium (Porcine) (Heparin -) 5,000 unit SQ TID [facility] Last Admin: 10/17/18 13:26 Dose: 5,000 unit Potassium Chloride/Dextrose/Sod Cl (D5-1/2ns+20 Meq Kcl -) 20 meq in 1,000 mls @ 100 mls/hr IV ASDIR [facility] Last Admin: 10/17/18 09:35 Dose: 100 mls/hr Piperacillin Sod/Tazobactam (Sod 2.25 gm/ Dextrose) 50 mls @ 100 mls/hr IVPB Q6H-IV [facility]; Protocol Last Admin: 10/17/18 09:35 Dose: 100 mls/hr Metoprolol Tartrate (Lopressor -) 25 mg PO BID [facility] Last Admin: 10/17/18 11:41 Dose: 25 mg Pantoprazole Sodium (Protonix Iv) 40 mg IVPUSH DAILY [facility] Last Admin: 10/17/18 09:36 Dose: 40 mg - Objective Vital Signs: Vital Signs Temperature 98.3 F 10/17/18 10:56 Pulse Rate 88 10/17/18 10:56 Respiratory Rate 18 10/17/18 10:56 Blood Pressure 137/84 10/17/18 10:56 O2 Sat by Pulse Oximetry (%) 98 10/17/18 09:00 Constitutional: Yes: Calm, Mild Distress Cardiovascular: Yes: S1, S2 Respiratory: Yes: Regular, Poor Air Entry (at the bases) Gastrointestinal: Yes: Distention, Hypoactive Bowel Sounds, Other (tympanic) Musculoskeletal: Yes: WNL Extremities: Yes: WNL Wound/Incision: Yes: Dressing Dry and Intact Neurological: Yes: Alert, Oriented Psychiatric: Yes: Alert, Oriented Labs: CBC, BMP 10/15/18 05:30 10/15/18 05:30 INR, PTT INR 1.29 (0.83-1.09) H 10/11/18 20:30 Assessment/Plan Problem List - Problems (1) Bowel perforation Code(s): K63.1 - PERFORATION OF INTESTINE (NONTRAUMATIC) (2) Cerebral palsy Code(s): G80.9 - CEREBRAL PALSY, UNSPECIFIED (3) Bowel obstruction Code(s): K56.609 - UNSP INTESTNL OBST, UNSP TO PARTIAL VERSUS COMPLETE OBST (4) Renal failure Code(s): N19 - UNSPECIFIED KIDNEY FAILURE (5) Sepsis Code(s): A41.9 - SEPSIS, UNSPECIFIED ORGANISM 6 leukocytosis Ruptured Appendicitis/Fecal Peritonitis s/p ex-lap/ileocecectomy/ileocolic anastamosis s/p Acute Respiratory Failure Severe Sepsis Acute Kidney Injury Lactic Acidosis Cerebral Palsy plan continue abx please do labs and check the wbc patient belly is distended he might need to have the ng tube back again close watch rest as per the team
[2018-10-17] MEDS: ONDANSETRON 4 MG/2 ML VIAL IVPUSH PRN (16:06)
--- NOTE | 2018-10-17 18:17 | PN ---
Progress Note, Physician History of Present Illness: events noted passing gas had BM - Current Medication List Current Medications: Active Medications Acetaminophen (Ofirmev Injection -) 1,000 mg IVPB Q6H PRN PRN Reason: PAIN LEVEL 7 - 10 Benzocaine/Butamben/Tetracaine HCl (Cetacaine [place] -) 1 spray TP DAILY PRN PRN Reason: SORE THROAT Benzocaine/Menthol (Cepacol Lozenge -) 1 each MM PRN PRN PRN Reason: SORE THROAT Chlorhexidine Gluconate (Hibiclens For Decolonization -) 1 applic TP HS [facility] Last Admin: 10/16/18 22:17 Dose: 1 applic Heparin Sodium (Porcine) (Heparin -) 5,000 unit SQ TID [facility] Last Admin: 10/17/18 13:26 Dose: 5,000 unit Potassium Chloride/Dextrose/Sod Cl (D5-1/2ns+20 Meq Kcl -) 20 meq in 1,000 mls @ 100 mls/hr IV ASDIR [facility] Last Admin: 10/17/18 09:35 Dose: 100 mls/hr Piperacillin Sod/Tazobactam (Sod 2.25 gm/ Dextrose) 50 mls @ 100 mls/hr IVPB Q6H-IV [facility]; Protocol Last Admin: 10/17/18 14:44 Dose: 100 mls/hr Metoprolol Tartrate (Lopressor -) 25 mg PO BID [facility] Last Admin: 10/17/18 11:41 Dose: 25 mg Ondansetron HCl (Zofran Injection) 4 mg IVPUSH Q4H PRN PRN Reason: NAUSEA AND/OR VOMITING Last Admin: 10/17/18 16:06 Dose: 4 mg Pantoprazole Sodium (Protonix Iv) 40 mg IVPUSH DAILY [facility] Last Admin: 10/17/18 09:36 Dose: 40 mg - Objective Vital Signs: Vital Signs Temperature 98.9 F 10/17/18 17:55 Pulse Rate 96 H 10/17/18 17:55 Respiratory Rate 22 H 10/17/18 17:55 Blood Pressure 123/80 10/17/18 17:55 O2 Sat by Pulse Oximetry (%) 98 10/17/18 09:00 Constitutional: Yes: No Distress HENT: Yes: Atraumatic Neck: Yes: Supple Cardiovascular: Yes: Regular Rate and Rhythm Respiratory: Yes: CTA Bilaterally Gastrointestinal: Yes: Hypoactive Bowel Sounds Extremities: Yes: WNL Edema: No Neurological: Yes: Alert, Oriented Labs: CBC, BMP 10/15/18 05:30 10/15/18 05:30 INR, PTT INR 1.29 (0.83-1.09) H 10/11/18 20:30 Problem List - Problems (1) Appendix perforation Assessment/Plan: s/p surgery iv abx prn pain meds Code(s): K35.32 - ACUTE APPENDICITIS WITH PERF AND LOC PERITONITIS, W/O ABSCS (2) Bowel obstruction Assessment/Plan: s/p surgery Code(s): K56.609 - UNSP INTESTNL OBST, UNSP TO PARTIAL VERSUS COMPLETE OBST Qualifiers: Intestinal obstruction type: other intestinal obstruction (3) Bowel perforation Code(s): K63.1 - PERFORATION OF INTESTINE (NONTRAUMATIC) (4) Sepsis Assessment/Plan: on abx id on board Code(s): A41.9 - SEPSIS, UNSPECIFIED ORGANISM
--- NOTE | 2018-10-17 19:59 | PN ---
Progress Note, Physician Chief Complaint: abdominal pain History of Present Illness: 48 yo male PMH CP here with his mother c/o abd pain n/v. states abd pain started one week ago. initially with mild discomfort and nausea, over the last 2 days pain has progressed to vomiting . He has been stable post operatively. - Current Medication List Current Medications: Active Medications Acetaminophen (Ofirmev Injection -) 1,000 mg IVPB Q6H PRN PRN Reason: PAIN LEVEL 7 - 10 Benzocaine/Butamben/Tetracaine HCl (Cetacaine [place] -) 1 spray TP DAILY PRN PRN Reason: SORE THROAT Benzocaine/Menthol (Cepacol Lozenge -) 1 each MM PRN PRN PRN Reason: SORE THROAT Chlorhexidine Gluconate (Hibiclens For Decolonization -) 1 applic TP HS [facility] Last Admin: 10/16/18 22:17 Dose: 1 applic Heparin Sodium (Porcine) (Heparin -) 5,000 unit SQ TID [facility] Last Admin: 10/17/18 13:26 Dose: 5,000 unit Potassium Chloride/Dextrose/Sod Cl (D5-1/2ns+20 Meq Kcl -) 20 meq in 1,000 mls @ 100 mls/hr IV ASDIR [facility] Last Admin: 10/17/18 09:35 Dose: 100 mls/hr Piperacillin Sod/Tazobactam (Sod 2.25 gm/ Dextrose) 50 mls @ 100 mls/hr IVPB Q6H-IV [facility]; Protocol Last Admin: 10/17/18 14:44 Dose: 100 mls/hr Metoprolol Tartrate (Lopressor -) 25 mg PO BID [facility] Last Admin: 10/17/18 11:41 Dose: 25 mg Ondansetron HCl (Zofran Injection) 4 mg IVPUSH Q4H PRN PRN Reason: NAUSEA AND/OR VOMITING Last Admin: 10/17/18 16:06 Dose: 4 mg Pantoprazole Sodium (Protonix Iv) 40 mg IVPUSH DAILY [facility] Last Admin: 10/17/18 09:36 Dose: 40 mg - Objective Vital Signs: Vital Signs Temperature 98.9 F 10/17/18 17:55 Pulse Rate 96 H 10/17/18 17:55 Respiratory Rate 22 H 10/17/18 17:55 Blood Pressure 123/80 10/17/18 17:55 O2 Sat by Pulse Oximetry (%) 98 10/17/18 09:00 Vital Signs Period Temp Pulse Resp BP Sys/Osorio Pulse Ox Last 24 Hr 98.2 F-100.5 F 89-108 19-35 94-136/56-85 92-98 Constitutional: Yes: Well Nourished, No Distress, Calm Eyes: Yes: Conjunctiva Clear, EOM Intact HENT: Yes: Atraumatic, Normocephalic Neck: Yes: Supple, Trachea Midline Cardiovascular: Yes: Regular Rate and Rhythm, S1, S2 Respiratory: Yes: Regular, CTA Bilaterally Gastrointestinal: Yes: Normal Bowel Sounds, Soft. No: Tenderness ...Rectal Exam: Yes: Deferred Genitourinary: No: CVA Tenderness - Left, CVA Tenderness - Right Breast(s): No: Discharge from Nipple, Nipple Inversion, Skin Changes Musculoskeletal: No: Joint Swelling, Muscle Weakness Extremities: Yes: Cool, Cyanosis Edema: No Peripheral Pulses WNL: Yes Peripheral Pulses: Left Radial: 2+, Right Radial: 2+, Left Doralis Pedis: 2+, Right Dorsalis Pedis: 2+, Left Femoral: 2+, Right Femoral: 2+ Integumentary: No: Jaundice, Rash, Skin Tear Wound/Incision: Yes: Clean/Dry, [place] Intact, Dressing Dry and Intact, Dressing Removed, Unapproximated Neurological: Yes: Alert, Oriented Psychiatric: Yes: Alert, Oriented Labs: INR, PTT INR 1.29 (0.83-1.09) H 10/11/18 20:30 Problem List - Problems (1) Bowel perforation Assessment/Plan: 48yo male with peritonitis and perforated viscus that will need surgical exploration POD#6 s/p Exp Lap, ileocecetomy for a ruptured appendicitis NPO and IVF hydration NGT to LCWS IV antibiotics per ID Adequate analgesia OOB and ambulate will follow This patient is critically ill. Time spent reviewing chart, examining patient, talking with providers and/or family and documentation is 35 minutes. Code(s): K63.1 - PERFORATION OF INTESTINE (NONTRAUMATIC) (2) Cerebral palsy Code(s): G80.9 - CEREBRAL PALSY, UNSPECIFIED (3) Bowel obstruction Code(s): K56.609 - UNSP INTESTNL OBST, UNSP TO PARTIAL VERSUS COMPLETE OBST Qualifiers: Intestinal obstruction type: other intestinal obstruction (4) Renal failure Code(s): N19 - UNSPECIFIED KIDNEY FAILURE Qualifiers: Renal failure chronicity: acute (5) Sepsis Code(s): A41.9 - SEPSIS, UNSPECIFIED ORGANISM
[2018-10-17 20:13] LABS: BASO % 0.3 % (0-2.0); EOS % 0.3 % (0-4.5); HEMATOCRIT 38.5 % (35.4-49); HEMOGLOBIN 13.2 GM/dL (11.7-16.9); LYMPH % 4.4 % (8-40); MCHC 34.2 g/dl (32.0-35.9); MEAN CELL VOLUME 90.6 fl (80-96); MEAN PLT VOLUME 8.8 fl (7.5-11.1); MONO % 7.4 % (3.8-10.2); NEUT % 87.6 % (42.8-82.8); PLATELET COUNT 355 K/MM3 (134-434); RBC 4.25 M/mm3 (4.00-5.60); RDW 14.7 % (11.9-15.9)
[2018-10-17 20:20] LABS: WHITE BLOOD COUNT 30.7 K/mm3 (4.0-10.0)
[2018-10-17 20:30] LABS: ALBUMIN 1.9 g/dl (3.4-5.0); ALK PHOS 122 U/L (45-117); ANION GAP 8 MMOL/L (8-16); BILIRUBIN,TOTAL 1.4 mg/dL (0.2-1); BLOOD UREA NITROGEN 11 mg/dL (7-18); CALCIUM 7.3 mg/dL (8.5-10.1); CHLORIDE 105 mmol/L (98-107); CO2 22 mmol/L (21-32); CREATININE 0.9 mg/dL (0.55-1.3); GLUCOSE,RANDOM 118 mg/dL (74-106); POTASSIUM 4.5 mmol/L (3.5-5.1); SGOT/AST 32 U/L (15-37); SGPT/ALT 46 U/L (13-61); SODIUM 136 mmol/L (136-145); TOT PROT 5.4 g/dl (6.4-8.2)
[2018-10-17 21:10] LABS: PLATELET ESTIMATE INCREASED
[2018-10-17] MEDS: CHLORHEXIDINE GLUCONATE 4% CLEANSER FOR DECOLONIZATION TP SCH (21:55)
[2018-10-18] MEDS ORDERED: PIPERACILLIN/TAZOBACTAM 2.25 GM VIAL IVPB ONE ×4 (01:04→21:59)
[2018-10-18] MEDS ORDERED: DEXTROSE 5%-WATER - 50 ML IVPB ONE ×4 (01:05→21:59)
[2018-10-18] MEDS: D5-1/2NS+20 MEQ KCL - 20 MEQ/1,000 ML INFUS.BAG IV SCH ×3 (02:30→17:34)
[2018-10-18] MEDS: PIPERACILLIN/TAZOB 2.25 GM 2.25 GM in DEXTROSE 5%-WATER - 50 ML IVPB SCH ×4 (03:37→22:04)
[2018-10-18] MEDS: HEPARIN NA (PORCINE) 5,000 UNITS/ML 1ML VIAL SQ SCH ×3 (06:30→22:05)
[2018-10-18 06:38] LABS: BASO % 0.2 % (0-2.0); EOS % 0.4 % (0-4.5); HEMATOCRIT 35.7 % (35.4-49); HEMOGLOBIN 12.5 GM/dL (11.7-16.9); LYMPH % 4.9 % (8-40); MCH 31.6 pg (25.7-33.7); MCHC 34.9 g/dl (32.0-35.9); MEAN CELL VOLUME 90.5 fl (80-96); MEAN PLT VOLUME 9.2 fl (7.5-11.1); MONO % 11.9 % (3.8-10.2); NEUT % 82.6 % (42.8-82.8); PLATELET COUNT 346 K/MM3 (134-434); RBC 3.95 M/mm3 (4.00-5.60); RDW 14.5 % (11.9-15.9); WHITE BLOOD COUNT 23.9 K/mm3 (4.0-10.0)
[2018-10-18 06:40] LABS: ALBUMIN 1.8 g/dl (3.4-5.0); ALK PHOS 105 U/L (45-117); ANION GAP 6 MMOL/L (8-16); BILIRUBIN,TOTAL 1.5 mg/dL (0.2-1); BLOOD UREA NITROGEN 14 mg/dL (7-18); CALCIUM 7.7 mg/dL (8.5-10.1); CHLORIDE 104 mmol/L (98-107); CO2 24 mmol/L (21-32); CREATININE 0.9 mg/dL (0.55-1.3); GLUCOSE,RANDOM 123 mg/dL (74-106); POTASSIUM 4.6 mmol/L (3.5-5.1); SGOT/AST 22 U/L (15-37); SGPT/ALT 40 U/L (13-61); SODIUM 134 mmol/L (136-145)
--- NOTE | 2018-10-18 10:53 | PN ---
Progress Note, Physician Chief Complaint: Distended abdomen attempting to place NG History of Present Illness: Patient was seen and examined. Awake and alert. Chart was reviewed Denies chest pain, SOB or palpitations - Current Medication List Current Medications: Active Medications Acetaminophen (Ofirmev Injection -) 1,000 mg IVPB Q6H PRN PRN Reason: PAIN LEVEL 7 - 10 Benzocaine/Butamben/Tetracaine HCl (Cetacaine [place] -) 1 spray TP DAILY PRN PRN Reason: SORE THROAT Benzocaine/Menthol (Cepacol Lozenge -) 1 each MM PRN PRN PRN Reason: SORE THROAT Chlorhexidine Gluconate (Hibiclens For Decolonization -) 1 applic TP HS [facility] Last Admin: 10/17/18 21:55 Dose: 1 applic Heparin Sodium (Porcine) (Heparin -) 5,000 unit SQ TID [facility] Last Admin: 10/18/18 06:30 Dose: 5,000 unit Potassium Chloride/Dextrose/Sod Cl (D5-1/2ns+20 Meq Kcl -) 20 meq in 1,000 mls @ 100 mls/hr IV ASDIR [facility] Last Admin: 10/18/18 02:30 Dose: 100 mls/hr Piperacillin Sod/Tazobactam (Sod 2.25 gm/ Dextrose) 50 mls @ 100 mls/hr IVPB Q6H-IV [facility]; Protocol Last Admin: 10/18/18 03:37 Dose: 100 mls/hr Metoprolol Tartrate (Lopressor -) 25 mg PO BID [facility] Last Admin: 10/17/18 21:59 Dose: Not Given Ondansetron HCl (Zofran Injection) 4 mg IVPUSH Q4H PRN PRN Reason: NAUSEA AND/OR VOMITING Last Admin: 10/17/18 16:06 Dose: 4 mg Pantoprazole Sodium (Protonix Iv) 40 mg IVPUSH DAILY [facility] Last Admin: 10/17/18 09:36 Dose: 40 mg - Objective Vital Signs: Vital Signs Temperature 98.6 F 10/18/18 06:00 Pulse Rate 108 H 10/18/18 08:00 Respiratory Rate 35 H 10/18/18 08:00 Blood Pressure 123/67 10/18/18 08:00 O2 Sat by Pulse Oximetry (%) 98 10/17/18 22:00 Eyes: Yes: PERRL HENT: Yes: Atraumatic Neck: Yes: Supple Cardiovascular: Yes: Regular Rate and Rhythm, Tachycardia, S1, S2 Respiratory: Yes: Diminished Gastrointestinal: Yes: Distention, Other (post op) Edema: No Labs: CBC, BMP 10/18/18 05:30 10/18/18 05:30 Problem List - Problems (1) PSVT (paroxysmal supraventricular tachycardia) Code(s): I47.1 - SUPRAVENTRICULAR TACHYCARDIA (2) Sinus tachycardia Code(s): R00.0 - TACHYCARDIA, UNSPECIFIED (3) Appendix perforation Code(s): K35.32 - ACUTE APPENDICITIS WITH PERF AND LOC PERITONITIS, W/O ABSCS (4) Bowel obstruction Code(s): K56.609 - UNSP INTESTNL OBST, UNSP TO PARTIAL VERSUS COMPLETE OBST Qualifiers: Intestinal obstruction type: other intestinal obstruction (5) Bowel perforation Code(s): K63.1 - PERFORATION OF INTESTINE (NONTRAUMATIC) (6) Cerebral palsy Code(s): G80.9 - CEREBRAL PALSY, UNSPECIFIED (7) Renal failure Code(s): N19 - UNSPECIFIED KIDNEY FAILURE Qualifiers: Renal failure chronicity: acute (8) Sepsis Code(s): A41.9 - SEPSIS, UNSPECIFIED ORGANISM Assessment/Plan 1. Pneumo-peritoneum due to bowel perforation/fecal peritonitis/SBO POD#7 post Exp-Lap, ileocecetomy for a ruptured appendicitis 2. PAF [id number] score of 0 and PSVT currently in sinus rhythm 3. Leukocytosis, persistent 4. Post acute respiratory failure 5. History of Cerebral palsy 6. Acute renal insufficiency due to sepsis syndrome/resolved PLAN: 1. NG decompression 2. No indications for long tern anticoagulation considering the above noted [id number] score of 0 and recommend ASA unless contraindicated 3. Antibiotics Further plans are to follow Jet Blank MD
[2018-10-18] MEDS: PANTOPRAZOLE SODIUM 40 MG VIAL IVPUSH SCH (10:55)
[2018-10-18] MEDS ORDERED: PT OWN MED DRAWER 7, Y5N ONE (12:00)
[2018-10-18] MEDS: METOPROLOL TARTRATE 25 MG TABLET (FP) PO SCH ×2 (12:55→22:05)
[2018-10-18 13:52] LABS: ANISOCYTOSIS 0; HELMET CELLS 0; HOWELL-JOLLY BODIES 0; MACROCYTOSIS 0; OVALOCYTE 0; PLATELET ESTIMATE NORMAL; ROULEAU 0; SICKELED CELLS 0; TARGET CELLS 0; TEAR DROP CELLS 0; TOXIC GRANULATION 0
--- NOTE | 2018-10-18 14:05 | PN ---
Progress Note (short form) - Note Progress Note: Patient seen and examined. NGT replaced due to ileus. OBJECTIVE: Intake & Output 10/15/18 10/16/18 10/17/18 10/18/18 23:59 23:59 23:59 23:59 Intake Total 2400 1200 1200 1250 Output Total 2000 1000 1400 Balance 400 200 -200 1250 Weight 191 lb 9.6 oz 188 lb 9 oz 190 lb Last Vital Signs Temp Pulse Resp BP Pulse Ox 98.6 F 89 34 H 118/69 98 10/18/18 06:00 10/18/18 10:00 10/18/18 10:00 10/18/18 10:00 10/17/18 22:00 Active Medications Acetaminophen (Ofirmev Injection -) 1,000 mg IVPB Q6H PRN PRN Reason: PAIN LEVEL 7 - 10 Benzocaine/Butamben/Tetracaine HCl (Cetacaine [place] -) 1 spray TP DAILY PRN PRN Reason: SORE THROAT Benzocaine/Menthol (Cepacol Lozenge -) 1 each MM PRN PRN PRN Reason: SORE THROAT Chlorhexidine Gluconate (Hibiclens For Decolonization -) 1 applic TP HS [facility] Last Admin: 10/17/18 21:55 Dose: 1 applic Heparin Sodium (Porcine) (Heparin -) 5,000 unit SQ TID [facility] Last Admin: 10/18/18 06:30 Dose: 5,000 unit Potassium Chloride/Dextrose/Sod Cl (D5-1/2ns+20 Meq Kcl -) 20 meq in 1,000 mls @ 100 mls/hr IV ASDIR [facility] Last Admin: 10/18/18 12:54 Dose: 100 mls/hr Piperacillin Sod/Tazobactam (Sod 2.25 gm/ Dextrose) 50 mls @ 100 mls/hr IVPB Q6H-IV [facility]; Protocol Last Admin: 10/18/18 10:55 Dose: 100 mls/hr Metoprolol Tartrate (Lopressor -) 25 mg PO BID [facility] Last Admin: 10/18/18 12:55 Dose: Not Given Ondansetron HCl (Zofran Injection) 4 mg IVPUSH Q4H PRN PRN Reason: NAUSEA AND/OR VOMITING Last Admin: 10/17/18 16:06 Dose: 4 mg Pantoprazole Sodium (Protonix Iv) 40 mg IVPUSH DAILY [facility] Last Admin: 10/18/18 10:55 Dose: 40 mg Gen: NAD at rest Heart: RRR Lung: decreased breath sounds at the bases Abd: distended, (+) dressings intact, Hypoactive BS Ext: (+) edema Laboratory Results - last 24 hr 10/17/18 10/17/18 10/18/18 19:50 19:50 05:30 WBC 30.7 H* 23.9 H RBC 4.25 3.95 L Hgb 13.2 12.5 Hct 38.5 D 35.7 MCV 90.6 90.5 MCH 31.0 31.6 MCHC 34.2 34.9 RDW 14.7 14.5 Plt Count 355 D 346 MPV 8.8 9.2 Absolute Neuts (auto) 26.9 H 19.8 H Total Counted 100 Neutrophils % 87.6 H 82.6 Neutrophils % (Manual) 79.0 74.0 Band Neutrophils % 3.0 2.1 Lymphocytes % 4.4 L D 4.9 L Lymphocytes % (Manual) 5.0 L D 5.2 L Monocytes % 7.4 11.9 H Monocytes % (Manual) 9 14 H Eosinophils % 0.3 0.4 Eosinophils % (Manual) 1.1 D Basophils % 0.3 0.2 Basophils % (Manual) 0.0 Myelocytes % (Man) 1 D 1 Promyelocytes % (Man) 0 Blast Cells % (Manual) 0 Nucleated RBC % 0 0 Metamyelocytes 3 H 0 D Hypochromia 0 Toxic Granulation 0 Dohle Bodies 0 Platelet Estimate Increased Normal Platelet Comment No clumping noted Polychromasia 0 Poikilocytosis 0 Basophilic Stippling 0 Anisocytosis 0 Microcytosis 0 Macrocytosis 0 Spherocytes 0 Sickle Cells 0 Target Cells 0 Tear Drop Cells 0 Ovalocytes 0 Stomatocytes 0 Helmet Cells 0 [place]ma[place] Bodies 0 [place] Rings 0 [place] Cells 0 Acanthocytes (Spur) 0 Rouleaux 0 Fragmented RBCs 0 Schistocytes 0 Sodium 136 Potassium 4.5 Chloride 105 Carbon Dioxide 22 Anion Gap 8 BUN 11 Creatinine 0.9 Creat Clearance w eGFR 89.69 Random Glucose 118 H Calcium 7.3 L Total Bilirubin 1.4 H AST 32 ALT 46 Alkaline Phosphatase 122 H Total Protein 5.4 L Albumin 1.9 L 10/18/18 05:30 WBC RBC Hgb Hct MCV MCH MCHC RDW Plt Count MPV Absolute Neuts (auto) Total Counted Neutrophils % Neutrophils % (Manual) Band Neutrophils % Lymphocytes % Lymphocytes % (Manual) Monocytes % Monocytes % (Manual) Eosinophils % Eosinophils % (Manual) Basophils % Basophils % (Manual) Myelocytes % (Man) Promyelocytes % (Man) Blast Cells % (Manual) Nucleated RBC % Metamyelocytes Hypochromia Toxic Granulation Dohle Bodies Platelet Estimate Platelet Comment Polychromasia Poikilocytosis Basophilic Stippling Anisocytosis Microcytosis Macrocytosis Spherocytes Sickle Cells Target Cells Tear Drop Cells Ovalocytes Stomatocytes Helmet Cells Mcmahon-[place] Bodies [place] Rings Velma Cells Acanthocytes (Spur) Rouleaux Fragmented RBCs Schistocytes Sodium 134 L Potassium 4.6 Chloride 104 Carbon Dioxide 24 Anion Gap 6 L BUN 14 Creatinine 0.9 Creat Clearance w eGFR 89.69 Random Glucose 123 H Calcium 7.7 L Total Bilirubin 1.5 H AST 22 ALT 40 Alkaline Phosphatase 105 Total Protein 5.0 L Albumin 1.8 L ASSESSMENT AND PLAN: Ruptured Appendicitis/Fecal Peritonitis s/p ex-lap/ileocecectomy/ileocolic anastamosis s/p Acute Respiratory Failure Severe Sepsis Acute Kidney Injury Lactic Acidosis Cerebral Palsy - NGT replaced - ABX - IVF - monitor urine output, creatinine - replete and monitor lytes - pain control - incentive spirometry - await return of bowel function - rehab/PT - OOB to chair - DVT prophylaxis Dr Yang
--- NOTE | 2018-10-18 18:20 | PN ---
Progress Note, Physician History of Present Illness: feeling better - Current Medication List Current Medications: Active Medications Acetaminophen (Ofirmev Injection -) 1,000 mg IVPB Q6H PRN PRN Reason: PAIN LEVEL 7 - 10 Benzocaine/Butamben/Tetracaine HCl (Cetacaine [place] -) 1 spray TP DAILY PRN PRN Reason: SORE THROAT Benzocaine/Menthol (Cepacol Lozenge -) 1 each MM PRN PRN PRN Reason: SORE THROAT Chlorhexidine Gluconate (Hibiclens For Decolonization -) 1 applic TP HS [facility] Last Admin: 10/17/18 21:55 Dose: 1 applic Heparin Sodium (Porcine) (Heparin -) 5,000 unit SQ TID [facility] Last Admin: 10/18/18 15:15 Dose: 5,000 unit Potassium Chloride/Dextrose/Sod Cl (D5-1/2ns+20 Meq Kcl -) 20 meq in 1,000 mls @ 100 mls/hr IV ASDIR [facility] Last Admin: 10/18/18 17:34 Dose: 100 mls/hr Piperacillin Sod/Tazobactam (Sod 2.25 gm/ Dextrose) 50 mls @ 100 mls/hr IVPB Q6H-IV [facility]; Protocol Last Admin: 10/18/18 15:15 Dose: 100 mls/hr Metoprolol Tartrate (Lopressor -) 25 mg PO BID [facility] Last Admin: 10/18/18 12:55 Dose: Not Given Ondansetron HCl (Zofran Injection) 4 mg IVPUSH Q4H PRN PRN Reason: NAUSEA AND/OR VOMITING Last Admin: 10/17/18 16:06 Dose: 4 mg Pantoprazole Sodium (Protonix Iv) 40 mg IVPUSH DAILY [facility] Last Admin: 10/18/18 10:55 Dose: 40 mg - Objective Vital Signs: Vital Signs Temperature 100.5 F H 10/18/18 14:00 Pulse Rate 108 H 10/18/18 14:00 Respiratory Rate 10/18/18 14:00 Blood Pressure 115/62 10/18/18 14:00 O2 Sat by Pulse Oximetry (%) 98 10/17/18 22:00 Constitutional: Yes: No Distress HENT: Yes: Atraumatic Neck: Yes: Supple Cardiovascular: Yes: Regular Rate and Rhythm Respiratory: Yes: CTA Bilaterally Gastrointestinal: Yes: Distention, Hypoactive Bowel Sounds Extremities: Yes: WNL Edema: No Peripheral Pulses WNL: Yes Neurological: Yes: Alert, Oriented Labs: CBC, BMP 10/18/18 05:30 10/18/18 05:30 INR, PTT INR 1.29 (0.83-1.09) H 10/11/18 20:30 Problem List - Problems (1) Appendix perforation Assessment/Plan: s/p surgery iv abx prn pain meds ngt in place now Code(s): K35.32 - ACUTE APPENDICITIS WITH PERF AND LOC PERITONITIS, W/O ABSCS (2) Bowel obstruction Assessment/Plan: s/p surgery Code(s): K56.609 - UNSP INTESTNL OBST, UNSP TO PARTIAL VERSUS COMPLETE OBST Qualifiers: Intestinal obstruction type: other intestinal obstruction (3) Bowel perforation Code(s): K63.1 - PERFORATION OF INTESTINE (NONTRAUMATIC) (4) Sepsis Assessment/Plan: on abx id on board Code(s): A41.9 - SEPSIS, UNSPECIFIED ORGANISM
[2018-10-18] MEDS: CHLORHEXIDINE GLUCONATE 4% CLEANSER FOR DECOLONIZATION TP SCH (22:04)
[2018-10-19] MEDS ORDERED: PIPERACILLIN/TAZOBACTAM 2.25 GM VIAL IVPB ONE ×4 (03:38→21:26)
[2018-10-19] MEDS ORDERED: DEXTROSE 5%-WATER - 50 ML IVPB ONE ×4 (03:39→21:26)
[2018-10-19] MEDS: D5-1/2NS+20 MEQ KCL - 20 MEQ/1,000 ML INFUS.BAG IV SCH ×2 (03:44→10:09)
[2018-10-19] MEDS: PIPERACILLIN/TAZOB 2.25 GM 2.25 GM in DEXTROSE 5%-WATER - 50 ML IVPB SCH ×4 (03:44→21:57)
[2018-10-19] MEDS: HEPARIN NA (PORCINE) 5,000 UNITS/ML 1ML VIAL SQ SCH ×3 (05:44→21:57)
[2018-10-19 06:54] LABS: BASO % 0.1 % (0-2.0); EOS % 0.6 % (0-4.5); HEMATOCRIT 31.5 % (35.4-49); HEMOGLOBIN 10.7 GM/dL (11.7-16.9); LYMPH % 9.3 % (8-40); MCH 30.6 pg (25.7-33.7); MEAN CELL VOLUME 90.3 fl (80-96); MEAN PLT VOLUME 8.5 fl (7.5-11.1); MONO % 12.7 % (3.8-10.2); NEUT % 77.3 % (42.8-82.8); PLATELET COUNT 383 K/MM3 (134-434); RBC 3.49 M/mm3 (4.00-5.60); RDW 14.4 % (11.9-15.9); WHITE BLOOD COUNT 17.7 K/mm3 (4.0-10.0)
[2018-10-19 07:17] LABS: ALBUMIN 1.6 g/dl (3.4-5.0); ALK PHOS 99 U/L (45-117); ANION GAP 5 MMOL/L (8-16); BILIRUBIN,TOTAL 1.1 mg/dL (0.2-1); BLOOD UREA NITROGEN 15 mg/dL (7-18); CALCIUM 7.6 mg/dL (8.5-10.1); CHLORIDE 105 mmol/L (98-107); CO2 25 mmol/L (21-32); CREATININE 0.9 mg/dL (0.55-1.3); GLUCOSE,RANDOM 111 mg/dL (74-106); POTASSIUM 4.4 mmol/L (3.5-5.1); SGOT/AST 22 U/L (15-37); SGPT/ALT 34 U/L (13-61); SODIUM 136 mmol/L (136-145); TOT PROT 4.8 g/dl (6.4-8.2)
[2018-10-19] MEDS: PANTOPRAZOLE SODIUM 40 MG VIAL IVPUSH SCH (10:09)
[2018-10-19] MEDS: METOPROLOL TARTRATE 25 MG TABLET (FP) PO SCH ×2 (10:09→21:58)
--- NOTE | 2018-10-19 10:20 | PN ---
Progress Note, Physician Chief Complaint: abdominal pain History of Present Illness: 48 yo male PMH CP here with his mother c/o abd pain n/v. states abd pain started one week ago. initially with mild discomfort and nausea, over the last 2 days pain has progressed to vomiting . He has been stable post operatively. - Current Medication List Current Medications: Active Medications Acetaminophen (Ofirmev Injection -) 1,000 mg IVPB Q6H PRN PRN Reason: PAIN LEVEL 7 - 10 Benzocaine/Butamben/Tetracaine HCl (Cetacaine [place] -) 1 spray TP DAILY PRN PRN Reason: SORE THROAT Benzocaine/Menthol (Cepacol Lozenge -) 1 each MM PRN PRN PRN Reason: SORE THROAT Chlorhexidine Gluconate (Hibiclens For Decolonization -) 1 applic TP HS [facility] Last Admin: 10/18/18 22:04 Dose: 1 applic Heparin Sodium (Porcine) (Heparin -) 5,000 unit SQ TID [facility] Last Admin: 10/19/18 05:44 Dose: 5,000 unit Potassium Chloride/Dextrose/Sod Cl (D5-1/2ns+20 Meq Kcl -) 20 meq in 1,000 mls @ 100 mls/hr IV ASDIR [facility] Last Admin: 10/19/18 10:09 Dose: Not Given Piperacillin Sod/Tazobactam (Sod 2.25 gm/ Dextrose) 50 mls @ 100 mls/hr IVPB Q6H-IV [facility]; Protocol Last Admin: 10/19/18 10:09 Dose: 100 mls/hr Metoprolol Tartrate (Lopressor -) 25 mg PO BID [facility] Last Admin: 10/19/18 10:09 Dose: Not Given Ondansetron HCl (Zofran Injection) 4 mg IVPUSH Q4H PRN PRN Reason: NAUSEA AND/OR VOMITING Last Admin: 10/17/18 16:06 Dose: 4 mg Pantoprazole Sodium (Protonix Iv) 40 mg IVPUSH DAILY [facility] Last Admin: 10/19/18 10:09 Dose: 40 mg - Objective Vital Signs: Vital Signs Temperature 98.3 F 10/19/18 06:00 Pulse Rate 87 10/19/18 06:00 Respiratory Rate 22 H 10/19/18 06:00 Blood Pressure 121/63 10/19/18 06:00 O2 Sat by Pulse Oximetry (%) 98 10/18/18 21:00 Vital Signs Period Temp Pulse Resp BP Sys/Osorio Pulse Ox Last 24 Hr 97.8 F-100.5 F 87-108 18-22 115-125/62-66 98 Intake & Output 10/18/18 10/19/18 10/19/18 23:59 07:59 15:59 Intake Total 650 Output Total 1350 700 Balance -1350 -50 Weight 193 lb Intake: IV 600 D5-1/2NS+20 MEQ KCL - 20 600 meq In 1,000 ml @ 100 mls /hr IV ASDIR [facility] Rx#: [id number] IVPB 50 Output: Gastric Drainage 900 0 Urine 450 700 [place] 450 700 Other: Voiding Method Indwelling Catheter Weight Measurement Method Built in [facility] Constitutional: Yes: Well Nourished, No Distress, Calm Eyes: Yes: Conjunctiva Clear, EOM Intact HENT: Yes: Atraumatic, Normocephalic Neck: Yes: Supple, Trachea Midline Cardiovascular: Yes: Regular Rate and Rhythm, S1, S2 Respiratory: Yes: Regular, CTA Bilaterally Gastrointestinal: Yes: Normal Bowel Sounds, Soft ...Rectal Exam: Yes: Deferred Genitourinary: No: CVA Tenderness - Left, CVA Tenderness - Right Musculoskeletal: No: Muscle Pain, Muscle Weakness Extremities: No: Cool, Cyanosis Edema: No Peripheral Pulses WNL: Yes Peripheral Pulses: Left Radial: 2+, Right Radial: 2+, Left Doralis Pedis: 2+, Right Dorsalis Pedis: 2+, Left Femoral: 2+, Right Femoral: 2+ Wound/Incision: Yes: Clean/Dry, [place] Intact, Unapproximated. No: Draining, Reddened Neurological: Yes: Alert, Oriented Psychiatric: Yes: Alert, Oriented Labs: CBC, BMP 10/19/18 05:30 10/19/18 05:30 INR, PTT INR 1.29 (0.83-1.09) H 10/11/18 20:30 Problem List - Problems (1) Bowel perforation Assessment/Plan: 48yo male with peritonitis and perforated viscus that will need surgical exploration POD#8 s/p Exp Lap, ileocecetomy for a ruptured appendicitis NPO and IVF hydration NGT to LIWS wound care orders IV antibiotics per ID Adequate analgesia OOB and ambulate will follow This patient is critically ill. Time spent reviewing chart, examining patient, talking with providers and/or family and documentation is 35 minutes. Code(s): K63.1 - PERFORATION OF INTESTINE (NONTRAUMATIC) (2) Cerebral palsy Code(s): G80.9 - CEREBRAL PALSY, UNSPECIFIED (3) Bowel obstruction Code(s): K56.609 - UNSP INTESTNL OBST, UNSP TO PARTIAL VERSUS COMPLETE OBST Qualifiers: Intestinal obstruction type: other intestinal obstruction (4) Renal failure Code(s): N19 - UNSPECIFIED KIDNEY FAILURE Qualifiers: Renal failure chronicity: acute (5) Sepsis Code(s): A41.9 - SEPSIS, UNSPECIFIED ORGANISM
--- NOTE | 2018-10-19 12:47 | PN ---
Progress Note, Physician Chief Complaint: Feels better History of Present Illness: Patient was seen and examined. Awake and alert. Chart was reviewed Denies chest pain, SOB or palpitations - Current Medication List Current Medications: Active Medications Acetaminophen (Ofirmev Injection -) 1,000 mg IVPB Q6H PRN PRN Reason: PAIN LEVEL 7 - 10 Benzocaine/Butamben/Tetracaine HCl (Cetacaine [place] -) 1 spray TP DAILY PRN PRN Reason: SORE THROAT Benzocaine/Menthol (Cepacol Lozenge -) 1 each MM PRN PRN PRN Reason: SORE THROAT Chlorhexidine Gluconate (Hibiclens For Decolonization -) 1 applic TP HS [facility] Last Admin: 10/18/18 22:04 Dose: 1 applic Heparin Sodium (Porcine) (Heparin -) 5,000 unit SQ TID [facility] Last Admin: 10/19/18 05:44 Dose: 5,000 unit Potassium Chloride/Dextrose/Sod Cl (D5-1/2ns+20 Meq Kcl -) 20 meq in 1,000 mls @ 100 mls/hr IV [facility]IR [facility] Last Admin: 10/19/18 10:09 Dose: Not Given Piperacillin Sod/Tazobactam (Sod 2.25 gm/ Dextrose) 50 mls @ 100 mls/hr IVPB Q6H-IV [facility]; Protocol Last Admin: 10/19/18 10:09 Dose: 100 mls/hr Metoprolol Tartrate (Lopressor -) 25 mg PO BID [facility] Last Admin: 10/19/18 10:09 Dose: Not Given Ondansetron HCl (Zofran Injection) 4 mg IVPUSH Q4H PRN PRN Reason: NAUSEA AND/OR VOMITING Last Admin: 10/17/18 16:06 Dose: 4 mg Pantoprazole Sodium (Protonix Iv) 40 mg IVPUSH DAILY [facility] Last Admin: 10/19/18 10:09 Dose: 40 mg - Objective Vital Signs: Vital Signs Temperature 98.3 F 10/19/18 06:00 Pulse Rate 87 10/19/18 06:00 Respiratory Rate 22 H 10/19/18 06:00 Blood Pressure 121/63 10/19/18 06:00 O2 Sat by Pulse Oximetry (%) 98 10/18/18 21:00 HENT: Yes: Atraumatic Neck: Yes: Supple Cardiovascular: Yes: Regular Rate and Rhythm, S1, S2 Respiratory: Yes: Diminished Gastrointestinal: Yes: Other (post op) Edema: No Labs: CBC, BMP 10/19/18 05:30 10/19/18 05:30 Problem List - Problems (1) PSVT (paroxysmal supraventricular tachycardia) Code(s): I47.1 - SUPRAVENTRICULAR TACHYCARDIA (2) Sinus tachycardia Code(s): R00.0 - TACHYCARDIA, UNSPECIFIED (3) Appendix perforation Code(s): K35.32 - ACUTE APPENDICITIS WITH PERF AND LOC PERITONITIS, W/O ABSCS (4) Bowel obstruction Code(s): K56.609 - UNSP INTESTNL OBST, UNSP TO PARTIAL VERSUS COMPLETE OBST Qualifiers: Intestinal obstruction type: other intestinal obstruction (5) Bowel perforation Code(s): K63.1 - PERFORATION OF INTESTINE (NONTRAUMATIC) (6) Cerebral palsy Code(s): G80.9 - CEREBRAL PALSY, UNSPECIFIED (7) Renal failure Code(s): N19 - UNSPECIFIED KIDNEY FAILURE Qualifiers: Renal failure chronicity: acute (8) Sepsis Code(s): A41.9 - SEPSIS, UNSPECIFIED ORGANISM Assessment/Plan 1. Pneumo-peritoneum due to bowel perforation/fecal peritonitis/SBO post Exp-Lap , ileocecetomy for a ruptured appendicitis 2. PAF [id number] score of 0 and PSVT currently in sinus rhythm 3. Leukocytosis, persistent 4. Post acute respiratory failure 5. History of Cerebral palsy 6. Acute renal insufficiency due to sepsis syndrome/resolved PLAN: 1. NG decompression 2. No indications for long tern anticoagulation considering the above noted [id number] score of 0 and recommend ASA unless contraindicated 3. Antibiotics present therapy Jet Blank MD
[2018-10-19 13:05] LABS: ANISOCYTOSIS 0; MACROCYTOSIS 0; PLATELET ESTIMATE NORMAL
--- NOTE | 2018-10-19 15:59 | PN ---
Progress Note, Physician - Current Medication List Current Medications: Active Medications Acetaminophen (Ofirmev Injection -) 1,000 mg IVPB Q6H PRN PRN Reason: PAIN LEVEL 7 - 10 Benzocaine/Butamben/Tetracaine HCl (Cetacaine [place] -) 1 spray TP DAILY PRN PRN Reason: SORE THROAT Benzocaine/Menthol (Cepacol Lozenge -) 1 each MM PRN PRN PRN Reason: SORE THROAT Chlorhexidine Gluconate (Hibiclens For Decolonization -) 1 applic TP HS [facility] Last Admin: 10/18/18 22:04 Dose: 1 applic Heparin Sodium (Porcine) (Heparin -) 5,000 unit SQ TID [facility] Last Admin: 10/19/18 05:44 Dose: 5,000 unit Potassium Chloride/Dextrose/Sod Cl (D5-1/2ns+20 Meq Kcl -) 20 meq in 1,000 mls @ 100 mls/hr IV ASDIR [facility] Last Admin: 10/19/18 10:09 Dose: Not Given Piperacillin Sod/Tazobactam (Sod 2.25 gm/ Dextrose) 50 mls @ 100 mls/hr IVPB Q6H-IV [facility]; Protocol Last Admin: 10/19/18 10:09 Dose: 100 mls/hr Metoprolol Tartrate (Lopressor -) 25 mg PO BID [facility] Last Admin: 10/19/18 10:09 Dose: Not Given Ondansetron HCl (Zofran Injection) 4 mg IVPUSH Q4H PRN PRN Reason: NAUSEA AND/OR VOMITING Last Admin: 10/17/18 16:06 Dose: 4 mg Pantoprazole Sodium (Protonix Iv) 40 mg IVPUSH DAILY [facility] Last Admin: 10/19/18 10:09 Dose: 40 mg - Objective Vital Signs: Vital Signs Temperature 98.1 F 10/19/18 10:00 Pulse Rate 97 H 10/19/18 10:00 Respiratory Rate 20 10/19/18 10:00 Blood Pressure 110/70 10/19/18 10:00 O2 Sat by Pulse Oximetry (%) 98 10/19/18 09:00 Labs: CBC, BMP 10/19/18 05:30 10/19/18 05:30 INR, PTT INR 1.29 (0.83-1.09) H 10/11/18 20:30
--- NOTE | 2018-10-19 16:25 | PN ---
Progress Note, Physician History of Present Illness: events noted ngt in place - Current Medication List Current Medications: Active Medications Acetaminophen (Ofirmev Injection -) 1,000 mg IVPB Q6H PRN PRN Reason: PAIN LEVEL 7 - 10 Benzocaine/Butamben/Tetracaine HCl (Cetacaine [place] -) 1 spray TP DAILY PRN PRN Reason: SORE THROAT Benzocaine/Menthol (Cepacol Lozenge -) 1 each MM PRN PRN PRN Reason: SORE THROAT Chlorhexidine Gluconate (Hibiclens For Decolonization -) 1 applic TP HS [facility] Last Admin: 10/18/18 22:04 Dose: 1 applic Heparin Sodium (Porcine) (Heparin -) 5,000 unit SQ TID [facility] Last Admin: 10/19/18 05:44 Dose: 5,000 unit Potassium Chloride/Dextrose/Sod Cl (D5-1/2ns+20 Meq Kcl -) 20 meq in 1,000 mls @ 100 mls/hr IV ASDIR [facility] Last Admin: 10/19/18 10:09 Dose: Not Given Piperacillin Sod/Tazobactam (Sod 2.25 gm/ Dextrose) 50 mls @ 100 mls/hr IVPB Q6H-IV [facility]; Protocol Last Admin: 10/19/18 10:09 Dose: 100 mls/hr Metoprolol Tartrate (Lopressor -) 25 mg PO BID [facility] Last Admin: 10/19/18 10:09 Dose: Not Given Ondansetron HCl (Zofran Injection) 4 mg IVPUSH Q4H PRN PRN Reason: NAUSEA AND/OR VOMITING Last Admin: 10/17/18 16:06 Dose: 4 mg Pantoprazole Sodium (Protonix Iv) 40 mg IVPUSH DAILY [facility] Last Admin: 10/19/18 10:09 Dose: 40 mg - Objective Vital Signs: Vital Signs Temperature 98.1 F 10/19/18 10:00 Pulse Rate 97 H 10/19/18 10:00 Respiratory Rate 20 10/19/18 10:00 Blood Pressure 110/70 10/19/18 10:00 O2 Sat by Pulse Oximetry (%) 98 10/19/18 09:00 Constitutional: Yes: No Distress HENT: Yes: Atraumatic Neck: Yes: Supple Cardiovascular: Yes: Regular Rate and Rhythm Respiratory: Yes: CTA Bilaterally Gastrointestinal: Yes: Distention, Hypoactive Bowel Sounds Extremities: Yes: WNL Edema: No Neurological: Yes: Alert, Oriented Labs: CBC, BMP 10/19/18 05:30 10/19/18 05:30 INR, PTT INR 1.29 (0.83-1.09) H 10/11/18 20:30 Problem List - Problems (1) Appendix perforation Assessment/Plan: s/p surgery iv abx prn pain meds ngt in place now Code(s): K35.32 - ACUTE APPENDICITIS WITH PERF AND LOC PERITONITIS, W/O ABSCS (2) Bowel obstruction Assessment/Plan: s/p surgery Code(s): K56.609 - UNSP INTESTNL OBST, UNSP TO PARTIAL VERSUS COMPLETE OBST Qualifiers: Intestinal obstruction type: other intestinal obstruction (3) Bowel perforation Code(s): K63.1 - PERFORATION OF INTESTINE (NONTRAUMATIC) (4) Sepsis Assessment/Plan: on abx id on board Code(s): A41.9 - SEPSIS, UNSPECIFIED ORGANISM
--- NOTE | 2018-10-19 17:07 | PN ---
Progress Note (short form) - Note Progress Note: Patient seen and examined. NGT in place. No flatus or BM. No CP or SOB. OBJECTIVE: Intake & Output 10/16/18 10/17/18 10/18/18 10/19/18 23:59 23:59 23:59 23:59 Intake Total 1200 1200 1250 650 Output Total 1000 1400 1550 700 Balance 200 -200 -300 -50 Weight 188 lb 9 oz 190 lb 193 lb Last Vital Signs Temp Pulse Resp BP Pulse Ox 98.1 F 96 H 20 120/70 98 10/19/18 10:00 10/19/18 16:03 10/19/18 16:03 10/19/18 16:03 10/19/18 09:00 Active Medications Acetaminophen (Ofirmev Injection -) 1,000 mg IVPB Q6H PRN PRN Reason: PAIN LEVEL 7 - 10 Benzocaine/Butamben/Tetracaine HCl (Cetacaine [place] -) 1 spray TP DAILY PRN PRN Reason: SORE THROAT Benzocaine/Menthol (Cepacol Lozenge -) 1 each MM PRN PRN PRN Reason: SORE THROAT Chlorhexidine Gluconate (Hibiclens For Decolonization -) 1 applic TP HS [facility] Last Admin: 10/18/18 22:04 Dose: 1 applic Heparin Sodium (Porcine) (Heparin -) 5,000 unit SQ TID [facility] Last Admin: 10/19/18 05:44 Dose: 5,000 unit Potassium Chloride/Dextrose/Sod Cl (D5-1/2ns+20 Meq Kcl -) 20 meq in 1,000 mls @ 100 mls/hr IV ASDIR [facility] Last Admin: 10/19/18 10:09 Dose: Not Given Piperacillin Sod/Tazobactam (Sod 2.25 gm/ Dextrose) 50 mls @ 100 mls/hr IVPB Q6H-IV [facility]; Protocol Last Admin: 10/19/18 10:09 Dose: 100 mls/hr Metoprolol Tartrate (Lopressor -) 25 mg PO BID [facility] Last Admin: 10/19/18 10:09 Dose: Not Given Ondansetron HCl (Zofran Injection) 4 mg IVPUSH Q4H PRN PRN Reason: NAUSEA AND/OR VOMITING Last Admin: 10/17/18 16:06 Dose: 4 mg Pantoprazole Sodium (Protonix Iv) 40 mg IVPUSH DAILY [facility] Last Admin: 10/19/18 10:09 Dose: 40 mg Gen: NAD at rest Heart: RRR Lung: decreased breath sounds at the bases Abd: distended, (+) dressings intact, Hypoactive BS Ext: (+) edema Laboratory Results - last 24 hr 10/19/18 10/19/18 05:30 05:30 WBC 17.7 H RBC 3.49 L Hgb 10.7 L Hct 31.5 L MCV 90.3 MCH 30.6 MCHC 34.0 RDW 14.4 Plt Count 383 MPV 8.5 Absolute Neuts (auto) 13.7 H Neutrophils % 77.3 Neutrophils % (Manual) 83.7 H Band Neutrophils % 3.1 Lymphocytes % 9.3 D Lymphocytes % (Manual) 6.1 L Monocytes % 12.7 H Monocytes % (Manual) 6 Eosinophils % 0.6 Eosinophils % (Manual) 1.0 Basophils % 0.1 Basophils % (Manual) 0.0 Myelocytes % (Man) 0 D Promyelocytes % (Man) 0 Blast Cells % (Manual) 0 Nucleated RBC % 0 Metamyelocytes 0 Hypochromia 0 Platelet Estimate Normal Polychromasia 0 Poikilocytosis 0 Anisocytosis 0 Microcytosis 0 Macrocytosis 0 Sodium 136 Potassium 4.4 Chloride 105 Carbon Dioxide 25 Anion Gap 5 L BUN 15 Creatinine 0.9 Creat Clearance w eGFR 89.69 Random Glucose 111 H Calcium 7.6 L Total Bilirubin 1.1 H AST 22 ALT 34 Alkaline Phosphatase 99 Total Protein 4.8 L Albumin 1.6 L ASSESSMENT AND PLAN: Ruptured Appendicitis/Fecal Peritonitis s/p ex-lap/ileocecectomy/ileocolic anastamosis s/p Acute Respiratory Failure Severe Sepsis Acute Kidney Injury Lactic Acidosis Cerebral Palsy - NGT to low wall suction - ABX - NPO - IVF - monitor urine output, creatinine - pain control - incentive spirometry - rehab/PT - OOB to chair - DVT prophylaxis Dr Yang
[2018-10-19] MEDS: CHLORHEXIDINE GLUCONATE 4% CLEANSER FOR DECOLONIZATION TP SCH (21:58)
[2018-10-20] MEDS: PIPERACILLIN/TAZOB 2.25 GM 2.25 GM in DEXTROSE 5%-WATER - 50 ML IVPB SCH ×4 (03:46→21:51)
[2018-10-20] MEDS: HEPARIN NA (PORCINE) 5,000 UNITS/ML 1ML VIAL SQ SCH ×3 (06:04→21:50)
[2018-10-20 06:53] LABS: BASO % 0.2 % (0-2.0); EOS % 0.5 % (0-4.5); HEMATOCRIT 31.9 % (35.4-49); MCH 31.4 pg (25.7-33.7); MCHC 34.4 g/dl (32.0-35.9); MEAN CELL VOLUME 91.4 fl (80-96); MEAN PLT VOLUME 8.5 fl (7.5-11.1); MONO % 8.6 % (3.8-10.2); NEUT % 82.7 % (42.8-82.8); PLATELET COUNT 428 K/MM3 (134-434); RBC 3.49 M/mm3 (4.00-5.60); RDW 14.6 % (11.9-15.9); WHITE BLOOD COUNT 14.7 K/mm3 (4.0-10.0)
[2018-10-20 07:24] LABS: ALBUMIN 1.6 g/dl (3.4-5.0); ALK PHOS 124 U/L (45-117); ANION GAP 7 MMOL/L (8-16); BLOOD UREA NITROGEN 13 mg/dL (7-18); CALCIUM 7.6 mg/dL (8.5-10.1); CHLORIDE 104 mmol/L (98-107); CO2 24 mmol/L (21-32); CREATININE 0.8 mg/dL (0.55-1.3); GLUCOSE,RANDOM 94 mg/dL (74-106); POTASSIUM 4.4 mmol/L (3.5-5.1); SGOT/AST 29 U/L (15-37); SGPT/ALT 48 U/L (13-61); SODIUM 135 mmol/L (136-145); TOT PROT 4.8 g/dl (6.4-8.2)
[2018-10-20] MEDS ORDERED: PIPERACILLIN/TAZOBACTAM 2.25 GM VIAL IVPB ONE ×3 (09:34→21:48)
[2018-10-20] MEDS ORDERED: DEXTROSE 5%-WATER - 50 ML IVPB ONE ×3 (09:34→21:48)
[2018-10-20] MEDS: PANTOPRAZOLE SODIUM 40 MG VIAL IVPUSH SCH (09:42)
[2018-10-20] MEDS: METOPROLOL TARTRATE 25 MG TABLET (FP) PO SCH ×2 (09:43→21:00)
[2018-10-20] MEDS: D5-1/2NS+20 MEQ KCL - 20 MEQ/1,000 ML INFUS.BAG IV SCH (10:39)
[2018-10-20 13:09] LABS: ANISOCYTOSIS 0; HELMET CELLS 0; HOWELL-JOLLY BODIES 0; MACROCYTOSIS 0; OVALOCYTE 0; PLATELET ESTIMATE NORMAL; ROULEAU 0; SICKELED CELLS 0; TARGET CELLS 0; TEAR DROP CELLS 0; TOXIC GRANULATION 0
--- NOTE | 2018-10-20 14:02 | PN ---
Progress Note (short form) - Note Progress Note: PULMONARY Denies shortness of breath. No fevers recorded. Vital Signs Period Temp Pulse Resp BP Sys/Osorio Pulse Ox Last 24 Hr 97.4 F-98.9 F 82-96 18-21 117-130/44-82 98-98 Gen: NAD at rest Heart: RRR Lung: decreased breath sounds at the bases Abd: soft, nontender Ext: no edema CBC, BMP 10/20/18 05:30 10/20/18 05:30 Active Medications Acetaminophen (Ofirmev Injection -) 1,000 mg IVPB Q6H PRN PRN Reason: PAIN LEVEL 7 - 10 Benzocaine/Butamben/Tetracaine HCl (Cetacaine [place] -) 1 spray TP DAILY PRN PRN Reason: SORE THROAT Benzocaine/Menthol (Cepacol Lozenge -) 1 each MM PRN PRN PRN Reason: SORE THROAT Chlorhexidine Gluconate (Hibiclens For Decolonization -) 1 applic TP HS [facility] Last Admin: 10/19/18 21:58 Dose: 1 applic Heparin Sodium (Porcine) (Heparin -) 5,000 unit SQ TID [facility] Last Admin: 10/20/18 13:10 Dose: 5,000 unit Potassium Chloride/Dextrose/Sod Cl (D5-1/2ns+20 Meq Kcl -) 20 meq in 1,000 mls @ 100 mls/hr IV ASDIR [facility] Last Admin: 10/20/18 10:39 Dose: 100 mls/hr Piperacillin Sod/Tazobactam (Sod 2.25 gm/ Dextrose) 50 mls @ 100 mls/hr IVPB Q6H-IV [facility]; Protocol Last Admin: 10/20/18 09:41 Dose: 100 mls/hr Metoprolol Tartrate (Lopressor -) 25 mg PO BID [facility] Last Admin: 10/20/18 09:43 Dose: Not Given Ondansetron HCl (Zofran Injection) 4 mg IVPUSH Q4H PRN PRN Reason: NAUSEA AND/OR VOMITING Last Admin: 10/17/18 16:06 Dose: 4 mg Pantoprazole Sodium (Protonix Iv) 40 mg IVPUSH DAILY [facility] Last Admin: 10/20/18 09:42 Dose: 40 mg A/P Ruptured Appendicitis/Fecal Peritonitis s/p ex-lap/ileocecectomy/ileocolic anastamosis s/p Acute Respiratory Failure Severe Sepsis resolving Acute Kidney Injury resolving Lactic Acidosis Cerebral Palsy - NGT, PO per surgery - continue antibiotics per ID - IVF - monitor urine output, creatinine - pain control - incentive spirometry - rehab/PT - OOB to chair - DVT prophylaxis
--- NOTE | 2018-10-20 15:33 | PN ---
Progress Note, Physician - Current Medication List Current Medications: Active Medications Acetaminophen (Ofirmev Injection -) 1,000 mg IVPB Q6H PRN PRN Reason: PAIN LEVEL 7 - 10 Benzocaine/Butamben/Tetracaine HCl (Cetacaine [place] -) 1 spray TP DAILY PRN PRN Reason: SORE THROAT Benzocaine/Menthol (Cepacol Lozenge -) 1 each MM PRN PRN PRN Reason: SORE THROAT Chlorhexidine Gluconate (Hibiclens For Decolonization -) 1 applic TP HS [facility] Last Admin: 10/19/18 21:58 Dose: 1 applic Heparin Sodium (Porcine) (Heparin -) 5,000 unit SQ TID [facility] Last Admin: 10/20/18 13:10 Dose: 5,000 unit Potassium Chloride/Dextrose/Sod Cl (D5-1/2ns+20 Meq Kcl -) 20 meq in 1,000 mls @ 100 mls/hr IV ASDIR [facility] Last Admin: 10/20/18 10:39 Dose: 100 mls/hr Piperacillin Sod/Tazobactam (Sod 2.25 gm/ Dextrose) 50 mls @ 100 mls/hr IVPB Q6H-IV [facility]; Protocol Last Admin: 10/20/18 09:41 Dose: 100 mls/hr Metoprolol Tartrate (Lopressor -) 25 mg PO BID [facility] Last Admin: 10/20/18 09:43 Dose: Not Given Ondansetron HCl (Zofran Injection) 4 mg IVPUSH Q4H PRN PRN Reason: NAUSEA AND/OR VOMITING Last Admin: 10/17/18 16:06 Dose: 4 mg Pantoprazole Sodium (Protonix Iv) 40 mg IVPUSH DAILY [facility] Last Admin: 10/20/18 09:42 Dose: 40 mg - Objective Vital Signs: Vital Signs Temperature 97.4 F L 10/20/18 13:21 Pulse Rate 88 10/20/18 13:21 Respiratory Rate 18 10/20/18 13:21 Blood Pressure 126/72 10/20/18 13:21 O2 Sat by Pulse Oximetry (%) 98 10/20/18 10:00 Labs: CBC, BMP 10/20/18 05:30 10/20/18 05:30 INR, PTT INR 1.29 (0.83-1.09) H 10/11/18 20:30
--- NOTE | 2018-10-20 15:37 | PN ---
Progress Note, Physician History of Present Illness: feeling better ngt in place - Current Medication List Current Medications: Active Medications Acetaminophen (Ofirmev Injection -) 1,000 mg IVPB Q6H PRN PRN Reason: PAIN LEVEL 7 - 10 Benzocaine/Butamben/Tetracaine HCl (Cetacaine [place] -) 1 spray TP DAILY PRN PRN Reason: SORE THROAT Benzocaine/Menthol (Cepacol Lozenge -) 1 each MM PRN PRN PRN Reason: SORE THROAT Chlorhexidine Gluconate (Hibiclens For Decolonization -) 1 applic TP HS [facility] Last Admin: 10/19/18 21:58 Dose: 1 applic Heparin Sodium (Porcine) (Heparin -) 5,000 unit SQ TID [facility] Last Admin: 10/20/18 13:10 Dose: 5,000 unit Potassium Chloride/Dextrose/Sod Cl (D5-1/2ns+20 Meq Kcl -) 20 meq in 1,000 mls @ 100 mls/hr IV ASDIR [facility] Last Admin: 10/20/18 10:39 Dose: 100 mls/hr Piperacillin Sod/Tazobactam (Sod 2.25 gm/ Dextrose) 50 mls @ 100 mls/hr IVPB Q6H-IV [facility]; Protocol Last Admin: 10/20/18 09:41 Dose: 100 mls/hr Metoprolol Tartrate (Lopressor -) 25 mg PO BID [facility] Last Admin: 10/20/18 09:43 Dose: Not Given Ondansetron HCl (Zofran Injection) 4 mg IVPUSH Q4H PRN PRN Reason: NAUSEA AND/OR VOMITING Last Admin: 10/17/18 16:06 Dose: 4 mg Pantoprazole Sodium (Protonix Iv) 40 mg IVPUSH DAILY [facility] Last Admin: 10/20/18 09:42 Dose: 40 mg - Objective Vital Signs: Vital Signs Temperature 97.4 F L 10/20/18 13:21 Pulse Rate 88 10/20/18 13:21 Respiratory Rate 18 10/20/18 13:21 Blood Pressure 126/72 10/20/18 13:21 O2 Sat by Pulse Oximetry (%) 98 10/20/18 10:00 Constitutional: Yes: No Distress HENT: Yes: Atraumatic Neck: Yes: Supple Cardiovascular: Yes: Regular Rate and Rhythm Respiratory: Yes: CTA Bilaterally Gastrointestinal: Yes: Hypoactive Bowel Sounds, Other (distention much improved) Extremities: Yes: WNL Edema: No Peripheral Pulses WNL: Yes Neurological: Yes: Alert, Oriented Labs: CBC, BMP 10/20/18 05:30 10/20/18 05:30 INR, PTT INR 1.29 (0.83-1.09) H 10/11/18 20:30 Problem List - Problems (1) Appendix perforation Assessment/Plan: s/p surgery iv abx prn pain meds ngt in place Code(s): K35.32 - ACUTE APPENDICITIS WITH PERF AND LOC PERITONITIS, W/O ABSCS (2) Bowel obstruction Assessment/Plan: s/p surgery Code(s): K56.609 - UNSP INTESTNL OBST, UNSP TO PARTIAL VERSUS COMPLETE OBST Qualifiers: Intestinal obstruction type: other intestinal obstruction (3) Bowel perforation Code(s): K63.1 - PERFORATION OF INTESTINE (NONTRAUMATIC) (4) Sepsis Assessment/Plan: on abx id on board Code(s): A41.9 - SEPSIS, UNSPECIFIED ORGANISM Assessment/Plan DIAGNOSES Ruptured Appendicitis/Fecal Peritonitis s/p ex-lap/ileocecectomy/ileocolic anastamosis s/p Acute Respiratory Failure Severe Sepsis Acute Kidney Injury Lactic Acidosis Cerebral Palsy - cc time 35 min HAD A DETAILED DISCUSSION WITH PATIENT AND HIS MOTHER ABOUT PATIENTS CONDITION
--- NOTE | 2018-10-20 15:42 | PN ---
Progress Note, Physician History of Present Illness: abd still distended gi function still not present ng in place - Current Medication List Current Medications: Active Medications Acetaminophen (Ofirmev Injection -) 1,000 mg IVPB Q6H PRN PRN Reason: PAIN LEVEL 7 - 10 Benzocaine/Butamben/Tetracaine HCl (Cetacaine [place] -) 1 spray TP DAILY PRN PRN Reason: SORE THROAT Benzocaine/Menthol (Cepacol Lozenge -) 1 each MM PRN PRN PRN Reason: SORE THROAT Chlorhexidine Gluconate (Hibiclens For Decolonization -) 1 applic TP HS [facility] Last Admin: 10/19/18 21:58 Dose: 1 applic Heparin Sodium (Porcine) (Heparin -) 5,000 unit SQ TID [facility] Last Admin: 10/20/18 13:10 Dose: 5,000 unit Potassium Chloride/Dextrose/Sod Cl (D5-1/2ns+20 Meq Kcl -) 20 meq in 1,000 mls @ 100 mls/hr IV ASDIR [facility] Last Admin: 10/20/18 10:39 Dose: 100 mls/hr Piperacillin Sod/Tazobactam (Sod 2.25 gm/ Dextrose) 50 mls @ 100 mls/hr IVPB Q6H-IV [facility]; Protocol Last Admin: 10/20/18 09:41 Dose: 100 mls/hr Metoprolol Tartrate (Lopressor -) 25 mg PO BID [facility] Last Admin: 10/20/18 09:43 Dose: Not Given Ondansetron HCl (Zofran Injection) 4 mg IVPUSH Q4H PRN PRN Reason: NAUSEA AND/OR VOMITING Last Admin: 10/17/18 16:06 Dose: 4 mg Pantoprazole Sodium (Protonix Iv) 40 mg IVPUSH DAILY [facility] Last Admin: 10/20/18 09:42 Dose: 40 mg - Objective Vital Signs: Vital Signs Temperature 97.4 F L 10/20/18 13:21 Pulse Rate 88 10/20/18 13:21 Respiratory Rate 18 10/20/18 13:21 Blood Pressure 126/72 10/20/18 13:21 O2 Sat by Pulse Oximetry (%) 98 10/20/18 10:00 Constitutional: Yes: Calm, Mild Distress Cardiovascular: Yes: Regular Rate and Rhythm, S1, S2 Respiratory: Yes: Regular, Poor Air Entry (bases) Gastrointestinal: Yes: Other (basent bowel sounds) Musculoskeletal: Yes: WNL Extremities: Yes: WNL Neurological: Yes: Alert, Oriented Psychiatric: Yes: Alert, Oriented Labs: CBC, BMP 10/20/18 05:30 10/20/18 05:30 INR, PTT INR 1.29 (0.83-1.09) H 10/11/18 20:30 Assessment/Plan Problem List - Problems (1) Bowel perforation Code(s): K63.1 - PERFORATION OF INTESTINE (NONTRAUMATIC) (2) Cerebral palsy Code(s): G80.9 - CEREBRAL PALSY, UNSPECIFIED (3) Bowel obstruction Code(s): K56.609 - UNSP INTESTNL OBST, UNSP TO PARTIAL VERSUS COMPLETE OBST (4) Renal failure Code(s): N19 - UNSPECIFIED KIDNEY FAILURE (5) Sepsis Code(s): A41.9 - SEPSIS, UNSPECIFIED ORGANISM 6 leukocytosis Ruptured Appendicitis/Fecal Peritonitis s/p ex-lap/ileocecectomy/ileocolic anastamosis s/p Acute Respiratory Failure Severe Sepsis Acute Kidney Injury Lactic Acidosis Cerebral Palsy plan continue abx wbc still high ng tube suction rest as per the team
[2018-10-20 16:10] VITALS: BMI 29.3
--- NOTE | 2018-10-20 16:43 | PN ---
Progress Note, Physician History of Present Illness: Remains in SR, afebrile, awaiting bowel function recovery. - Current Medication List Current Medications: Active Medications Acetaminophen (Ofirmev Injection -) 1,000 mg IVPB Q6H PRN PRN Reason: PAIN LEVEL 7 - 10 Benzocaine/Butamben/Tetracaine HCl (Cetacaine [place] -) 1 spray TP DAILY PRN PRN Reason: SORE THROAT Benzocaine/Menthol (Cepacol Lozenge -) 1 each MM PRN PRN PRN Reason: SORE THROAT Chlorhexidine Gluconate (Hibiclens For Decolonization -) 1 applic TP HS [facility] Last Admin: 10/19/18 21:58 Dose: 1 applic Heparin Sodium (Porcine) (Heparin -) 5,000 unit SQ TID [facility] Last Admin: 10/20/18 13:10 Dose: 5,000 unit Potassium Chloride/Dextrose/Sod Cl (D5-1/2ns+20 Meq Kcl -) 20 meq in 1,000 mls @ 100 mls/hr IV ASDIR [facility] Last Admin: 10/20/18 10:39 Dose: 100 mls/hr Piperacillin Sod/Tazobactam (Sod 2.25 gm/ Dextrose) 50 mls @ 100 mls/hr IVPB Q6H-IV [facility]; Protocol Last Admin: 10/20/18 09:41 Dose: 100 mls/hr Metoprolol Tartrate (Lopressor -) 25 mg PO BID [facility] Last Admin: 10/20/18 09:43 Dose: Not Given Ondansetron HCl (Zofran Injection) 4 mg IVPUSH Q4H PRN PRN Reason: NAUSEA AND/OR VOMITING Last Admin: 10/17/18 16:06 Dose: 4 mg Pantoprazole Sodium (Protonix Iv) 40 mg IVPUSH DAILY [facility] Last Admin: 10/20/18 09:42 Dose: 40 mg - Objective Vital Signs: Vital Signs Temperature 97.4 F L 10/20/18 13:21 Pulse Rate 88 10/20/18 13:21 Respiratory Rate 18 10/20/18 13:21 Blood Pressure 126/72 10/20/18 13:21 O2 Sat by Pulse Oximetry (%) 98 10/20/18 10:00 Constitutional: Yes: No Distress, Calm Neck: Yes: Supple Cardiovascular: Yes: Regular Rate and Rhythm Respiratory: Yes: Regular, Diminished Gastrointestinal: Yes: Soft, Distention, Hypoactive Bowel Sounds Edema: No Labs: CBC, BMP 10/20/18 05:30 10/20/18 05:30 INR, PTT INR 1.29 (0.83-1.09) H 10/11/18 20:30 - ....Imaging EKG: Report Reviewed (Tele: NSR) Problem List - Problems (1) Paroxysmal atrial fibrillation with rapid ventricular response Code(s): I48.0 - PAROXYSMAL ATRIAL FIBRILLATION (2) Appendix perforation Code(s): K35.32 - ACUTE APPENDICITIS WITH PERF AND LOC PERITONITIS, W/O ABSCS (3) Bowel perforation Code(s): K63.1 - PERFORATION OF INTESTINE (NONTRAUMATIC) (4) Cerebral palsy Code(s): G80.9 - CEREBRAL PALSY, UNSPECIFIED (5) PSVT (paroxysmal supraventricular tachycardia) Code(s): I47.1 - SUPRAVENTRICULAR TACHYCARDIA (6) Sepsis Code(s): A41.9 - SEPSIS, UNSPECIFIED ORGANISM (7) Acute kidney injury Code(s): N17.9 - ACUTE KIDNEY FAILURE, UNSPECIFIED Assessment/Plan 10/12/2018 Normal biventricular size and fxn, mild MR, tr MI 1. Pneumo-peritoneum due to bowel perforation/fecal peritonitis/SBO post Exp-Lap , ileocecetomy for a ruptured appendicitis 2. PAF [id number] score of 0 and PSVT currently in sinus rhythm 3. Leukocytosis, persistent 4. Post acute respiratory failure 5. History of Cerebral palsy 6. Acute renal insufficiency due to sepsis syndrome/resolved PLAN: 1. NGT decompression 2. No indications for long tern anticoagulation considering the above noted [id number] score of 0 and recommend ASA unless contraindicated 3. Antibiotic course per ID 4 OOB to chair, awaiting return of bowel function 5 DVT prophylaxis
[2018-10-20] MEDS: AMINO ACIDS 4.25%/D5W 1,000 ML IV SCH (21:47)
[2018-10-21] MEDS: PIPERACILLIN/TAZOB 2.25 GM 2.25 GM in DEXTROSE 5%-WATER - 50 ML IVPB SCH ×4 (03:00→22:14)
[2018-10-21] MEDS ORDERED: PIPERACILLIN/TAZOBACTAM 2.25 GM VIAL IVPB ONE ×4 (03:07→21:51)
[2018-10-21] MEDS ORDERED: DEXTROSE 5%-WATER - 50 ML IVPB ONE ×4 (03:07→21:51)
[2018-10-21 06:09] LABS: BASO % 0.4 % (0-2.0); EOS % 0.5 % (0-4.5); HEMATOCRIT 32.1 % (35.4-49); HEMOGLOBIN 10.5 GM/dL (11.7-16.9); MCH 29.5 pg (25.7-33.7); MCHC 32.6 g/dl (32.0-35.9); MEAN CELL VOLUME 90.6 fl (80-96); MONO % 8.8 % (3.8-10.2); NEUT % 80.3 % (42.8-82.8); PLATELET COUNT 511 K/MM3 (134-434); RBC 3.54 M/mm3 (4.00-5.60); RDW 14.8 % (11.9-15.9); WHITE BLOOD COUNT 14.6 K/mm3 (4.0-10.0)
[2018-10-21] MEDS: AMINO ACIDS 4.25%/D5W 1,000 ML IV SCH ×2 (06:20→18:21)
[2018-10-21 06:35] LABS: ALBUMIN 1.7 g/dl (3.4-5.0); ALK PHOS 124 U/L (45-117); ANION GAP 8 MMOL/L (8-16); BILIRUBIN,TOTAL 0.9 mg/dL (0.2-1); BLOOD UREA NITROGEN 10 mg/dL (7-18); CALCIUM 7.9 mg/dL (8.5-10.1); CHLORIDE 103 mmol/L (98-107); CO2 26 mmol/L (21-32); CREATININE 0.9 mg/dL (0.55-1.3); GLUCOSE,RANDOM 87 mg/dL (74-106); POTASSIUM 4.6 mmol/L (3.5-5.1); SGOT/AST 22 U/L (15-37); SGPT/ALT 42 U/L (13-61); SODIUM 137 mmol/L (136-145); TOT PROT 4.9 g/dl (6.4-8.2)
[2018-10-21] MEDS ORDERED: PT OWN MED DRAWER 7, Y5N ONE (09:03)
[2018-10-21] MEDS: METOPROLOL TARTRATE 25 MG TABLET (FP) PO SCH ×2 (09:12→22:14)
[2018-10-21] MEDS: PANTOPRAZOLE SODIUM 40 MG VIAL IVPUSH SCH (09:12)
[2018-10-21] MEDS: HEPARIN NA (PORCINE) 5,000 UNITS/ML 1ML VIAL SQ SCH ×2 (09:12→22:14)
[2018-10-21 11:16] LABS: ANISOCYTOSIS 0; MACROCYTOSIS 0; PLATELET ESTIMATE INCREASED
--- NOTE | 2018-10-21 12:13 | PN ---
Progress Note, Physician History of Present Illness: Remains in SR, afebrile, awaiting bowel function recovery. - Current Medication List Current Medications: Active Medications Acetaminophen (Ofirmev Injection -) 1,000 mg IVPB Q6H PRN PRN Reason: PAIN LEVEL 7 - 10 Benzocaine/Butamben/Tetracaine HCl (Cetacaine [place] -) 1 spray TP DAILY PRN PRN Reason: SORE THROAT Benzocaine/Menthol (Cepacol Lozenge -) 1 each MM PRN PRN PRN Reason: SORE THROAT Heparin Sodium (Porcine) (Heparin -) 5,000 unit SQ BID [facility] Last Admin: 10/21/18 09:12 Dose: 5,000 unit Piperacillin Sod/Tazobactam (Sod 2.25 gm/ Dextrose) 50 mls @ 100 mls/hr IVPB Q6H-IV [facility]; Protocol Last Admin: 10/21/18 09:12 Dose: 100 mls/hr Amino Acids (Clinimix -) 1,000 mls @ 42 mls/hr IV Q12H [facility] Last Admin: 10/21/18 06:20 Dose: Not Given Metoprolol Tartrate (Lopressor -) 25 mg PO BID [facility] Last Admin: 10/21/18 09:12 Dose: Not Given Ondansetron HCl (Zofran Injection) 4 mg IVPUSH Q4H PRN PRN Reason: NAUSEA AND/OR VOMITING Last Admin: 10/17/18 16:06 Dose: 4 mg Pantoprazole Sodium (Protonix Iv) 40 mg IVPUSH DAILY [facility] Last Admin: 10/21/18 09:12 Dose: 40 mg - Objective Vital Signs: Vital Signs Temperature 98.4 F 10/21/18 10:00 Pulse Rate 88 10/21/18 10:00 Respiratory Rate 18 10/21/18 10:00 Blood Pressure 109/73 10/21/18 10:00 O2 Sat by Pulse Oximetry (%) 98 10/20/18 20:57 Constitutional: Yes: No Distress, Calm Neck: Yes: Supple Cardiovascular: Yes: Regular Rate and Rhythm Respiratory: Yes: Regular, Diminished, On Nasal O2 Gastrointestinal: Yes: Soft, Distention, Hypoactive Bowel Sounds Edema: No Labs: CBC, BMP 10/21/18 05:30 10/21/18 05:30 INR, PTT INR 1.29 (0.83-1.09) H 10/11/18 20:30 - ....Imaging EKG: Report Reviewed (Tele: NSR) Problem List - Problems (1) Paroxysmal atrial fibrillation with rapid ventricular response Code(s): I48.0 - PAROXYSMAL ATRIAL FIBRILLATION (2) Appendix perforation Code(s): K35.32 - ACUTE APPENDICITIS WITH PERF AND LOC PERITONITIS, W/O ABSCS (3) Bowel perforation Code(s): K63.1 - PERFORATION OF INTESTINE (NONTRAUMATIC) (4) Cerebral palsy Code(s): G80.9 - CEREBRAL PALSY, UNSPECIFIED (5) PSVT (paroxysmal supraventricular tachycardia) Code(s): I47.1 - SUPRAVENTRICULAR TACHYCARDIA (6) Sepsis Code(s): A41.9 - SEPSIS, UNSPECIFIED ORGANISM (7) Acute kidney injury Code(s): N17.9 - ACUTE KIDNEY FAILURE, UNSPECIFIED Assessment/Plan 10/12/2018 Normal biventricular size and fxn, mild MR, tr MA 1. Pneumo-peritoneum due to bowel perforation/fecal peritonitis/SBO post Exp-Lap , ileocecetomy for a ruptured appendicitis 2. PAF [id number] score of 0 and PSVT currently in sinus rhythm 3. Leukocytosis, improving 4. Post acute respiratory failure 5. History of Cerebral palsy 6. Acute renal insufficiency due to sepsis syndrome/resolved PLAN: 1. NGT decompression 2. No indications for long tern anticoagulation considering the above noted [id number] score of 0 and recommend ASA unless contraindicated 3. Antibiotic course per ID 4. OOB to chair, awaiting return of bowel function 5. DVT prophylaxis
--- NOTE | 2018-10-21 12:35 | PN ---
Progress Note (short form) - Note Progress Note: Patient seen and examined. NGT remains in place. No significant flatus or BM. No CP or SOB. OBJECTIVE: Intake & Output 10/18/18 10/19/18 10/20/18 10/21/18 23:59 23:59 23:59 23:59 Intake Total 1250 1850 2400 720 Output Total 1550 1250 1400 Balance -903 917 4135 720 Weight 190 lb 193 lb 193 lb Last Vital Signs Temp Pulse Resp BP Pulse Ox 98.4 F 88 18 109/73 98 10/21/18 10:00 10/21/18 10:00 10/21/18 10:00 10/21/18 10:00 10/20/18 20:57 Active Medications Acetaminophen (Ofirmev Injection -) 1,000 mg IVPB Q6H PRN PRN Reason: PAIN LEVEL 7 - 10 Benzocaine/Butamben/Tetracaine HCl (Cetacaine [place] -) 1 spray TP DAILY PRN PRN Reason: SORE THROAT Benzocaine/Menthol (Cepacol Lozenge -) 1 each MM PRN PRN PRN Reason: SORE THROAT Heparin Sodium (Porcine) (Heparin -) 5,000 unit SQ BID [facility] Last Admin: 10/21/18 09:12 Dose: 5,000 unit Piperacillin Sod/Tazobactam (Sod 2.25 gm/ Dextrose) 50 mls @ 100 mls/hr IVPB Q6H-IV [facility]; Protocol Last Admin: 10/21/18 09:12 Dose: 100 mls/hr Amino Acids (Clinimix -) 1,000 mls @ 42 mls/hr IV Q12H [facility] Last Admin: 10/21/18 06:20 Dose: Not Given Metoprolol Tartrate (Lopressor -) 25 mg PO BID [facility] Last Admin: 10/21/18 09:12 Dose: Not Given Ondansetron HCl (Zofran Injection) 4 mg IVPUSH Q4H PRN PRN Reason: NAUSEA AND/OR VOMITING Last Admin: 10/17/18 16:06 Dose: 4 mg Pantoprazole Sodium (Protonix Iv) 40 mg IVPUSH DAILY [facility] Last Admin: 10/21/18 09:12 Dose: 40 mg Gen: NAD at rest Heart: RRR Lung: decreased breath sounds at the bases Abd: distended, (+) dressings intact, Hypoactive BS Ext: (+) edema Laboratory Results - last 24 hr 10/20/18 10/21/18 10/21/18 05:30 05:30 05:30 WBC 14.6 H RBC 3.54 L Hgb 10.5 L Hct 32.1 L MCV 90.6 MCH 29.5 MCHC 32.6 RDW 14.8 Plt Count 511 H MPV 8.0 Absolute Neuts (auto) 11.7 H Neutrophils % 80.3 Neutrophils % (Manual) 70.3 80.0 Band Neutrophils % 2.0 1.0 Lymphocytes % 10.0 D Lymphocytes % (Manual) 11.9 D 7.0 L D Monocytes % 8.8 Monocytes % (Manual) 9 10 Eosinophils % 0.5 Eosinophils % (Manual) 1.0 0.0 D Basophils % 0.4 Basophils % (Manual) 1.0 D 0.0 Myelocytes % (Man) 3 H D 0 D Promyelocytes % (Man) 0 0 Blast Cells % (Manual) 0 0 Nucleated RBC % 0 Metamyelocytes 0 1 D Hypochromia 0 0 Toxic Granulation 0 Dohle Bodies 0 Platelet Estimate Normal Increased Polychromasia 0 0 Poikilocytosis 0 0 Basophilic Stippling 0 Anisocytosis 0 0 Microcytosis 0 0 Macrocytosis 0 0 Spherocytes 0 Sickle Cells 0 Target Cells 0 Tear Drop Cells 0 Ovalocytes 0 Stomatocytes 0 Helmet Cells 0 [place] Bodies 0 Evans Rings 0 [place] Cells 0 Acanthocytes (Spur) 0 Rouleaux 0 Fragmented RBCs 0 Schistocytes 0 Sodium 137 Potassium 4.6 Chloride 103 Carbon Dioxide 26 Anion Gap 8 BUN 10 Creatinine 0.9 Creat Clearance w eGFR 89.69 Random Glucose 87 Calcium 7.9 L Total Bilirubin 0.9 AST 22 ALT 42 Alkaline Phosphatase 124 H Total Protein 4.9 L Albumin 1.7 L ASSESSMENT AND PLAN: Ruptured Appendicitis/Fecal Peritonitis s/p ex-lap/ileocecectomy/ileocolic anastamosis s/p Acute Respiratory Failure Severe Sepsis Acute Kidney Injury Lactic Acidosis Cerebral Palsy - NGT to low wall suction - ABX - NPO - IVF - monitor urine output, creatinine - pain control - incentive spirometry - rehab/PT - OOB to chair - DVT prophylaxis Dr Yang
--- NOTE | 2018-10-21 16:54 | PN ---
Progress Note, Physician History of Present Illness: abd continues to be distended ng tube still draining awake and alert - Current Medication List Current Medications: Active Medications Acetaminophen (Ofirmev Injection -) 1,000 mg IVPB Q6H PRN PRN Reason: PAIN LEVEL 7 - 10 Benzocaine/Butamben/Tetracaine HCl (Cetacaine [place] -) 1 spray TP DAILY PRN PRN Reason: SORE THROAT Benzocaine/Menthol (Cepacol Lozenge -) 1 each MM PRN PRN PRN Reason: SORE THROAT Heparin Sodium (Porcine) (Heparin -) 5,000 unit SQ BID [facility] Last Admin: 10/21/18 09:12 Dose: 5,000 unit Piperacillin Sod/Tazobactam (Sod 2.25 gm/ Dextrose) 50 mls @ 100 mls/hr IVPB Q6H-IV [facility]; Protocol Last Admin: 10/21/18 15:46 Dose: 100 mls/hr Amino Acids (Clinimix -) 1,000 mls @ 42 mls/hr IV Q12H [facility] Last Admin: 10/21/18 06:20 Dose: Not Given Metoprolol Tartrate (Lopressor -) 25 mg PO BID [facility] Last Admin: 10/21/18 09:12 Dose: Not Given Ondansetron HCl (Zofran Injection) 4 mg IVPUSH Q4H PRN PRN Reason: NAUSEA AND/OR VOMITING Last Admin: 10/17/18 16:06 Dose: 4 mg Pantoprazole Sodium (Protonix Iv) 40 mg IVPUSH DAILY [facility] Last Admin: 10/21/18 09:12 Dose: 40 mg - Objective Vital Signs: Vital Signs Temperature 98.8 F 10/21/18 13:41 Pulse Rate 86 10/21/18 13:41 Respiratory Rate 18 10/21/18 13:41 Blood Pressure 122/72 10/21/18 13:41 O2 Sat by Pulse Oximetry (%) 98 10/20/18 20:57 Constitutional: Yes: Calm Cardiovascular: Yes: S1, S2 Respiratory: Yes: Regular, Poor Air Entry (bases) Gastrointestinal: Yes: Distention, Hypoactive Bowel Sounds, Other (ng tube in place) Musculoskeletal: Yes: WNL Extremities: Yes: WNL Neurological: Yes: Alert, Oriented Psychiatric: Yes: Alert, Oriented Labs: CBC, BMP 10/21/18 05:30 10/21/18 05:30 INR, PTT INR 1.29 (0.83-1.09) H 10/11/18 20:30 Assessment/Plan Problem List - Problems (1) Bowel perforation Code(s): K63.1 - PERFORATION OF INTESTINE (NONTRAUMATIC) (2) Cerebral palsy Code(s): G80.9 - CEREBRAL PALSY, UNSPECIFIED (3) Bowel obstruction Code(s): K56.609 - UNSP INTESTNL OBST, UNSP TO PARTIAL VERSUS COMPLETE OBST (4) Renal failure Code(s): N19 - UNSPECIFIED KIDNEY FAILURE (5) Sepsis Code(s): A41.9 - SEPSIS, UNSPECIFIED ORGANISM 6 leukocytosis Ruptured Appendicitis/Fecal Peritonitis s/p ex-lap/ileocecectomy/ileocolic anastamosis s/p Acute Respiratory Failure Severe Sepsis Acute Kidney Injury Lactic Acidosis Cerebral Palsy plan continue abx wbc still high ng tube suction rest as per the team
--- NOTE | 2018-10-21 17:14 | PN ---
Progress Note, Physician History of Present Illness: comfortable - Current Medication List Current Medications: Active Medications Acetaminophen (Ofirmev Injection -) 1,000 mg IVPB Q6H PRN PRN Reason: PAIN LEVEL 7 - 10 Benzocaine/Butamben/Tetracaine HCl (Cetacaine [place] -) 1 spray TP DAILY PRN PRN Reason: SORE THROAT Benzocaine/Menthol (Cepacol Lozenge -) 1 each MM PRN PRN PRN Reason: SORE THROAT Heparin Sodium (Porcine) (Heparin -) 5,000 unit SQ BID [facility] Last Admin: 10/21/18 09:12 Dose: 5,000 unit Piperacillin Sod/Tazobactam (Sod 2.25 gm/ Dextrose) 50 mls @ 100 mls/hr IVPB Q6H-IV [facility]; Protocol Last Admin: 10/21/18 15:46 Dose: 100 mls/hr Amino Acids (Clinimix -) 1,000 mls @ 42 mls/hr IV Q12H [facility] Last Admin: 10/21/18 06:20 Dose: Not Given Metoprolol Tartrate (Lopressor -) 25 mg PO BID [facility] Last Admin: 10/21/18 09:12 Dose: Not Given Ondansetron HCl (Zofran Injection) 4 mg IVPUSH Q4H PRN PRN Reason: NAUSEA AND/OR VOMITING Last Admin: 10/17/18 16:06 Dose: 4 mg Pantoprazole Sodium (Protonix Iv) 40 mg IVPUSH DAILY [facility] Last Admin: 10/21/18 09:12 Dose: 40 mg - Objective Vital Signs: Vital Signs Temperature 98.8 F 10/21/18 13:41 Pulse Rate 75 10/21/18 16:01 Respiratory Rate 19 10/21/18 16:01 Blood Pressure 113/59 L 10/21/18 16:01 O2 Sat by Pulse Oximetry (%) 98 10/20/18 20:57 Constitutional: Yes: No Distress HENT: Yes: Atraumatic Neck: Yes: Supple Cardiovascular: Yes: Regular Rate and Rhythm Respiratory: Yes: CTA Bilaterally Gastrointestinal: Yes: Hypoactive Bowel Sounds, Other (dressing in place) Extremities: Yes: WNL Edema: No Peripheral Pulses WNL: Yes Neurological: Yes: Alert, Oriented Labs: CBC, BMP 10/21/18 05:30 10/21/18 05:30 INR, PTT INR 1.29 (0.83-1.09) H 10/11/18 20:30 Problem List - Problems (1) Appendix perforation Assessment/Plan: s/p surgery iv abx prn pain meds Code(s): K35.32 - ACUTE APPENDICITIS WITH PERF AND LOC PERITONITIS, W/O ABSCS (2) Bowel obstruction Assessment/Plan: s/p surgery ngt in place Code(s): K56.609 - UNSP INTESTNL OBST, UNSP TO PARTIAL VERSUS COMPLETE OBST Qualifiers: Intestinal obstruction type: other intestinal obstruction (3) Bowel perforation Code(s): K63.1 - PERFORATION OF INTESTINE (NONTRAUMATIC) (4) Sepsis Assessment/Plan: on abx id on board Code(s): A41.9 - SEPSIS, UNSPECIFIED ORGANISM
[2018-10-22] MEDS ORDERED: PIPERACILLIN/TAZOBACTAM 2.25 GM VIAL IVPB ONE ×2 (02:18→08:41)
[2018-10-22] MEDS ORDERED: DEXTROSE 5%-WATER - 50 ML IVPB ONE ×2 (02:18→08:42)
[2018-10-22] MEDS: PIPERACILLIN/TAZOB 2.25 GM 2.25 GM in DEXTROSE 5%-WATER - 50 ML IVPB SCH (02:30)
[2018-10-22] MEDS: AMINO ACIDS 4.25%/D5W 1,000 ML IV SCH ×2 (06:24→21:43)
[2018-10-22 06:48] LABS: BASO % 0.4 % (0-2.0); EOS % 0.6 % (0-4.5); HEMATOCRIT 33.2 % (35.4-49); LYMPH % 10.6 % (8-40); MCH 29.8 pg (25.7-33.7); MCHC 33.1 g/dl (32.0-35.9); MEAN CELL VOLUME 89.8 fl (80-96); MEAN PLT VOLUME 7.8 fl (7.5-11.1); NEUT % 80.4 % (42.8-82.8); PLATELET COUNT 577 K/MM3 (134-434); RBC 3.69 M/mm3 (4.00-5.60); RDW 14.2 % (11.9-15.9); WHITE BLOOD COUNT 15.8 K/mm3 (4.0-10.0)
[2018-10-22 07:05] LABS: ALBUMIN 1.9 g/dl (3.4-5.0); ALK PHOS 137 U/L (45-117); ANION GAP 10 MMOL/L (8-16); BILIRUBIN,TOTAL 1.3 mg/dL (0.2-1); BLOOD UREA NITROGEN 12 mg/dL (7-18); CALCIUM 8.2 mg/dL (8.5-10.1); CHLORIDE 101 mmol/L (98-107); CO2 25 mmol/L (21-32); CREATININE 0.9 mg/dL (0.55-1.3); GLUCOSE,RANDOM 89 mg/dL (74-106); POTASSIUM 4.4 mmol/L (3.5-5.1); SGOT/AST 24 U/L (15-37); SGPT/ALT 49 U/L (13-61); SODIUM 136 mmol/L (136-145); TOT PROT 5.5 g/dl (6.4-8.2)
--- NOTE | 2018-10-22 09:28 | PN ---
Progress Note, Physician Chief Complaint: abdominal pain History of Present Illness: 48 yo male PMH CP here with his mother c/o abd pain n/v. states abd pain started one week ago. initially with mild discomfort and nausea, over the last 2 days pain has progressed to vomiting . He has been stable post operatively. NGT removed last evening no additional nausea after consuming clears and he reports a loose BM this morning - Current Medication List Current Medications: Active Medications Acetaminophen (Ofirmev Injection -) 1,000 mg IVPB Q6H PRN PRN Reason: PAIN LEVEL 7 - 10 Benzocaine/Butamben/Tetracaine HCl (Cetacaine [place] -) 1 spray TP DAILY PRN PRN Reason: SORE THROAT Benzocaine/Menthol (Cepacol Lozenge -) 1 each MM PRN PRN PRN Reason: SORE THROAT Heparin Sodium (Porcine) (Heparin -) 5,000 unit SQ BID [facility] Last Admin: 10/21/18 22:14 Dose: 5,000 unit Amino Acids (Clinimix -) 1,000 mls @ 42 mls/hr IV Q12H [facility] Last Admin: 10/22/18 06:24 Dose: Not Given Metoprolol Tartrate (Lopressor -) 25 mg PO BID [facility] Last Admin: 10/21/18 22:14 Dose: 25 mg Ondansetron HCl (Zofran Injection) 4 mg IVPUSH Q4H PRN PRN Reason: NAUSEA AND/OR VOMITING Last Admin: 10/17/18 16:06 Dose: 4 mg Pantoprazole Sodium (Protonix Iv) 40 mg IVPUSH DAILY [facility] Last Admin: 10/21/18 09:12 Dose: 40 mg - Objective Vital Signs: Vital Signs Temperature 98.7 F 10/22/18 06:00 Pulse Rate 78 10/22/18 08:15 Respiratory Rate 18 10/22/18 08:15 Blood Pressure 109/63 10/22/18 08:15 O2 Sat by Pulse Oximetry (%) 95 10/21/18 21:37 Vital Signs Period Temp Pulse Resp BP Sys/Osorio Pulse Ox Last 24 Hr 97.9 F-98.8 F 75-104 17-21 109-134/59-73 95 Intake & Output 10/21/18 10/22/18 10/22/18 23:59 07:59 15:59 Intake Total 704 Output Total 400 Balance 304 Intake: IV 504 clinimix 504 IVPB 100 Oral 100 Output: Urine 400 Void 400 Other: Voiding Method Urinal Urinal Constitutional: Yes: Well Nourished, No Distress, Calm Eyes: Yes: Conjunctiva Clear, EOM Intact HENT: Yes: Atraumatic, Normocephalic Neck: Yes: Supple, Trachea Midline Cardiovascular: Yes: Regular Rate and Rhythm, S1, S2 Respiratory: Yes: Regular, CTA Bilaterally Gastrointestinal: Yes: Normal Bowel Sounds, Soft. No: Tenderness ...Rectal Exam: Yes: Deferred Genitourinary: No: CVA Tenderness - Left Breast(s): No: Discharge from Nipple, Nipple Inversion Musculoskeletal: No: Muscle Pain, Muscle Weakness Extremities: No: Cool, Cyanosis Edema: No Peripheral Pulses WNL: Yes Peripheral Pulses: Left Radial: 2+, Right Radial: 2+, Left Doralis Pedis: 2+, Right Dorsalis Pedis: 2+, Left Femoral: 2+, Right Femoral: 2+ Wound/Incision: Yes: Clean/Dry, [place] Intact, Unapproximated. No: Draining, Reddened, Bleeding Neurological: Yes: Alert, Oriented Psychiatric: Yes: Alert, Oriented Labs: CBC, BMP 10/22/18 05:30 10/22/18 05:30 INR, PTT INR 1.29 (0.83-1.09) H 10/11/18 20:30 Problem List - Problems (1) Bowel perforation Assessment/Plan: 48yo male with peritonitis and perforated viscus that will need surgical exploration POD#9 s/p Exp Lap, ileocecetomy for a ruptured appendicitis, post operative ileus full liquid diet now and advance as tolerated IVF hydration wound care orders for RN IV antibiotics per ID Adequate analgesia OOB and ambulate Discharge planning for Thursday This patient is critically ill. Time spent reviewing chart, examining patient, talking with providers and/or family and documentation is 35 minutes. Code(s): K63.1 - PERFORATION OF INTESTINE (NONTRAUMATIC) (2) Cerebral palsy Code(s): G80.9 - CEREBRAL PALSY, UNSPECIFIED (3) Bowel obstruction Code(s): K56.609 - UNSP INTESTNL OBST, UNSP TO PARTIAL VERSUS COMPLETE OBST Qualifiers: Intestinal obstruction type: other intestinal obstruction (4) Renal failure Code(s): N19 - UNSPECIFIED KIDNEY FAILURE Qualifiers: Renal failure chronicity: acute (5) Sepsis Code(s): A41.9 - SEPSIS, UNSPECIFIED ORGANISM
[2018-10-22] MEDS: HEPARIN NA (PORCINE) 5,000 UNITS/ML 1ML VIAL SQ SCH ×2 (09:36→21:43)
[2018-10-22] MEDS: METOPROLOL TARTRATE 25 MG TABLET (FP) PO SCH ×2 (09:37→21:43)
[2018-10-22] MEDS: PANTOPRAZOLE SODIUM 40 MG VIAL IVPUSH SCH (09:37)
[2018-10-22 11:24] LABS: ANISOCYTOSIS 1+; MACROCYTOSIS 0; PLATELET ESTIMATE INCREASED
--- NOTE | 2018-10-22 11:45 | PN ---
Progress Note (short form) - Note Progress Note: Patient seen and examined. NGT removed last night. Had a loose BM this AM. No CP or SOB. OBJECTIVE: Intake & Output 10/19/18 10/20/18 10/21/18 10/22/18 23:59 23:59 23:59 23:59 Intake Total 1850 2400 720 704 Output Total 1250 1400 400 Balance 600 1000 720 304 Weight 193 lb 193 lb Last Vital Signs Temp Pulse Resp BP Pulse Ox 98.7 F 78 18 109/63 95 10/22/18 06:00 10/22/18 08:15 10/22/18 08:15 10/22/18 08:15 10/21/18 21:37 Active Medications Acetaminophen (Ofirmev Injection -) 1,000 mg IVPB Q6H PRN PRN Reason: PAIN LEVEL 7 - 10 Benzocaine/Butamben/Tetracaine HCl (Cetacaine [place] -) 1 spray TP DAILY PRN PRN Reason: SORE THROAT Benzocaine/Menthol (Cepacol Lozenge -) 1 each MM PRN PRN PRN Reason: SORE THROAT Heparin Sodium (Porcine) (Heparin -) 5,000 unit SQ BID [facility] Last Admin: 10/22/18 09:36 Dose: 5,000 unit Amino Acids (Clinimix -) 1,000 mls @ 42 mls/hr IV Q12H [facility] Last Admin: 10/22/18 06:24 Dose: Not Given Metoprolol Tartrate (Lopressor -) 25 mg PO BID [facility] Last Admin: 10/22/18 09:37 Dose: 25 mg Ondansetron HCl (Zofran Injection) 4 mg IVPUSH Q4H PRN PRN Reason: NAUSEA AND/OR VOMITING Last Admin: 10/17/18 16:06 Dose: 4 mg Pantoprazole Sodium (Protonix Iv) 40 mg IVPUSH DAILY [facility] Last Admin: 10/22/18 09:37 Dose: 40 mg Gen: NAD at rest Heart: RRR Lung: decreased breath sounds at the bases Abd: less distention, (+) BS Ext: (+) edema Laboratory Results - last 24 hr 10/21/18 10/22/18 10/22/18 05:30 05:30 05:30 WBC 15.8 H RBC 3.69 L Hgb 11.0 L Hct 33.2 L MCV 89.8 MCH 29.8 MCHC 33.1 RDW 14.2 Plt Count 577 H MPV 7.8 Absolute Neuts (auto) 12.7 H Neutrophils % 80.4 Neutrophils % (Manual) 80.0 79.2 Band Neutrophils % 1.0 0.0 Lymphocytes % 10.6 Lymphocytes % (Manual) 7.0 L D 10.9 D Monocytes % 8.0 Monocytes % (Manual) 10 7 Eosinophils % 0.6 Eosinophils % (Manual) 0.0 D 1.0 D Basophils % 0.4 Basophils % (Manual) 0.0 0.0 Myelocytes % (Man) 0 D 0 Promyelocytes % (Man) 0 0 Blast Cells % (Manual) 0 0 Nucleated RBC % 0 Metamyelocytes 1 D 1 Hypochromia 0 0 Platelet Estimate Increased Increased Polychromasia 0 0 Poikilocytosis 0 0 Anisocytosis 0 1+ Microcytosis 0 1+ Macrocytosis 0 0 Sodium 136 Potassium 4.4 Chloride 101 Carbon Dioxide 25 Anion Gap 10 BUN 12 Creatinine 0.9 Creat Clearance w eGFR 89.69 Random Glucose 89 Calcium 8.2 L Total Bilirubin 1.3 H AST 24 ALT 49 Alkaline Phosphatase 137 H Total Protein 5.5 L Albumin 1.9 L ASSESSMENT AND PLAN: Ruptured Appendicitis/Fecal Peritonitis s/p ex-lap/ileocecectomy/ileocolic anastamosis s/p Acute Respiratory Failure Severe Sepsis Acute Kidney Injury Lactic Acidosis Cerebral Palsy - PO as tolerated per surgery - Off ABX - Consider D/C Clinimix in the next few days - incentive spirometry - rehab/PT - OOB to chair - DVT prophylaxis - Monitor off PPI for now Dr Yang
--- NOTE | 2018-10-22 12:04 | PN ---
Progress Note, Physician History of Present Illness: Remains in SR, afebrile, tolerating meals and having BM. NGT is out. - Current Medication List Current Medications: Active Medications Acetaminophen (Ofirmev Injection -) 1,000 mg IVPB Q6H PRN PRN Reason: PAIN LEVEL 7 - 10 Benzocaine/Butamben/Tetracaine HCl (Cetacaine [place] -) 1 spray TP DAILY PRN PRN Reason: SORE THROAT Benzocaine/Menthol (Cepacol Lozenge -) 1 each MM PRN PRN PRN Reason: SORE THROAT Heparin Sodium (Porcine) (Heparin -) 5,000 unit SQ BID [facility] Last Admin: 10/22/18 09:36 Dose: 5,000 unit Amino Acids (Clinimix -) 1,000 mls @ 42 mls/hr IV Q12H [facility] Last Admin: 10/22/18 06:24 Dose: Not Given Metoprolol Tartrate (Lopressor -) 25 mg PO BID [facility] Last Admin: 10/22/18 09:37 Dose: 25 mg Ondansetron HCl (Zofran Injection) 4 mg IVPUSH Q4H PRN PRN Reason: NAUSEA AND/OR VOMITING Last Admin: 10/17/18 16:06 Dose: 4 mg Pantoprazole Sodium (Protonix Iv) 40 mg IVPUSH DAILY [facility] Last Admin: 10/22/18 09:37 Dose: 40 mg - Objective Vital Signs: Vital Signs Temperature 98.7 F 10/22/18 06:00 Pulse Rate 78 10/22/18 08:15 Respiratory Rate 18 10/22/18 08:15 Blood Pressure 109/63 10/22/18 08:15 O2 Sat by Pulse Oximetry (%) 95 10/21/18 21:37 Constitutional: Yes: No Distress, Calm Neck: Yes: Supple Cardiovascular: Yes: Regular Rate and Rhythm Respiratory: Yes: Regular, CTA Bilaterally Gastrointestinal: Yes: Normal Bowel Sounds, Soft Edema: No Labs: CBC, BMP 10/22/18 05:30 10/22/18 05:30 INR, PTT INR 1.29 (0.83-1.09) H 10/11/18 20:30 - ....Imaging EKG: Report Reviewed (Tele: NSR) Problem List - Problems (1) Paroxysmal atrial fibrillation with rapid ventricular response Code(s): I48.0 - PAROXYSMAL ATRIAL FIBRILLATION (2) Appendix perforation Code(s): K35.32 - ACUTE APPENDICITIS WITH PERF AND LOC PERITONITIS, W/O ABSCS (3) Bowel perforation Code(s): K63.1 - PERFORATION OF INTESTINE (NONTRAUMATIC) (4) Cerebral palsy Code(s): G80.9 - CEREBRAL PALSY, UNSPECIFIED (5) PSVT (paroxysmal supraventricular tachycardia) Code(s): I47.1 - SUPRAVENTRICULAR TACHYCARDIA (6) Sepsis Code(s): A41.9 - SEPSIS, UNSPECIFIED ORGANISM (7) Acute kidney injury Code(s): N17.9 - ACUTE KIDNEY FAILURE, UNSPECIFIED Assessment/Plan 10/12/2018 Normal biventricular size and fxn, mild MR, tr SC 1. Pneumo-peritoneum due to bowel perforation/fecal peritonitis/SBO post Exp-Lap , ileocecetomy for a ruptured appendicitis 2. PAF [id number] score of 0 and PSVT currently in sinus rhythm 3. Leukocytosis, improving 4. Post acute respiratory failure 5. History of Cerebral palsy 6. Acute renal insufficiency due to sepsis syndrome/resolved PLAN: 1. No indications for long tern anticoagulation considering the above noted [id number] score of 0 and recommend ASA unless contraindicated 2. completed antibiotic course per ID 3. Advance diet as tolerated, d/c Clinimix 4. DVT prophylaxis
--- NOTE | 2018-10-22 14:11 | PN ---
Progress Note, Physician History of Present Illness: patients ng tube is removed still abd distension hypoactive bowel sounds - Current Medication List Current Medications: Active Medications Acetaminophen (Ofirmev Injection -) 1,000 mg IVPB Q6H PRN PRN Reason: PAIN LEVEL 7 - 10 Benzocaine/Butamben/Tetracaine HCl (Cetacaine [place] -) 1 spray TP DAILY PRN PRN Reason: SORE THROAT Benzocaine/Menthol (Cepacol Lozenge -) 1 each MM PRN PRN PRN Reason: SORE THROAT Heparin Sodium (Porcine) (Heparin -) 5,000 unit SQ BID [facility] Last Admin: 10/22/18 09:36 Dose: 5,000 unit Amino Acids (Clinimix -) 1,000 mls @ 42 mls/hr IV Q12H [facility] Last Admin: 10/22/18 06:24 Dose: Not Given Metoprolol Tartrate (Lopressor -) 25 mg PO BID [facility] Last Admin: 10/22/18 09:37 Dose: 25 mg Ondansetron HCl (Zofran Injection) 4 mg IVPUSH Q4H PRN PRN Reason: NAUSEA AND/OR VOMITING Last Admin: 10/17/18 16:06 Dose: 4 mg Pantoprazole Sodium (Protonix Iv) 40 mg IVPUSH DAILY [facility] Last Admin: 10/22/18 09:37 Dose: 40 mg - Objective Vital Signs: Vital Signs Temperature 97.6 F 10/22/18 13:49 Pulse Rate 78 10/22/18 13:49 Respiratory Rate 18 10/22/18 13:49 Blood Pressure 95/72 10/22/18 13:49 O2 Sat by Pulse Oximetry (%) 95 10/21/18 21:37 Constitutional: Yes: No Distress, Calm Cardiovascular: Yes: S1, S2 Respiratory: Yes: Regular, Poor Air Entry (bases) Gastrointestinal: Yes: Distention, Hypoactive Bowel Sounds Musculoskeletal: Yes: WNL Extremities: Yes: WNL Neurological: Yes: Alert, Oriented Psychiatric: Yes: Alert, Oriented Labs: CBC, BMP 10/22/18 05:30 10/22/18 05:30 INR, PTT INR 1.29 (0.83-1.09) H 10/11/18 20:30 Assessment/Plan Problem List - Problems (1) Bowel perforation Code(s): K63.1 - PERFORATION OF INTESTINE (NONTRAUMATIC) (2) Cerebral palsy Code(s): G80.9 - CEREBRAL PALSY, UNSPECIFIED (3) Bowel obstruction Code(s): K56.609 - UNSP INTESTNL OBST, UNSP TO PARTIAL VERSUS COMPLETE OBST (4) Renal failure Code(s): N19 - UNSPECIFIED KIDNEY FAILURE (5) Sepsis Code(s): A41.9 - SEPSIS, UNSPECIFIED ORGANISM 6 leukocytosis Ruptured Appendicitis/Fecal Peritonitis s/p ex-lap/ileocecectomy/ileocolic anastamosis s/p Acute Respiratory Failure Severe Sepsis Acute Kidney Injury Lactic Acidosis Cerebral Palsy wbc still high plan will see how patient does off of abx monitor closely incentive lesia rest as per the team
--- NOTE | 2018-10-22 19:37 | PN ---
Progress Note, Physician History of Present Illness: comfortable had full liquid diet - Current Medication List Current Medications: Active Medications Acetaminophen (Ofirmev Injection -) 1,000 mg IVPB Q6H PRN PRN Reason: PAIN LEVEL 7 - 10 Benzocaine/Butamben/Tetracaine HCl (Cetacaine [place] -) 1 spray TP DAILY PRN PRN Reason: SORE THROAT Benzocaine/Menthol (Cepacol Lozenge -) 1 each MM PRN PRN PRN Reason: SORE THROAT Heparin Sodium (Porcine) (Heparin -) 5,000 unit SQ BID [facility] Last Admin: 10/22/18 09:36 Dose: 5,000 unit Amino Acids (Clinimix -) 1,000 mls @ 42 mls/hr IV Q12H [facility] Last Admin: 10/22/18 06:24 Dose: Not Given Metoprolol Tartrate (Lopressor -) 25 mg PO BID [facility] Last Admin: 10/22/18 09:37 Dose: 25 mg Ondansetron HCl (Zofran Injection) 4 mg IVPUSH Q4H PRN PRN Reason: NAUSEA AND/OR VOMITING Last Admin: 10/17/18 16:06 Dose: 4 mg Pantoprazole Sodium (Protonix Iv) 40 mg IVPUSH DAILY [facility] Last Admin: 10/22/18 09:37 Dose: 40 mg - Objective Vital Signs: Vital Signs Temperature 97.6 F 10/22/18 13:49 Pulse Rate 78 10/22/18 17:00 Respiratory Rate 18 10/22/18 17:00 Blood Pressure 123/67 10/22/18 17:00 O2 Sat by Pulse Oximetry (%) 95 10/21/18 21:37 Constitutional: Yes: No Distress HENT: Yes: Atraumatic Neck: Yes: Supple Cardiovascular: Yes: Regular Rate and Rhythm Respiratory: Yes: CTA Bilaterally Gastrointestinal: Yes: Hypoactive Bowel Sounds Extremities: Yes: WNL Edema: No Peripheral Pulses WNL: Yes Neurological: Yes: Alert, Oriented Labs: CBC, BMP 10/22/18 05:30 10/22/18 05:30 INR, PTT INR 1.29 (0.83-1.09) H 10/11/18 20:30 Problem List - Problems (1) Appendix perforation Assessment/Plan: s/p surgery iv abx prn pain meds Code(s): K35.32 - ACUTE APPENDICITIS WITH PERF AND LOC PERITONITIS, W/O ABSCS (2) Bowel obstruction Assessment/Plan: on full liquid diet now Code(s): K56.609 - UNSP INTESTNL OBST, UNSP TO PARTIAL VERSUS COMPLETE OBST Qualifiers: Intestinal obstruction type: other intestinal obstruction (3) Bowel perforation Code(s): K63.1 - PERFORATION OF INTESTINE (NONTRAUMATIC) (4) Sepsis Assessment/Plan: on abx id on board Code(s): A41.9 - SEPSIS, UNSPECIFIED ORGANISM Assessment/Plan DIAGNOSIS Ruptured Appendicitis/Fecal Peritonitis s/p ex-lap/ileocecectomy/ileocolic anastamosis s/p Acute Respiratory Failure Severe Sepsis Acute Kidney Injury Lactic Acidosis Cerebral Palsy CC TIME 30 min - p
[2018-10-22] MEDS ORDERED: PT OWN MED DRAWER 7, Y5N ONE (21:39)
[2018-10-23] MEDS: AMINO ACIDS 4.25%/D5W 1,000 ML IV SCH ×3 (05:06→22:42)
[2018-10-23 06:49] LABS: BASO % 0.5 % (0-2.0); EOS % 0.5 % (0-4.5); HEMATOCRIT 33.9 % (35.4-49); HEMOGLOBIN 10.9 GM/dL (11.7-16.9); LYMPH % 11.2 % (8-40); MCH 28.9 pg (25.7-33.7); MCHC 32.3 g/dl (32.0-35.9); MEAN CELL VOLUME 89.8 fl (80-96); MEAN PLT VOLUME 7.7 fl (7.5-11.1); MONO % 8.3 % (3.8-10.2); NEUT % 79.5 % (42.8-82.8); PLATELET COUNT 625 K/MM3 (134-434); RBC 3.78 M/mm3 (4.00-5.60); RDW 14.6 % (11.9-15.9); WHITE BLOOD COUNT 15.8 K/mm3 (4.0-10.0)
[2018-10-23 07:15] LABS: ALK PHOS 124 U/L (45-117); ANION GAP 8 MMOL/L (8-16); BILIRUBIN,TOTAL 0.7 mg/dL (0.2-1); BLOOD UREA NITROGEN 12 mg/dL (7-18); CALCIUM 8.1 mg/dL (8.5-10.1); CHLORIDE 100 mmol/L (98-107); CO2 27 mmol/L (21-32); CREATININE 0.9 mg/dL (0.55-1.3); GLUCOSE,RANDOM 93 mg/dL (74-106); POTASSIUM 4.4 mmol/L (3.5-5.1); SGOT/AST 23 U/L (15-37); SGPT/ALT 48 U/L (13-61); SODIUM 135 mmol/L (136-145); TOT PROT 5.5 g/dl (6.4-8.2)
[2018-10-23] MEDS: HEPARIN NA (PORCINE) 5,000 UNITS/ML 1ML VIAL SQ SCH ×2 (09:59→22:32)
[2018-10-23] MEDS: METOPROLOL TARTRATE 25 MG TABLET (FP) PO SCH ×2 (09:59→22:32)
[2018-10-23] MEDS: PANTOPRAZOLE SODIUM 40 MG VIAL IVPUSH SCH (09:59)
--- NOTE | 2018-10-23 11:51 | PN ---
Progress Note (short form) - Note Progress Note: Patient seen and examined. Tolerated some clears this AM. Abdomen still distended but slowly improving. No CP or SOB. OBJECTIVE: Intake & Output 10/20/18 10/21/18 10/22/18 10/23/18 23:59 23:59 23:59 23:59 Intake Total 2400 720 1504 Output Total 1400 1000 Balance 1000 720 504 Weight 193 lb Last Vital Signs Temp Pulse Resp BP Pulse Ox 98.4 F 76 21 H 115/75 96 10/23/18 08:00 10/23/18 08:00 10/23/18 08:00 10/23/18 08:00 10/23/18 08:00 Active Medications Acetaminophen (Ofirmev Injection -) 1,000 mg IVPB Q6H PRN PRN Reason: PAIN LEVEL 7 - 10 Benzocaine/Butamben/Tetracaine HCl (Cetacaine [place] -) 1 spray TP DAILY PRN PRN Reason: SORE THROAT Benzocaine/Menthol (Cepacol Lozenge -) 1 each MM PRN PRN PRN Reason: SORE THROAT Heparin Sodium (Porcine) (Heparin -) 5,000 unit SQ BID [facility] Last Admin: 10/23/18 09:59 Dose: 5,000 unit Amino Acids (Clinimix -) 1,000 mls @ 42 mls/hr IV Q12H [facility] Last Admin: 10/23/18 05:06 Dose: Not Given Metoprolol Tartrate (Lopressor -) 25 mg PO BID [facility] Last Admin: 10/23/18 09:59 Dose: 25 mg Ondansetron HCl (Zofran Injection) 4 mg IVPUSH Q4H PRN PRN Reason: NAUSEA AND/OR VOMITING Last Admin: 10/17/18 16:06 Dose: 4 mg Pantoprazole Sodium (Protonix Iv) 40 mg IVPUSH DAILY [facility] Last Admin: 10/23/18 09:59 Dose: 40 mg Gen: NAD at rest Heart: RRR Lung: decreased breath sounds at the bases Abd: less distention, (+) BS Ext: (+) edema Laboratory Results - last 24 hr 10/23/18 10/23/18 05:30 05:30 WBC 15.8 H RBC 3.78 L Hgb 10.9 L Hct 33.9 L MCV 89.8 MCH 28.9 MCHC 32.3 RDW 14.6 Plt Count 625 H MPV 7.7 Absolute Neuts (auto) 12.6 H Neutrophils % 79.5 Lymphocytes % 11.2 Monocytes % 8.3 Eosinophils % 0.5 Basophils % 0.5 Nucleated RBC % 0 Sodium 135 L Potassium 4.4 Chloride 100 Carbon Dioxide 27 Anion Gap 8 BUN 12 Creatinine 0.9 Creat Clearance w eGFR 89.69 Random Glucose 93 Calcium 8.1 L Total Bilirubin 0.7 AST 23 ALT 48 Alkaline Phosphatase 124 H Total Protein 5.5 L Albumin 2.0 L ASSESSMENT AND PLAN: Ruptured Appendicitis/Fecal Peritonitis s/p ex-lap/ileocecectomy/ileocolic anastamosis s/p Acute Respiratory Failure Severe Sepsis Acute Kidney Injury Lactic Acidosis Cerebral Palsy - PO as tolerated per surgery - Off ABX - incentive spirometry - rehab/PT - OOB to chair - DVT prophylaxis - Monitor off PPI Dr Yang
--- NOTE | 2018-10-23 12:14 | PN ---
Progress Note, Physician Chief Complaint: abdominal pain History of Present Illness: 48 yo male PMH CP here with his mother c/o abd pain n/v. states abd pain started one week ago. initially with mild discomfort and nausea, over the last 2 days pain has progressed to vomiting . He has been stable post operatively. consuming clears and he reports a loose BM. - Current Medication List Current Medications: Active Medications Acetaminophen (Ofirmev Injection -) 1,000 mg IVPB Q6H PRN PRN Reason: PAIN LEVEL 7 - 10 Benzocaine/Butamben/Tetracaine HCl (Cetacaine [place] -) 1 spray TP DAILY PRN PRN Reason: SORE THROAT Benzocaine/Menthol (Cepacol Lozenge -) 1 each MM PRN PRN PRN Reason: SORE THROAT Heparin Sodium (Porcine) (Heparin -) 5,000 unit SQ BID [facility] Last Admin: 10/23/18 09:59 Dose: 5,000 unit Amino Acids (Clinimix -) 1,000 mls @ 42 mls/hr IV Q12H [facility] Last Admin: 10/23/18 05:06 Dose: Not Given Metoprolol Tartrate (Lopressor -) 25 mg PO BID [facility] Last Admin: 10/23/18 09:59 Dose: 25 mg Ondansetron HCl (Zofran Injection) 4 mg IVPUSH Q4H PRN PRN Reason: NAUSEA AND/OR VOMITING Last Admin: 10/17/18 16:06 Dose: 4 mg Pantoprazole Sodium (Protonix Iv) 40 mg IVPUSH DAILY [facility] Last Admin: 10/23/18 09:59 Dose: 40 mg - Objective Vital Signs: Vital Signs Temperature 98.4 F 10/23/18 08:00 Pulse Rate 76 10/23/18 08:00 Respiratory Rate 21 H 10/23/18 08:00 Blood Pressure 115/75 10/23/18 08:00 O2 Sat by Pulse Oximetry (%) 96 10/23/18 08:00 Vital Signs Period Temp Pulse Resp BP Sys/Osorio Pulse Ox Last 24 Hr 97.4 F-98.0 F 75-90 20-24 114-131/59-76 94-94 Constitutional: Yes: Well Nourished, No Distress Eyes: Yes: Conjunctiva Clear, EOM Intact HENT: Yes: Atraumatic, Normocephalic Neck: Yes: Supple, Trachea Midline Cardiovascular: Yes: Regular Rate and Rhythm, S1, S2 Respiratory: Yes: Regular, CTA Bilaterally Gastrointestinal: Yes: Normal Bowel Sounds, Soft. No: Tenderness, Tenderness, Epigastrium ...Rectal Exam: Yes: Deferred Genitourinary: No: CVA Tenderness - Left, CVA Tenderness - Right Musculoskeletal: No: Back Pain, Muscle Pain, Muscle Weakness Extremities: No: Cool, Cyanosis Edema: No Peripheral Pulses WNL: Yes Peripheral Pulses: Left Radial: 2+, Right Radial: 2+, Left Doralis Pedis: 2+, Right Dorsalis Pedis: 2+, Left Femoral: 2+, Right Femoral: 2+ Integumentary: No: Erythema, Incision, Jaundice Wound/Incision: Yes: Clean/Dry, Dressing Dry and Intact, Unapproximated Neurological: Yes: Alert, Oriented Psychiatric: Yes: Alert, Oriented Labs: CBC, BMP 10/23/18 05:30 10/23/18 05:30 INR, PTT INR 1.29 (0.83-1.09) H 10/11/18 20:30 Problem List - Problems (1) Bowel perforation Assessment/Plan: 48yo male with peritonitis and perforated viscus that will need surgical exploration POD#11 s/p Exp Lap, ileocecetomy for a ruptured appendicitis, post operative ileus. Now resuemd Gi function. no fevers, WBC 17 now 10.9, tolerating diet. diet as tolerated IVF hydration wound care orders for RN Consider repeat CT scan Abd Pelv with IV and PO given peristance of leukocytosis IV antibiotics per ID Adequate analgesia OOB and ambulate Discharge planning for Thursday Code(s): K63.1 - PERFORATION OF INTESTINE (NONTRAUMATIC) (2) Cerebral palsy Code(s): G80.9 - CEREBRAL PALSY, UNSPECIFIED (3) Bowel obstruction Code(s): K56.609 - UNSP INTESTNL OBST, UNSP TO PARTIAL VERSUS COMPLETE OBST Qualifiers: Intestinal obstruction type: other intestinal obstruction (4) Renal failure Code(s): N19 - UNSPECIFIED KIDNEY FAILURE Qualifiers: Renal failure chronicity: acute (5) Sepsis Code(s): A41.9 - SEPSIS, UNSPECIFIED ORGANISM
--- NOTE | 2018-10-23 14:51 | PN ---
Progress Note, Physician History of Present Illness: Remains in SR, afebrile, tolerating meals and having flatus, abd distension slowly improving. - Current Medication List Current Medications: Active Medications Acetaminophen (Ofirmev Injection -) 1,000 mg IVPB Q6H PRN PRN Reason: PAIN LEVEL 7 - 10 Benzocaine/Butamben/Tetracaine HCl (Cetacaine [place] -) 1 spray TP DAILY PRN PRN Reason: SORE THROAT Benzocaine/Menthol (Cepacol Lozenge -) 1 each MM PRN PRN PRN Reason: SORE THROAT Heparin Sodium (Porcine) (Heparin -) 5,000 unit SQ BID [facility] Last Admin: 10/23/18 09:59 Dose: 5,000 unit Amino Acids (Clinimix -) 1,000 mls @ 42 mls/hr IV Q12H [facility] Last Admin: 10/23/18 05:06 Dose: Not Given Metoprolol Tartrate (Lopressor -) 25 mg PO BID [facility] Last Admin: 10/23/18 09:59 Dose: 25 mg Ondansetron HCl (Zofran Injection) 4 mg IVPUSH Q4H PRN PRN Reason: NAUSEA AND/OR VOMITING Last Admin: 10/17/18 16:06 Dose: 4 mg Pantoprazole Sodium (Protonix Iv) 40 mg IVPUSH DAILY [facility] Last Admin: 10/23/18 09:59 Dose: 40 mg - Objective Vital Signs: Vital Signs Temperature 98.4 F 10/23/18 08:00 Pulse Rate 80 10/23/18 12:00 Respiratory Rate 24 H 10/23/18 12:00 Blood Pressure 115/66 10/23/18 12:00 O2 Sat by Pulse Oximetry (%) 96 10/23/18 08:00 Constitutional: Yes: No Distress, Calm, Thin Neck: Yes: Supple Cardiovascular: Yes: Regular Rate and Rhythm Respiratory: Yes: Regular, Diminished Gastrointestinal: Yes: Soft, Distention, Hypoactive Bowel Sounds Edema: No Labs: CBC, BMP 10/23/18 05:30 10/23/18 05:30 INR, PTT INR 1.29 (0.83-1.09) H 10/11/18 20:30 Problem List - Problems (1) Paroxysmal atrial fibrillation with rapid ventricular response Code(s): I48.0 - PAROXYSMAL ATRIAL FIBRILLATION (2) Appendix perforation Code(s): K35.32 - ACUTE APPENDICITIS WITH PERF AND LOC PERITONITIS, W/O ABSCS (3) Bowel perforation Code(s): K63.1 - PERFORATION OF INTESTINE (NONTRAUMATIC) (4) Cerebral palsy Code(s): G80.9 - CEREBRAL PALSY, UNSPECIFIED (5) PSVT (paroxysmal supraventricular tachycardia) Code(s): I47.1 - SUPRAVENTRICULAR TACHYCARDIA (6) Sepsis Code(s): A41.9 - SEPSIS, UNSPECIFIED ORGANISM (7) Acute kidney injury Code(s): N17.9 - ACUTE KIDNEY FAILURE, UNSPECIFIED Assessment/Plan 10/12/2018 Normal biventricular size and fxn, mild MR, tr MS 1. Pneumo-peritoneum due to bowel perforation/fecal peritonitis/SBO post Exp-Lap , ileocecetomy for a ruptured appendicitis with post-op ileus 2. PAF [id number] score of 0 and PSVT currently in sinus rhythm 3. Leukocytosis, improving 4. Post acute respiratory failure 5. History of Cerebral palsy 6. Acute renal insufficiency due to sepsis syndrome/resolved PLAN: 1. No indications for long tern anticoagulation considering the above noted [id number] score of 0 and recommend ASA unless contraindicated 2. Completed antibiotic course per ID 3. Advance diet as tolerated, d/c Clinimix 4. DVT prophylaxis 5. Encourage ambulation
[2018-10-23] MEDS: ONDANSETRON 4 MG/2 ML VIAL IVPUSH PRN ×2 (16:52→22:33)
--- NOTE | 2018-10-23 20:37 | PN ---
Progress Note, Physician History of Present Illness: Pt seen and examined, events noted. Pt is alert, afebrile, without acute distress. Abd remains distended but had BM yesterday, c/o generalized discomfort. - Current Medication List Current Medications: Active Medications Acetaminophen (Ofirmev Injection -) 1,000 mg IVPB Q6H PRN PRN Reason: PAIN LEVEL 7 - 10 Benzocaine/Butamben/Tetracaine HCl (Cetacaine [place] -) 1 spray TP DAILY PRN PRN Reason: SORE THROAT Benzocaine/Menthol (Cepacol Lozenge -) 1 each MM PRN PRN PRN Reason: SORE THROAT Heparin Sodium (Porcine) (Heparin -) 5,000 unit SQ BID [facility] Last Admin: 10/23/18 09:59 Dose: 5,000 unit Amino Acids (Clinimix -) 1,000 mls @ 42 mls/hr IV Q12H [facility] Last Admin: 10/23/18 17:09 Dose: 42 mls/hr Metoprolol Tartrate (Lopressor -) 25 mg PO BID [facility] Last Admin: 10/23/18 09:59 Dose: 25 mg Ondansetron HCl (Zofran Injection) 4 mg IVPUSH Q4H PRN PRN Reason: NAUSEA AND/OR VOMITING Last Admin: 10/23/18 16:52 Dose: 4 mg Pantoprazole Sodium (Protonix Iv) 40 mg IVPUSH DAILY [facility] Last Admin: 10/23/18 09:59 Dose: 40 mg - Objective Vital Signs: Vital Signs Temperature 98.0 F 10/23/18 18:17 Pulse Rate 85 10/23/18 18:17 Respiratory Rate 22 H 10/23/18 18:17 Blood Pressure 120/74 10/23/18 18:17 O2 Sat by Pulse Oximetry (%) 96 10/23/18 08:00 Constitutional: Yes: No Distress, Calm Cardiovascular: Yes: Regular Rate and Rhythm Respiratory: Yes: Regular Gastrointestinal: Yes: Soft, Distention, Hyperactive Bowel Sounds Integumentary: Yes: WNL Neurological: Yes: Alert Labs: CBC, BMP 10/23/18 05:30 10/23/18 05:30 INR, PTT INR 1.29 (0.83-1.09) H 10/11/18 20:30 Microbiology 10/11/18 19:30 Peritoneal Fluid Gram Stain - Final 10/11/18 19:30 Peritoneal Fluid Body Fluid Culture - Final Streptococcus Constellatus 10/11/18 19:30 Peritoneal Fluid Anaerobic Culture - Final NO ANAEROBES WERE ISOLATED 10/11/18 12:30 Blood - Peripheral Venous Blood Culture - Final NO GROWTH AFTER 5 DAYS INCUBATION 10/11/18 12:45 Blood - Peripheral Venous Blood Culture - Final NO GROWTH AFTER 5 DAYS INCUBATION 10/11/18 14:29 Urine - Urine Clean Catch Urine Culture - Final NO GROWTH OBTAINED 10/11/18 10:41 Throat Throat Culture - Final NO BETA HEMOLYTIC STREPTOCOCCI ISOLATED Problem List - Problems (1) Acute kidney injury Code(s): N17.9 - ACUTE KIDNEY FAILURE, UNSPECIFIED (2) Appendix perforation Code(s): K35.32 - ACUTE APPENDICITIS WITH PERF AND LOC PERITONITIS, W/O ABSCS (3) Bowel obstruction Code(s): K56.609 - UNSP INTESTNL OBST, UNSP TO PARTIAL VERSUS COMPLETE OBST Qualifiers: Intestinal obstruction type: other intestinal obstruction (4) Bowel perforation Code(s): K63.1 - PERFORATION OF INTESTINE (NONTRAUMATIC) (5) Cerebral palsy Code(s): G80.9 - CEREBRAL PALSY, UNSPECIFIED (6) Renal failure Code(s): N19 - UNSPECIFIED KIDNEY FAILURE Qualifiers: Renal failure chronicity: acute (7) Sepsis Code(s): A41.9 - SEPSIS, UNSPECIFIED ORGANISM Assessment/Plan Appendicitis with rupture /Fecal Peritonitis s/p ex-lap/ileocecectomy/ileocolic anastamosis Sepsis s/p respiratory failure TITI Cerebral Palsy Leukocytosis -- Pt is alert, afebrile -- wbc remains mildly elevated, repeat cbc and monitor -- monitor off antibiotics for now -- surgical follow up Vitals currently stable
--- NOTE | 2018-10-23 21:54 | PN ---
Progress Note, Physician History of Present Illness: No new complaints - Current Medication List Current Medications: Active Medications Acetaminophen (Ofirmev Injection -) 1,000 mg IVPB Q6H PRN PRN Reason: PAIN LEVEL 7 - 10 Benzocaine/Butamben/Tetracaine HCl (Cetacaine [place] -) 1 spray TP DAILY PRN PRN Reason: SORE THROAT Benzocaine/Menthol (Cepacol Lozenge -) 1 each MM PRN PRN PRN Reason: SORE THROAT Heparin Sodium (Porcine) (Heparin -) 5,000 unit SQ BID [facility] Last Admin: 10/23/18 09:59 Dose: 5,000 unit Amino Acids (Clinimix -) 1,000 mls @ 42 mls/hr IV Q12H [facility] Last Admin: 10/23/18 17:09 Dose: 42 mls/hr Metoprolol Tartrate (Lopressor -) 25 mg PO BID [facility] Last Admin: 10/23/18 09:59 Dose: 25 mg Ondansetron HCl (Zofran Injection) 4 mg IVPUSH Q4H PRN PRN Reason: NAUSEA AND/OR VOMITING Last Admin: 10/23/18 16:52 Dose: 4 mg Pantoprazole Sodium (Protonix Iv) 40 mg IVPUSH DAILY [facility] Last Admin: 10/23/18 09:59 Dose: 40 mg - Objective Vital Signs: Vital Signs Temperature 98.0 F 10/23/18 18:17 Pulse Rate 85 10/23/18 18:17 Respiratory Rate 22 H 10/23/18 18:17 Blood Pressure 120/74 10/23/18 18:17 O2 Sat by Pulse Oximetry (%) 96 10/23/18 08:00 Neck: Yes: WNL, Supple Cardiovascular: Yes: WNL, Regular Rate and Rhythm Respiratory: Yes: WNL, Regular, CTA Bilaterally Gastrointestinal: Yes: Normal Bowel Sounds, Soft Edema: No Labs: CBC, BMP 10/23/18 05:30 10/23/18 05:30 INR, PTT INR 1.29 (0.83-1.09) H 10/11/18 20:30 Problem List - Problems (1) Appendix perforation Assessment/Plan: S/P exp lap/ileocectomy Pneumo-peritoneum Pt tolerating diet Code(s): K35.32 - ACUTE APPENDICITIS WITH PERF AND LOC PERITONITIS, W/O ABSCS (2) Sepsis Code(s): A41.9 - SEPSIS, UNSPECIFIED ORGANISM (3) Cerebral palsy Code(s): G80.9 - CEREBRAL PALSY, UNSPECIFIED (4) Paroxysmal atrial fibrillation with rapid ventricular response Code(s): I48.0 - PAROXYSMAL ATRIAL FIBRILLATION
[2018-10-24 07:46] LABS: BASO % 0.3 % (0-2.0); EOS % 0.3 % (0-4.5); HEMATOCRIT 33.1 % (35.4-49); HEMOGLOBIN 10.8 GM/dL (11.7-16.9); MCH 29.3 pg (25.7-33.7); MCHC 32.6 g/dl (32.0-35.9); MEAN CELL VOLUME 89.8 fl (80-96); MEAN PLT VOLUME 7.8 fl (7.5-11.1); MONO % 7.1 % (3.8-10.2); NEUT % 84.3 % (42.8-82.8); PLATELET COUNT 571 K/MM3 (134-434); RBC 3.69 M/mm3 (4.00-5.60); RDW 14.2 % (11.9-15.9); WHITE BLOOD COUNT 17.6 K/mm3 (4.0-10.0)
[2018-10-24 08:22] LABS: ALK PHOS 139 U/L (45-117); ANION GAP 8 MMOL/L (8-16); BILIRUBIN,TOTAL 0.5 mg/dL (0.2-1); BLOOD UREA NITROGEN 17 mg/dL (7-18); CALCIUM 7.8 mg/dL (8.5-10.1); CHLORIDE 101 mmol/L (98-107); CO2 26 mmol/L (21-32); CREATININE 0.9 mg/dL (0.55-1.3); GLUCOSE,RANDOM 96 mg/dL (74-106); POTASSIUM 4.2 mmol/L (3.5-5.1); SGOT/AST 40 U/L (15-37); SGPT/ALT 67 U/L (13-61); SODIUM 135 mmol/L (136-145); TOT PROT 5.3 g/dl (6.4-8.2)
[2018-10-24] MEDS: METOPROLOL TARTRATE 25 MG TABLET (FP) PO SCH ×2 (10:38→21:27)
[2018-10-24] MEDS: HEPARIN NA (PORCINE) 5,000 UNITS/ML 1ML VIAL SQ SCH ×2 (10:38→21:27)
[2018-10-24] MEDS: PANTOPRAZOLE SODIUM 40 MG VIAL IVPUSH SCH (10:39)
--- NOTE | 2018-10-24 13:33 | PN ---
Progress Note, Physician History of Present Illness: Pt had vomiting episode last night but states he is feeling a bit better. So far has tolerated liquid diet without vomiting today and had a bowel movement. WBC continues to trend up. Denies cough/SOB or any other specific complaints. Tmax 99F. - Current Medication List Current Medications: Active Medications Acetaminophen (Ofirmev Injection -) 1,000 mg IVPB Q6H PRN PRN Reason: PAIN LEVEL 7 - 10 Benzocaine/Butamben/Tetracaine HCl (Cetacaine [place] -) 1 spray TP DAILY PRN PRN Reason: SORE THROAT Benzocaine/Menthol (Cepacol Lozenge -) 1 each MM PRN PRN PRN Reason: SORE THROAT Heparin Sodium (Porcine) (Heparin -) 5,000 unit SQ BID [facility] Last Admin: 10/24/18 10:38 Dose: 5,000 unit Amino Acids (Clinimix -) 1,000 mls @ 42 mls/hr IV Q23H [facility] Last Admin: 10/23/18 22:42 Dose: 42 mls/hr Metoprolol Tartrate (Lopressor -) 25 mg PO BID [facility] Last Admin: 10/24/18 10:38 Dose: 25 mg Ondansetron HCl (Zofran Injection) 4 mg IVPUSH Q4H PRN PRN Reason: NAUSEA AND/OR VOMITING Last Admin: 10/23/18 22:33 Dose: 4 mg Pantoprazole Sodium (Protonix Iv) 40 mg IVPUSH DAILY [facility] Last Admin: 10/24/18 10:39 Dose: 40 mg - Objective Vital Signs: Vital Signs Temperature 97.6 F 10/24/18 09:25 Pulse Rate 75 10/24/18 09:25 Respiratory Rate 24 H 10/24/18 09:25 Blood Pressure 114/70 10/24/18 09:25 O2 Sat by Pulse Oximetry (%) 94 L 10/24/18 09:00 Constitutional: Yes: No Distress, Calm Cardiovascular: Yes: Regular Rate and Rhythm Respiratory: Yes: Regular Gastrointestinal: Yes: Normal Bowel Sounds, Distention Genitourinary: Yes: WNL Integumentary: Yes: WNL Wound/Incision: Yes: Dressing Dry and Intact Neurological: Yes: Alert Psychiatric: Yes: Alert Labs: CBC, BMP 10/24/18 07:00 10/24/18 07:00 INR, PTT INR 1.29 (0.83-1.09) H 10/11/18 20:30 Problem List - Problems (1) Acute kidney injury Code(s): N17.9 - ACUTE KIDNEY FAILURE, UNSPECIFIED (2) Appendix perforation Code(s): K35.32 - ACUTE APPENDICITIS WITH PERF AND LOC PERITONITIS, W/O ABSCS (3) Bowel obstruction Code(s): K56.609 - UNSP INTESTNL OBST, UNSP TO PARTIAL VERSUS COMPLETE OBST Qualifiers: Intestinal obstruction type: other intestinal obstruction (4) Bowel perforation Code(s): K63.1 - PERFORATION OF INTESTINE (NONTRAUMATIC) (5) Cerebral palsy Code(s): G80.9 - CEREBRAL PALSY, UNSPECIFIED (6) Renal failure Code(s): N19 - UNSPECIFIED KIDNEY FAILURE Qualifiers: Renal failure chronicity: acute (7) Sepsis Code(s): A41.9 - SEPSIS, UNSPECIFIED ORGANISM Assessment/Plan Appendicitis with rupture /Fecal Peritonitis s/p ex-lap/ileocecectomy/ileocolic anastamosis Small bowel obstruction Sepsis s/p respiratory failure TITI Cerebral Palsy Leukocytosis -- wbc continues to trend upward - 6 x 2 cm pelvic fluid collection noted on CT from 10/12/18 - ? source -- If pt becomes febrile/persistent leukocytosis repeat blood cultures -- consider repeat CT Abd/Pelvis -- will restart antibiotics for now, monitor wbc/vitals, currently stable -- surgical follow up
[2018-10-24] MEDS ORDERED: PIPERACILLIN/TAZOBACTAM 3.375 GM VIAL IVPB ONE (13:46)
[2018-10-24] MEDS ORDERED: DEXTROSE 5%-WATER - 50 ML IVPB ONE (13:46)
[2018-10-24] MEDS: PIPERACILLIN/TAZOB 3.375 GM 3.375 GM in DEXTROSE 5%-WATER - 50 ML IVPB SCH ×2 (14:04→17:09)
[2018-10-24] MEDS: ONDANSETRON 4 MG/2 ML VIAL IVPUSH PRN (20:51)
--- NOTE | 2018-10-24 22:09 | PN ---
Progress Note, Physician History of Present Illness: No new complaints - Current Medication List Current Medications: Active Medications Acetaminophen (Ofirmev Injection -) 1,000 mg IVPB Q6H PRN PRN Reason: PAIN LEVEL 7 - 10 Benzocaine/Butamben/Tetracaine HCl (Cetacaine [place] -) 1 spray TP DAILY PRN PRN Reason: SORE THROAT Benzocaine/Menthol (Cepacol Lozenge -) 1 each MM PRN PRN PRN Reason: SORE THROAT Heparin Sodium (Porcine) (Heparin -) 5,000 unit SQ BID [facility] Last Admin: 10/24/18 21:27 Dose: 5,000 unit Amino Acids (Clinimix -) 1,000 mls @ 42 mls/hr IV Q23H [facility] Last Admin: 10/23/18 22:42 Dose: 42 mls/hr Piperacillin Sod/Tazobactam (Sod 3.375 gm/ Dextrose) 50 mls @ 100 mls/hr IVPB Q8H-IV [facility]; Protocol Last Admin: 10/24/18 17:09 Dose: Not Given Metoprolol Tartrate (Lopressor -) 25 mg PO BID [facility] Last Admin: 10/24/18 21:27 Dose: 25 mg Ondansetron HCl (Zofran Injection) 4 mg IVPUSH Q4H PRN PRN Reason: NAUSEA AND/OR VOMITING Last Admin: 10/24/18 20:51 Dose: 4 mg Pantoprazole Sodium (Protonix Iv) 40 mg IVPUSH DAILY [facility] Last Admin: 10/24/18 10:39 Dose: 40 mg - Objective Vital Signs: Vital Signs Temperature 97.9 F 10/24/18 20:54 Pulse Rate 66 10/24/18 20:54 Respiratory Rate 20 10/24/18 20:54 Blood Pressure 121/71 10/24/18 20:54 O2 Sat by Pulse Oximetry (%) 94 L 10/24/18 20:36 Neck: Yes: WNL, Supple Cardiovascular: Yes: WNL, Regular Rate and Rhythm Respiratory: Yes: WNL, Regular, CTA Bilaterally Gastrointestinal: Yes: Soft Edema: No Labs: CBC, BMP 10/24/18 07:00 10/24/18 07:00 INR, PTT INR 1.29 (0.83-1.09) H 10/11/18 20:30 Problem List - Problems (1) Sepsis Assessment/Plan: WBC elevated Restarted IV antibxs If persists may need repeat ct scan abd/pelvis and panculture Code(s): A41.9 - SEPSIS, UNSPECIFIED ORGANISM (2) Appendix perforation Assessment/Plan: S/P exp lap/ileocectomy Pneumo-peritoneum Pt tolerating diet Code(s): K35.32 - ACUTE APPENDICITIS WITH PERF AND LOC PERITONITIS, W/O ABSCS (3) Cerebral palsy Code(s): G80.9 - CEREBRAL PALSY, UNSPECIFIED (4) Paroxysmal atrial fibrillation with rapid ventricular response Code(s): I48.0 - PAROXYSMAL ATRIAL FIBRILLATION
[2018-10-24] MEDS: AMINO ACIDS 4.25%/D5W 1,000 ML IV SCH (22:41)
[2018-10-25] MEDS ORDERED: DEXTROSE 5%-WATER - 50 ML IVPB ONE ×4 (01:20→17:18)
[2018-10-25] MEDS ORDERED: PIPERACILLIN/TAZOBACTAM 3.375 GM VIAL IVPB ONE ×4 (01:20→17:18)
[2018-10-25] MEDS: PIPERACILLIN/TAZOB 3.375 GM 3.375 GM in DEXTROSE 5%-WATER - 50 ML IVPB SCH ×3 (01:29→17:22)
[2018-10-25 06:49] LABS: BASO % 0.4 % (0-2.0); EOS % 0.4 % (0-4.5); HEMATOCRIT 32.6 % (35.4-49); HEMOGLOBIN 10.9 GM/dL (11.7-16.9); LYMPH % 9.8 % (8-40); MCH 29.7 pg (25.7-33.7); MCHC 33.4 g/dl (32.0-35.9); MEAN CELL VOLUME 88.9 fl (80-96); MEAN PLT VOLUME 7.5 fl (7.5-11.1); MONO % 10.2 % (3.8-10.2); NEUT % 79.2 % (42.8-82.8); PLATELET COUNT 507 K/MM3 (134-434); RBC 3.67 M/mm3 (4.00-5.60); RDW 14.7 % (11.9-15.9); WHITE BLOOD COUNT 10.1 K/mm3 (4.0-10.0)
[2018-10-25 07:19] LABS: ALBUMIN 1.9 g/dl (3.4-5.0); ALK PHOS 120 U/L (45-117); ANION GAP 7 MMOL/L (8-16); BILIRUBIN,TOTAL 0.6 mg/dL (0.2-1); BLOOD UREA NITROGEN 17 mg/dL (7-18); CALCIUM 8.2 mg/dL (8.5-10.1); CHLORIDE 102 mmol/L (98-107); CO2 26 mmol/L (21-32); CREATININE 0.9 mg/dL (0.55-1.3); GLUCOSE,RANDOM 103 mg/dL (74-106); POTASSIUM 3.8 mmol/L (3.5-5.1); SGOT/AST 24 U/L (15-37); SGPT/ALT 59 U/L (13-61); SODIUM 135 mmol/L (136-145); TOT PROT 5.4 g/dl (6.4-8.2)
--- NOTE | 2018-10-25 10:11 | PN ---
Progress Note, Physician History of Present Illness: Remains in SR, afebrile, tolerating meals and having flatus, abd distension slowly improving, awaiting BM. - Current Medication List Current Medications: Active Medications Acetaminophen (Ofirmev Injection -) 1,000 mg IVPB Q6H PRN PRN Reason: PAIN LEVEL 7 - 10 Benzocaine/Butamben/Tetracaine HCl (Cetacaine [place] -) 1 spray TP DAILY PRN PRN Reason: SORE THROAT Benzocaine/Menthol (Cepacol Lozenge -) 1 each MM PRN PRN PRN Reason: SORE THROAT Heparin Sodium (Porcine) (Heparin -) 5,000 unit SQ BID [facility] Last Admin: 10/24/18 21:27 Dose: 5,000 unit Amino Acids (Clinimix -) 1,000 mls @ 42 mls/hr IV Q23H [facility] Last Admin: 10/24/18 22:41 Dose: 42 mls/hr Piperacillin Sod/Tazobactam (Sod 3.375 gm/ Dextrose) 50 mls @ 100 mls/hr IVPB Q8H-IV [facility]; Protocol Last Admin: 10/25/18 01:29 Dose: 100 mls/hr Metoprolol Tartrate (Lopressor -) 25 mg PO BID [facility] Last Admin: 10/24/18 21:27 Dose: 25 mg Ondansetron HCl (Zofran Injection) 4 mg IVPUSH Q4H PRN PRN Reason: NAUSEA AND/OR VOMITING Last Admin: 10/24/18 20:51 Dose: 4 mg Pantoprazole Sodium (Protonix Iv) 40 mg IVPUSH DAILY [facility] Last Admin: 10/24/18 10:39 Dose: 40 mg - Objective Vital Signs: Vital Signs Temperature 98 F 10/25/18 09:00 Pulse Rate 76 10/25/18 09:00 Respiratory Rate 18 10/25/18 09:00 Blood Pressure 121/72 10/25/18 09:00 O2 Sat by Pulse Oximetry (%) 94 L 10/24/18 20:36 Constitutional: Yes: No Distress, Calm, Thin Neck: Yes: Supple Cardiovascular: Yes: Regular Rate and Rhythm Respiratory: Yes: Regular, Diminished Gastrointestinal: Yes: Soft, Distention, Hypoactive Bowel Sounds Edema: No Labs: CBC, BMP 10/25/18 06:30 10/25/18 06:30 INR, PTT INR 1.29 (0.83-1.09) H 10/11/18 20:30 Problem List - Problems (1) Paroxysmal atrial fibrillation with rapid ventricular response Code(s): I48.0 - PAROXYSMAL ATRIAL FIBRILLATION (2) Appendix perforation Code(s): K35.32 - ACUTE APPENDICITIS WITH PERF AND LOC PERITONITIS, W/O ABSCS (3) Bowel perforation Code(s): K63.1 - PERFORATION OF INTESTINE (NONTRAUMATIC) (4) Cerebral palsy Code(s): G80.9 - CEREBRAL PALSY, UNSPECIFIED (5) PSVT (paroxysmal supraventricular tachycardia) Code(s): I47.1 - SUPRAVENTRICULAR TACHYCARDIA (6) Sepsis Code(s): A41.9 - SEPSIS, UNSPECIFIED ORGANISM (7) Acute kidney injury Code(s): N17.9 - ACUTE KIDNEY FAILURE, UNSPECIFIED Assessment/Plan 10/12/2018 Normal biventricular size and fxn, mild MR, tr OR 1. Pneumo-peritoneum due to bowel perforation/fecal peritonitis/SBO post Exp-Lap , ileocecetomy for a ruptured appendicitis with post-op ileus 2. PAF [id number] score of 0 and PSVT currently in sinus rhythm 3. Leukocytosis, improving 4. Post acute respiratory failure 5. History of Cerebral palsy 6. Acute renal insufficiency due to sepsis syndrome/resolved PLAN: 1. No indications for long tern anticoagulation considering the above noted [id number] score of 0 and recommend ASA unless contraindicated 2. Restarted antibiotic course per ID 3. Advance diet as tolerated 4. DVT prophylaxis 5. Encourage ambulation
[2018-10-25] MEDS: PANTOPRAZOLE SODIUM 40 MG VIAL IVPUSH SCH (10:45)
[2018-10-25] MEDS: METOPROLOL TARTRATE 25 MG TABLET (FP) PO SCH ×2 (10:45→21:14)
[2018-10-25] MEDS: HEPARIN NA (PORCINE) 5,000 UNITS/ML 1ML VIAL SQ SCH ×2 (10:46→21:14)
--- NOTE | 2018-10-25 14:47 | PN ---
Progress Note, Physician - Current Medication List Current Medications: Active Medications Acetaminophen (Ofirmev Injection -) 1,000 mg IVPB Q6H PRN PRN Reason: PAIN LEVEL 7 - 10 Benzocaine/Butamben/Tetracaine HCl (Cetacaine [place] -) 1 spray TP DAILY PRN PRN Reason: SORE THROAT Benzocaine/Menthol (Cepacol Lozenge -) 1 each MM PRN PRN PRN Reason: SORE THROAT Heparin Sodium (Porcine) (Heparin -) 5,000 unit SQ BID [facility] Last Admin: 10/25/18 10:46 Dose: 5,000 unit Amino Acids (Clinimix -) 1,000 mls @ 42 mls/hr IV Q23H [facility] Last Admin: 10/24/18 22:41 Dose: 42 mls/hr Piperacillin Sod/Tazobactam (Sod 3.375 gm/ Dextrose) 50 mls @ 100 mls/hr IVPB Q8H-IV [facility]; Protocol Last Admin: 10/25/18 10:46 Dose: 100 mls/hr Metoprolol Tartrate (Lopressor -) 25 mg PO BID [facility] Last Admin: 10/25/18 10:45 Dose: 25 mg Ondansetron HCl (Zofran Injection) 4 mg IVPUSH Q4H PRN PRN Reason: NAUSEA AND/OR VOMITING Last Admin: 10/24/18 20:51 Dose: 4 mg Pantoprazole Sodium (Protonix Iv) 40 mg IVPUSH DAILY [facility] Last Admin: 10/25/18 10:45 Dose: 40 mg - Objective Vital Signs: Vital Signs Temperature 98.5 F 10/25/18 14:37 Pulse Rate 76 10/25/18 14:37 Respiratory Rate 18 10/25/18 14:37 Blood Pressure 117/66 10/25/18 14:37 O2 Sat by Pulse Oximetry (%) 94 L 10/25/18 09:00 Labs: CBC, BMP 10/25/18 06:30 10/25/18 06:30 INR, PTT INR 1.29 (0.83-1.09) H 10/11/18 20:30
--- NOTE | 2018-10-25 19:06 | PN ---
Progress Note, Physician History of Present Illness: comfortable - Current Medication List Current Medications: Active Medications Acetaminophen (Ofirmev Injection -) 1,000 mg IVPB Q6H PRN PRN Reason: PAIN LEVEL 7 - 10 Benzocaine/Butamben/Tetracaine HCl (Cetacaine [place] -) 1 spray TP DAILY PRN PRN Reason: SORE THROAT Benzocaine/Menthol (Cepacol [place] -) 1 each MM PRN PRN PRN Reason: SORE THROAT Heparin Sodium (Porcine) (Heparin -) 5,000 unit SQ BID [facility] Last Admin: 10/25/18 10:46 Dose: 5,000 unit Amino Acids (Clinimix -) 1,000 mls @ 42 mls/hr IV Q23H [facility] Last Admin: 10/24/18 22:41 Dose: 42 mls/hr Piperacillin Sod/Tazobactam (Sod 3.375 gm/ Dextrose) 50 mls @ 100 mls/hr IVPB Q8H-IV [facility]; Protocol Last Admin: 10/25/18 17:22 Dose: 100 mls/hr Metoprolol Tartrate (Lopressor -) 25 mg PO BID [facility] Last Admin: 10/25/18 10:45 Dose: 25 mg Ondansetron HCl (Zofran Injection) 4 mg IVPUSH Q4H PRN PRN Reason: NAUSEA AND/OR VOMITING Last Admin: 10/24/18 20:51 Dose: 4 mg Pantoprazole Sodium (Protonix Iv) 40 mg IVPUSH DAILY [facility] Last Admin: 10/25/18 10:45 Dose: 40 mg - Objective Vital Signs: Vital Signs Temperature 98.5 F 10/25/18 14:37 Pulse Rate 76 10/25/18 14:37 Respiratory Rate 18 10/25/18 14:37 Blood Pressure 117/66 10/25/18 14:37 O2 Sat by Pulse Oximetry (%) 94 L 10/25/18 09:00 Constitutional: Yes: No Distress HENT: Yes: Atraumatic Neck: Yes: Supple Cardiovascular: Yes: Regular Rate and Rhythm Respiratory: Yes: CTA Bilaterally Gastrointestinal: Yes: Hypoactive Bowel Sounds Extremities: Yes: WNL Edema: No Neurological: Yes: Alert, Oriented Labs: CBC, BMP 10/25/18 06:30 10/25/18 06:30 INR, PTT INR 1.29 (0.83-1.09) H 10/11/18 20:30 Problem List - Problems (1) Appendix perforation Assessment/Plan: s/p surgery iv abx prn pain meds Code(s): K35.32 - ACUTE APPENDICITIS WITH PERF AND LOC PERITONITIS, W/O ABSCS (2) Bowel obstruction Assessment/Plan: on clear liquid diet now Code(s): K56.609 - UNSP INTESTNL OBST, UNSP TO PARTIAL VERSUS COMPLETE OBST Qualifiers: Intestinal obstruction type: other intestinal obstruction (3) Bowel perforation Code(s): K63.1 - PERFORATION OF INTESTINE (NONTRAUMATIC) (4) Sepsis Assessment/Plan: on abx id on board Code(s): A41.9 - SEPSIS, UNSPECIFIED ORGANISM
[2018-10-25] MEDS: AMINO ACIDS 4.25%/D5W 1,000 ML IV SCH (21:15)
[2018-10-26] MEDS ORDERED: PIPERACILLIN/TAZOBACTAM 3.375 GM VIAL IVPB ONE ×2 (01:15→09:59)
[2018-10-26] MEDS ORDERED: DEXTROSE 5%-WATER - 50 ML IVPB ONE ×2 (01:15→10:00)
[2018-10-26] MEDS: PIPERACILLIN/TAZOB 3.375 GM 3.375 GM in DEXTROSE 5%-WATER - 50 ML IVPB SCH ×2 (01:30→10:23)
[2018-10-26 06:50] LABS: BASO % 0.5 % (0-2.0); EOS % 0.7 % (0-4.5); HEMATOCRIT 32.9 % (35.4-49); HEMOGLOBIN 10.8 GM/dL (11.7-16.9); LYMPH % 11.9 % (8-40); MCH 29.4 pg (25.7-33.7); MCHC 32.8 g/dl (32.0-35.9); MEAN CELL VOLUME 89.5 fl (80-96); MEAN PLT VOLUME 7.4 fl (7.5-11.1); MONO % 11.7 % (3.8-10.2); NEUT % 75.2 % (42.8-82.8); PLATELET COUNT 532 K/MM3 (134-434); RBC 3.68 M/mm3 (4.00-5.60); RDW 14.7 % (11.9-15.9)
[2018-10-26 07:41] LABS: ALBUMIN 1.9 g/dl (3.4-5.0); ALK PHOS 105 U/L (45-117); ANION GAP 7 MMOL/L (8-16); BILIRUBIN,TOTAL 0.5 mg/dL (0.2-1); BLOOD UREA NITROGEN 15 mg/dL (7-18); CALCIUM 8.4 mg/dL (8.5-10.1); CHLORIDE 102 mmol/L (98-107); CO2 26 mmol/L (21-32); CREATININE 0.9 mg/dL (0.55-1.3); GLUCOSE,RANDOM 91 mg/dL (74-106); POTASSIUM 3.9 mmol/L (3.5-5.1); SGOT/AST 15 U/L (15-37); SGPT/ALT 44 U/L (13-61); SODIUM 136 mmol/L (136-145); TOT PROT 5.3 g/dl (6.4-8.2)
--- NOTE | 2018-10-26 09:35 | PN ---
Progress Note, Physician Chief Complaint: abdominal pain History of Present Illness: 48 yo male PMH CP here with his mother c/o abd pain n/v. states abd pain started one week ago. initially with mild discomfort and nausea, over the last 2 days pain has progressed to vomiting . He has been stable post operatively. consuming clears and he reports a loose BM. - Current Medication List Current Medications: Active Medications Acetaminophen (Ofirmev Injection -) 1,000 mg IVPB Q6H PRN PRN Reason: PAIN LEVEL 7 - 10 Benzocaine/Butamben/Tetracaine HCl (Cetacaine [place] -) 1 spray TP DAILY PRN PRN Reason: SORE THROAT Benzocaine/Menthol (Cepacol Lozenge -) 1 each MM PRN PRN PRN Reason: SORE THROAT Heparin Sodium (Porcine) (Heparin -) 5,000 unit SQ BID [facility] Last Admin: 10/25/18 21:14 Dose: 5,000 unit Piperacillin Sod/Tazobactam (Sod 3.375 gm/ Dextrose) 50 mls @ 100 mls/hr IVPB Q8H-IV [facility]; Protocol Last Admin: 10/26/18 01:30 Dose: 100 mls/hr Metoprolol Tartrate (Lopressor -) 25 mg PO BID [facility] Last Admin: 10/25/18 21:14 Dose: 25 mg Ondansetron HCl (Zofran Injection) 4 mg IVPUSH Q4H PRN PRN Reason: NAUSEA AND/OR VOMITING Last Admin: 10/24/18 20:51 Dose: 4 mg Pantoprazole Sodium (Protonix Iv) 40 mg IVPUSH DAILY [facility] Last Admin: 10/25/18 10:45 Dose: 40 mg - Objective Vital Signs: Vital Signs Temperature 98.4 F 10/26/18 09:02 Pulse Rate 75 10/26/18 09:02 Respiratory Rate 18 10/26/18 09:02 Blood Pressure 120/74 10/26/18 09:02 O2 Sat by Pulse Oximetry (%) 94 L 10/25/18 22:00 Vital Signs Period Temp Pulse Resp BP Sys/Osorio Pulse Ox Last 24 Hr 97.5 F-98.5 F 74-83 16-18 84-132/45-74 94-94 Constitutional: Yes: Well Nourished, No Distress, Calm Eyes: Yes: Conjunctiva Clear, EOM Intact HENT: Yes: Atraumatic, Normocephalic Neck: Yes: Supple, Trachea Midline Respiratory: Yes: Regular, CTA Bilaterally Gastrointestinal: Yes: Normal Bowel Sounds, Soft. No: Tenderness ...Rectal Exam: Yes: Deferred Genitourinary: No: CVA Tenderness - Left, CVA Tenderness - Right Breast(s): No: Mass, Skin Changes Musculoskeletal: No: Muscle Pain, Muscle Weakness Extremities: No: Cool, Cyanosis Edema: No Peripheral Pulses WNL: Yes Peripheral Pulses: Left Radial: 2+, Right Radial: 2+, Left Doralis Pedis: 2+, Right Dorsalis Pedis: 2+, Left Femoral: 2+, Right Femoral: 2+ Integumentary: No: Jaundice, Rash Neurological: Yes: Alert, Oriented Psychiatric: Yes: Alert, Oriented Labs: CBC, BMP 10/26/18 05:30 10/26/18 05:30 INR, PTT INR 1.29 (0.83-1.09) H 10/11/18 20:30 Problem List - Problems (1) Bowel perforation Assessment/Plan: 48yo male with peritonitis and perforated viscus that will need surgical exploration POD#11 s/p Exp Lap, ileocecetomy for a ruptured appendicitis, post operative ileus. Now resuemd Gi function. no fevers, WBC 17 now 10.9, tolerating diet. diet as tolerated IVF hydration wound care orders for RN Consider repeat CT scan Abd Pelv with IV and PO given peristance of leukocytosis IV antibiotics per ID Adequate analgesia OOB and ambulate Discharge planning for Thursday Code(s): K63.1 - PERFORATION OF INTESTINE (NONTRAUMATIC) (2) Cerebral palsy Code(s): G80.9 - CEREBRAL PALSY, UNSPECIFIED (3) Bowel obstruction Code(s): K56.609 - UNSP INTESTNL OBST, UNSP TO PARTIAL VERSUS COMPLETE OBST Qualifiers: Intestinal obstruction type: other intestinal obstruction (4) Renal failure Code(s): N19 - UNSPECIFIED KIDNEY FAILURE Qualifiers: Renal failure chronicity: acute (5) Sepsis Code(s): A41.9 - SEPSIS, UNSPECIFIED ORGANISM
[2018-10-26] MEDS: PANTOPRAZOLE SODIUM 40 MG VIAL IVPUSH SCH (10:22)
[2018-10-26] MEDS: HEPARIN NA (PORCINE) 5,000 UNITS/ML 1ML VIAL SQ SCH ×2 (10:22→21:59)
[2018-10-26] MEDS: METOPROLOL TARTRATE 25 MG TABLET (FP) PO SCH ×2 (10:23→21:59)
--- NOTE | 2018-10-26 14:07 | PN ---
Progress Note, Physician - Current Medication List Current Medications: Active Medications Acetaminophen (Ofirmev Injection -) 1,000 mg IVPB Q6H PRN PRN Reason: PAIN LEVEL 7 - 10 Benzocaine/Butamben/Tetracaine HCl (Cetacaine [place] -) 1 spray TP DAILY PRN PRN Reason: SORE THROAT Benzocaine/Menthol (Cepacol Lozenge -) 1 each MM PRN PRN PRN Reason: SORE THROAT Heparin Sodium (Porcine) (Heparin -) 5,000 unit SQ BID [facility] Last Admin: 10/26/18 10:22 Dose: 5,000 unit Piperacillin Sod/Tazobactam (Sod 3.375 gm/ Dextrose) 50 mls @ 100 mls/hr IVPB Q8H-IV [facility]; Protocol Last Admin: 10/26/18 10:23 Dose: 100 mls/hr Metoprolol Tartrate (Lopressor -) 25 mg PO BID [facility] Last Admin: 10/26/18 10:23 Dose: 25 mg Ondansetron HCl (Zofran Injection) 4 mg IVPUSH Q4H PRN PRN Reason: NAUSEA AND/OR VOMITING Last Admin: 10/24/18 20:51 Dose: 4 mg Pantoprazole Sodium (Protonix Iv) 40 mg IVPUSH DAILY [facility] Last Admin: 10/26/18 10:22 Dose: 40 mg - Objective Vital Signs: Vital Signs Temperature 98.4 F 10/26/18 09:02 Pulse Rate 75 10/26/18 09:02 Respiratory Rate 18 10/26/18 09:02 Blood Pressure 120/74 10/26/18 09:02 O2 Sat by Pulse Oximetry (%) 94 L 10/26/18 11:56 Labs: CBC, BMP 10/26/18 05:30 10/26/18 05:30 INR, PTT INR 1.29 (0.83-1.09) H 10/11/18 20:30
--- NOTE | 2018-10-26 14:09 | PN ---
Progress Note, Physician Chief Complaint: Feels better History of Present Illness: Patient was seen and examined. Awake and alert. Chart was reviewed Denies chest pain, SOB or palpitations - Current Medication List Current Medications: Active Medications Acetaminophen (Ofirmev Injection -) 1,000 mg IVPB Q6H PRN PRN Reason: PAIN LEVEL 7 - 10 Benzocaine/Butamben/Tetracaine HCl (Cetacaine [place] -) 1 spray TP DAILY PRN PRN Reason: SORE THROAT Benzocaine/Menthol (Cepacol Lozenge -) 1 each MM PRN PRN PRN Reason: SORE THROAT Heparin Sodium (Porcine) (Heparin -) 5,000 unit SQ BID [facility] Last Admin: 10/26/18 10:22 Dose: 5,000 unit Metoprolol Tartrate (Lopressor -) 25 mg PO BID [facility] Last Admin: 10/26/18 10:23 Dose: 25 mg Ondansetron HCl (Zofran Injection) 4 mg IVPUSH Q4H PRN PRN Reason: NAUSEA AND/OR VOMITING Last Admin: 10/24/18 20:51 Dose: 4 mg Pantoprazole Sodium (Protonix Iv) 40 mg IVPUSH DAILY [facility] Last Admin: 10/26/18 10:22 Dose: 40 mg - Objective Vital Signs: Vital Signs Temperature 98.4 F 10/26/18 09:02 Pulse Rate 75 10/26/18 09:02 Respiratory Rate 18 10/26/18 09:02 Blood Pressure 120/74 10/26/18 09:02 O2 Sat by Pulse Oximetry (%) 94 L 10/26/18 11:56 Eyes: Yes: PERRL HENT: Yes: Atraumatic Neck: Yes: Supple Cardiovascular: Yes: Regular Rate and Rhythm, S1, S2 Respiratory: Yes: CTA Bilaterally Gastrointestinal: Yes: Normal Bowel Sounds, Distention, Other (Post op) Edema: No Additional Findings/Remarks: - Review of Systems Constitutional: denies: Chills, Fever Cardiovascular: denies Chest Pain, Shortness of Breath. denies: Palpitations Respiratory: denies Cough, SOB, SOB on Exertion. denies: Hemoptysis, Orthopnea , PND Gastrointestinal: denies: Abdominal Pain, Constipation, Diarrhea, Melena, Nausea , Rectal Bleeding, Vomiting Genitourinary: denies: Dysuria, Hematuria Musculoskeletal: denies: Back Pain, Joint Pain Neurological: denies: Dizziness, Headache, Seizure, Syncope Labs: CBC, BMP 10/26/18 05:30 10/26/18 05:30 Problem List - Problems (1) PSVT (paroxysmal supraventricular tachycardia) Code(s): I47.1 - SUPRAVENTRICULAR TACHYCARDIA (2) Sinus tachycardia Code(s): R00.0 - TACHYCARDIA, UNSPECIFIED (3) Appendix perforation Code(s): K35.32 - ACUTE APPENDICITIS WITH PERF AND LOC PERITONITIS, W/O ABSCS (4) Bowel obstruction Code(s): K56.609 - UNSP INTESTNL OBST, UNSP TO PARTIAL VERSUS COMPLETE OBST Qualifiers: Intestinal obstruction type: other intestinal obstruction (5) Bowel perforation Code(s): K63.1 - PERFORATION OF INTESTINE (NONTRAUMATIC) (6) Cerebral palsy Code(s): G80.9 - CEREBRAL PALSY, UNSPECIFIED (7) Renal failure Code(s): N19 - UNSPECIFIED KIDNEY FAILURE Qualifiers: Renal failure chronicity: acute (8) Sepsis Code(s): A41.9 - SEPSIS, UNSPECIFIED ORGANISM Assessment/Plan 1. Pneumo-peritoneum due to bowel perforation/fecal peritonitis/SBO post Exp-Lap , ileocecetomy for a ruptured appendicitis with post-op ileus 2. PAF [id number] score of 0 and PSVT currently in sinus rhythm 3. Leukocytosis 4. Post acute respiratory failure 5. History of Cerebral palsy 6. Acute renal insufficiency due to sepsis syndrome/resolved PLAN: 1. No indications for long tern anticoagulation considering the above noted [id number] score of 0 and recommend ASA unless contraindicated 2. Metoprolol as tolerated 3. Advance diet as tolerated 4. DVT prophylaxis 5. Encourage ambulation present therapy Jet Blank MD
[2018-10-26] MEDS: ONDANSETRON 4 MG/2 ML VIAL IVPUSH PRN (17:45)
--- NOTE | 2018-10-26 18:39 | PN ---
Progress Note, Physician History of Present Illness: comfortable - Current Medication List Current Medications: Active Medications Acetaminophen (Ofirmev Injection -) 1,000 mg IVPB Q6H PRN PRN Reason: PAIN LEVEL 7 - 10 Benzocaine/Butamben/Tetracaine HCl (Cetacaine [place] -) 1 spray TP DAILY PRN PRN Reason: SORE THROAT Benzocaine/Menthol (Cepacol Lozenge -) 1 each MM PRN PRN PRN Reason: SORE THROAT Heparin Sodium (Porcine) (Heparin -) 5,000 unit SQ BID [facility] Last Admin: 10/26/18 10:22 Dose: 5,000 unit Metoprolol Tartrate (Lopressor -) 25 mg PO BID [facility] Last Admin: 10/26/18 10:23 Dose: 25 mg Ondansetron HCl (Zofran Injection) 4 mg IVPUSH Q4H PRN PRN Reason: NAUSEA AND/OR VOMITING Last Admin: 10/26/18 17:45 Dose: 4 mg Pantoprazole Sodium (Protonix Iv) 40 mg IVPUSH DAILY [facility] Last Admin: 10/26/18 10:22 Dose: 40 mg - Objective Vital Signs: Vital Signs Temperature 98.1 F 10/26/18 14:00 Pulse Rate 88 10/26/18 14:00 Respiratory Rate 20 10/26/18 14:00 Blood Pressure 123/75 10/26/18 14:00 O2 Sat by Pulse Oximetry (%) 94 L 10/26/18 11:56 Constitutional: Yes: No Distress HENT: Yes: Atraumatic Neck: Yes: Supple Cardiovascular: Yes: Regular Rate and Rhythm Respiratory: Yes: CTA Bilaterally Gastrointestinal: Yes: Normal Bowel Sounds Peripheral Pulses WNL: Yes Neurological: Yes: Alert, Oriented Labs: CBC, BMP 10/26/18 05:30 10/26/18 05:30 INR, PTT INR 1.29 (0.83-1.09) H 10/11/18 20:30 Problem List - Problems (1) Appendix perforation Assessment/Plan: s/p surgery completed abx course Code(s): K35.32 - ACUTE APPENDICITIS WITH PERF AND LOC PERITONITIS, W/O ABSCS (2) Bowel obstruction Assessment/Plan: on regular diet per surgery Code(s): K56.609 - UNSP INTESTNL OBST, UNSP TO PARTIAL VERSUS COMPLETE OBST Qualifiers: Intestinal obstruction type: other intestinal obstruction (3) Bowel perforation Code(s): K63.1 - PERFORATION OF INTESTINE (NONTRAUMATIC) (4) Sepsis Assessment/Plan: on abx..completed id on board Code(s): A41.9 - SEPSIS, UNSPECIFIED ORGANISM
[2018-10-27] MEDS: PANTOPRAZOLE SODIUM 40 MG VIAL IVPUSH SCH (10:08)
[2018-10-27] MEDS: HEPARIN NA (PORCINE) 5,000 UNITS/ML 1ML VIAL SQ SCH (10:08)
[2018-10-27] MEDS: METOPROLOL TARTRATE 25 MG TABLET (FP) PO SCH (10:08)
--- NOTE | 2018-10-27 10:11 | PN ---
Progress Note, Physician History of Present Illness: Remains in SR, afebrile, tolerating meals and having loose BM, abd distension slowly improving. - Current Medication List Current Medications: Active Medications Acetaminophen (Ofirmev Injection -) 1,000 mg IVPB Q6H PRN PRN Reason: PAIN LEVEL 7 - 10 Benzocaine/Butamben/Tetracaine HCl (Cetacaine [place] -) 1 spray TP DAILY PRN PRN Reason: SORE THROAT Benzocaine/Menthol (Cepacol Lozenge -) 1 each MM PRN PRN PRN Reason: SORE THROAT Heparin Sodium (Porcine) (Heparin -) 5,000 unit SQ BID [facility] Last Admin: 10/26/18 21:59 Dose: 5,000 unit Metoprolol Tartrate (Lopressor -) 25 mg PO BID [facility] Last Admin: 10/26/18 21:59 Dose: 25 mg Ondansetron HCl (Zofran Injection) 4 mg IVPUSH Q4H PRN PRN Reason: NAUSEA AND/OR VOMITING Last Admin: 10/26/18 17:45 Dose: 4 mg Pantoprazole Sodium (Protonix Iv) 40 mg IVPUSH DAILY [facility] Last Admin: 10/26/18 10:22 Dose: 40 mg - Objective Vital Signs: Vital Signs Temperature 98 F 10/27/18 08:55 Pulse Rate 82 10/27/18 08:55 Respiratory Rate 18 10/27/18 08:55 Blood Pressure 124/68 10/27/18 08:55 O2 Sat by Pulse Oximetry (%) 96 10/26/18 20:27 Constitutional: Yes: No Distress, Calm, Thin Neck: Yes: Supple Cardiovascular: Yes: Regular Rate and Rhythm Respiratory: Yes: Regular, CTA Bilaterally Gastrointestinal: Yes: Normal Bowel Sounds, Soft, Distention Edema: No Labs: CBC, BMP 10/26/18 05:30 10/26/18 05:30 INR, PTT INR 1.29 (0.83-1.09) H 10/11/18 20:30 - ....Imaging EKG: Report Reviewed (Tele: PSVT->SR) Problem List - Problems (1) Paroxysmal atrial fibrillation with rapid ventricular response Code(s): I48.0 - PAROXYSMAL ATRIAL FIBRILLATION (2) Appendix perforation Code(s): K35.32 - ACUTE APPENDICITIS WITH PERF AND LOC PERITONITIS, W/O ABSCS (3) Bowel perforation Code(s): K63.1 - PERFORATION OF INTESTINE (NONTRAUMATIC) (4) Cerebral palsy Code(s): G80.9 - CEREBRAL PALSY, UNSPECIFIED (5) PSVT (paroxysmal supraventricular tachycardia) Code(s): I47.1 - SUPRAVENTRICULAR TACHYCARDIA Assessment/Plan 10/12/2018 Normal biventricular size and fxn, mild MR, tr [place] 1. Pneumo-peritoneum due to bowel perforation/fecal peritonitis/SBO post Exp-Lap , ileocecetomy for a ruptured appendicitis with post-op ileus 2. PAF [id number] score of 0 and PSVT currently in sinus rhythm 3. Leukocytosis 4. Post acute respiratory failure 5. History of Cerebral palsy 6. Acute renal insufficiency due to sepsis syndrome/resolved PLAN: 1. No indications for long tern anticoagulation considering the above noted [id number] score of 0 2. Metoprolol 25 bid 3. Advance diet as tolerated 4. DVT prophylaxis 5. Encourage ambulation, d/c planning
--- NOTE | 2018-10-27 11:29 | PN ---
Progress Note, Physician - Current Medication List Current Medications: Active Medications Acetaminophen (Ofirmev Injection -) 1,000 mg IVPB Q6H PRN PRN Reason: PAIN LEVEL 7 - 10 Benzocaine/Butamben/Tetracaine HCl (Cetacaine [place] -) 1 spray TP DAILY PRN PRN Reason: SORE THROAT Benzocaine/Menthol (Cepacol Lozenge -) 1 each MM PRN PRN PRN Reason: SORE THROAT Heparin Sodium (Porcine) (Heparin -) 5,000 unit SQ BID [facility] Last Admin: 10/27/18 10:08 Dose: 5,000 unit Metoprolol Tartrate (Lopressor -) 25 mg PO BID [facility] Last Admin: 10/27/18 10:08 Dose: 25 mg Ondansetron HCl (Zofran Injection) 4 mg IVPUSH Q4H PRN PRN Reason: NAUSEA AND/OR VOMITING Last Admin: 10/26/18 17:45 Dose: 4 mg Pantoprazole Sodium (Protonix Iv) 40 mg IVPUSH DAILY [facility] Last Admin: 10/27/18 10:08 Dose: 40 mg - Objective Vital Signs: Vital Signs Temperature 98 F 10/27/18 08:55 Pulse Rate 82 10/27/18 08:55 Respiratory Rate 18 10/27/18 08:55 Blood Pressure 124/68 10/27/18 08:55 O2 Sat by Pulse Oximetry (%) 96 10/26/18 20:27 Labs: CBC, BMP 10/26/18 05:30 10/26/18 05:30 INR, PTT INR 1.29 (0.83-1.09) H 10/11/18 20:30
--- NOTE | 2018-10-27 16:22 | DS ---
Physical Examination Vital Signs: Vital Signs Temperature 98 F 10/27/18 08:55 Pulse Rate 78 10/27/18 13:41 Respiratory Rate 18 10/27/18 13:41 Blood Pressure 118/76 10/27/18 13:41 O2 Sat by Pulse Oximetry (%) 98 10/27/18 09:00 Constitutional: Yes: No Distress HENT: Yes: Atraumatic Neck: Yes: Supple Cardiovascular: Yes: Regular Rate and Rhythm Respiratory: Yes: CTA Bilaterally Gastrointestinal: Yes: Normal Bowel Sounds Extremities: Yes: WNL Edema: No Neurological: Yes: Alert, Oriented Labs: CBC, BMP 10/26/18 05:30 10/26/18 05:30 Discharge Summary Reason For Visit: PERFORATION OF INTESTINE,INTESTINAL OBSTRUCTION Current Active Problems Acute kidney injury (Acute) Appendix perforation (Acute) Bowel obstruction (Acute) Bowel perforation (Acute) Cerebral palsy (Acute) PSVT (paroxysmal supraventricular tachycardia) (Acute) Paroxysmal atrial fibrillation with rapid ventricular response (Acute) Renal failure (Acute) Sepsis (Acute) Sinus tachycardia (Acute) Condition: Improved - Instructions Diet, Activity, Other Instructions: Postoperative instructions: You had a exploratory laparotomy and ileocectomy [address] Preet Calle of [facility]. Activity: Resume your usual activities gradually, but no heavy exertion or lifting more than 10-15 pounds for 4-6 weeks. Remove dressings 48 hours after surgery, if they are not already off. You may shower daily starting then, just pat the incision areas dry. No bath or swimming until skin incisions have healed. [place] should not need to be recovered with any dressings, unless you have been told otherwise. Eat lightly at first, but advance to your usual diet as tolerated. Pain: For pain, you may use and alternate Tylenol (acetaminophen) 1-2 pills and/ or ibuprofen 200 mg (1-3 pills) every 6 hours each as needed; this means that you can take one OR the other at 3-hour intervals. If you are prescribed a Tylenol/narcotic combination for severe pain, use it instead of plain Tylenol as needed and switch back when your pain starts decreasing. Do not take more than 4000 mg of acetaminophen in a day. Take medications as prescribed or indicated on the labeling. Follow-up: Call Dr. Calle' office at [phone] to make your postop appointment (Thursday in approximately 2 weeks after surgery as advised). Clinic is held in the [facility] on the first floor of [facility]. Call the office if you have: * increasing pain not responsive to pain medication * fever of 101F or higher * vomiting * unusual or increasing bleeding or drainage from wounds * increasing redness or swelling at wound sites * inability to urinate Also, see your primary medical doctor within 1-2 weeks. Referrals: Mark Camp MD [Staff Physician] - Preet Calle MD [Staff Physician] - Disposition: HOME - Home Medications Comprehensive Discharge Medication List: Ambulatory Metoprolol Tartrate [Lopressor -] 25 mg PO BID #60 tablet 10/27/18 dc
[2018-10-27 20:42] VITALS: BP 124/70; PULSE 84; TEMP 98
== END 2018-10-27 18:44 | disposition home health service (06) | DRG 710 ==
LOC: FER 09:42 → EDBD 09:42 → FER 15:15 → JSAMEDAYSX 16:02 → JICU 19:46 → J2W 10-15 08:44 → J4W 10-23 15:32
PROVIDERS: ADMIT Internal Medicine; ATTEND Internal Medicine
PROC: 0DTH0ZZ Resection of Cecum, Open Approach (ICD-10-PCS; principal; 2018-10-11 14:30)
DX: A41.9 Sepsis, unspecified organism (principal); N17.9 Acute kidney failure, unspecified; K63.1 Perforation of intestine (nontraumatic); J95.821 Acute postprocedural respiratory failure; E87.2 Acidosis; K35.33 Acute appendicitis with perforation, localized peritonitis, and gangrene, with abscess; R65.20 Severe sepsis without septic shock; I47.1 Supraventricular tachycardia; I48.0 Paroxysmal atrial fibrillation; E87.6 Hypokalemia; G80.9 Cerebral palsy, unspecified; Y83.8 Other surgical procedures as the cause of abnormal reaction of the patient, or of later complication, without mention of misadventure at the time of the procedure
CPT/HCPCS: 36415; 36600; 71045-TC-FY; 74019-TC-FY; 74176-TC; 76705-TC; 80048; 80053; 81003; 81015; 82248; 82803; 83605; 83690; 83735; 84100; 84484; 85025; 85027; 85610; 85730; 86850; 86900; 86901; 87040; 87070; 87075; 87086; 87186; 87205; 87880; 88307-TC; 90688; 93005; 93010; 93306-TC; 94002; 94760; 97116-GP; 97162-GP; 99285-25; G0008; J0131; J1644; J7030